=== PATIENT | female | born 1935 | race Caucasian/White ===

== ENCOUNTER 2018-04-20 16:14 | Emergency (ER) | payer MEDICARE, BC ==
[~2018-04-20] VITALS: Ht 157.5 cm; Wt 49.9 kg
[~2018-04-20 16:14] MED LIST: ACET325T9 PO; FURO-68 PO; FURO40TA4 PO; GABA300C18 PO; HYDR-2678 PO; Hydrocodone/Acetaminophen PO; LOSA25TA PO; LOSA25TA54 PO; MIRT15TA3 PO; OMEP40CA5 PO; POTA20LI2 PO; POTA20PA30 PO; PSYL0.5215 PO; PYRI60TA PO; PYRI60TA2 PO
--- NOTE | 2018-04-20 16:44 | PHYS DOC ---
Past Medical History Past Medical History: Depression, Hypertension Additional Past Medical Histor: myasthenia gravis Past Medical History heart murmur Past Surgical History: Cholecystectomy, Tonsillectomy Alcohol Use: None Drug Use: None Adult General Chief Complaint Chief Complaint: MECHANICAL FALL HPI HPI Patient is 82 yo female who was waiting for the bus outside [facility] and slipped, causing a moderate sized ([id number]) skin tear to anteromedial aspect RLE. Patient reports the accident was not preceded by any acute alteration. She denies chest pain, shortness of breath, dizziness, headache, abdominal pain, nausea, vomiting, or dysuria. She reports she did not hit her head and did not lose consciousness. She also reports she was able to walk after the fall. She denies taking blood thinners. She denies surgery on that right leg. She denies pain anywhere else. She reports she has received a tetanus booster within the last [address] Simon is her primary care provider. Review of Systems Review of Systems Constitutional: Denies fever or chills [] Eyes: Denies change in visual acuity, redness, or eye pain [] Respiratory: Denies cough or shortness of breath [] Cardiovascular: Denies palpitations or chest pain. GI: Denies abdominal pain, nausea, vomiting, or diarrhea [] : Denies dysuria or hematuria [] Musculoskeletal: Admits chronic low back and L leg pain. Integument: Admits dry skin on face and skin tear to right anterior tibial area Neurologic: Denies headache, focal weakness or sensory changes [] Complete systems were reviewed and found to be within normal limits, except as documented in this note. Current Medications Current Medications Current Medications Medications (Trade) Dose Ordered Sig/Nathalie Start Time Stop Time Status Last Admin Dose Admin Neomycin/ Polymyxin/ Bacitracin (Triple Antibiotic Ointment) 1 pkt 1X ONCE 04/20/18 16:45 04/20/18 16:46 DC 04/20/18 17:50 1 PKT Allergies Allergies Allergies Coded Allergies Type Severity Reaction Last Updated Verified No Known Drug Allergies 09/15/15 No Physical Exam Physical Exam Constitutional: Well developed, well nourished, no acute distress, non-toxic appearance. [] HENT: Normocephalic, atraumatic, oropharynx moist, nose normal. [] Eyes: PERRL, EOMI, conjunctiva normal, no discharge. [] Neck: Normal range of motion, no tenderness [] Cardiovascular:Heart rate regular rhythm, Blowing systolic murmur appreciated. Lungs & Thorax: Bilateral breath sounds clear to auscultation [] Abdomen: Soft, no tenderness Skin: Warm, dry, no erythema, small ([id number]) skin tear anterior aspect RLE. Significant ecchymosis around skin tear. Extremities: No tenderness, no cyanosis, no clubbing, ROM intact, no edema. Neurologic: Alert and oriented X 3, normal motor function, normal sensory function, no focal deficits noted. No FND appreciated. Face symmetric. Current Patient Data Vital Signs Vital Signs Date Time Temp Pulse Resp B/P (MAP) Pulse Ox O2 Delivery O2 Flow Rate FiO2 04/20/18 17:45 88 20 96 04/20/18 16:14 97.8 155/67 (96) Room Air 97.8 EKG EKG [] Radiology/Procedures Radiology/Procedures [] Impressions: PROCEDURE: TIBIA FIBULA RIGHT Indication: Trauma. Laceration to the right anterior mid muñoz. TECHNIQUE: 2 views of the right tibia and fibula COMPARISON: None Findings/ impression: No acute fracture or dislocation. Mild tricompartmental osteoarthritis of the knee. Ankle mortise is intact. Electronically signed by: Mateo Simon DO (04/20/2018 5:34 PM) [facility] Course & Med Decision Making Course & Med Decision Making Patient is 82 yo female who presents via EMS following mechanical fall while getting onto bus at 1555. Patient reports she is not on blood thinners, did not hit her head, and did not lose consciousness. On physical exam her vitals are WNL and she is resting comfortably with a 2cm x 3cm skin tear on the anterior aspect of her right leg. Imaging revealed no acute osseous abnormality. The wound was cleaned, bacitracin ointment applied, and dressed. Patient tolerated the procedure well. Patient ambulated unassisted with cane to bathroom after procedure. Patient asked that we speak to her PCP (Dr. Simon) to inform him of her fall, which we did (1800). Discharged patient home with instructions to follow up with PCP. Patient voiced understanding and agreement with plan. Dragon Disclaimer Dragon Disclaimer This electronic medical record was generated, in whole or in part, using a voice recognition dictation system. Laceration/Wound Repair Laceration/Wound Repair : Wound Location: lower extremity Wound's Depth, Shape: superficial Wound Explored: no foreign body removed Irrigated w/ Saline (ccs): 500 Betadine Prep?: No Wound Debrided: minimal Sterile Dressing Applied?: Yes Progress Wound cleaned with chlorhexadine and irrigated with 500mL NS. Xray appears to show possible foreign body, however on exploration of wound no object appreciated. As wound is superficial skin tear felt comfortable foreign body was not present. Cut avulsed skin away with straight iris scissors. Bacitracin abx ointment applied to wound. Telfa placed over wound. Kerlex wrapped around wound. Coban around kerlex to secure dressing. Departure Departure Impression: Primary Impression: Fall Additional Impressions: Skin tear Contusion of leg, right Disposition: 01 HOME, SELF-CARE Condition: STABLE Referrals: SHY SIMON MD (PCP) Patient Instructions: Contusion, Kytw-[id number], Fall Prevention and Home Safety , Yeat-ky-Geem, Skin Tear Care, Evvu-hv-Ucrl Additional Instructions: Do not soak your wound. You may shower. Clean wound daily with soap and water. Change dressing 2 times daily. Use over the counter antibiotic ointment with each dressing change. Use [id number] ibuprofen or Tylenol for pain. Problem Qualifiers Primary Impression: Fall Encounter type: initial encounter Qualified Codes: W19.XXXA - Unspecified fall, initial encounter Additional Impressions: Contusion of leg, right Encounter type: initial encounter Qualified Codes: S80.11XA - Contusion of right lower leg, initial encounter JUSTINE CABRAL DO Apr 20, 2018 16:43
[2018-04-20] MEDS ORDERED: NEOMY/BACITR/POLYMYXIN OINT PACKET. TP ONE (16:45)
--- NOTE | 2018-04-20 17:39 | RAD ---
Indication: Trauma. Laceration to the right anterior mid muñoz. TECHNIQUE: 2 views of the right tibia and fibula COMPARISON: None Findings/ impression: No acute fracture or dislocation. Mild tricompartmental osteoarthritis of the knee. Ankle mortise is intact. Electronically signed by: Mateo Rivas DO (04/20/2018 5:34 PM) [facility]
[2018-04-20 17:45] VITALS: BP 190/79
[2018-05-05] MEDS ORDERED: CYAN-25 PO (18:01)
[2018-05-05] MEDS ORDERED: FERR325T14 PO (18:01)
[2018-05-05] MEDS ORDERED: SERT25TA4 PO (18:01)
== END 2018-04-20 17:57 | disposition home or self-care (01) ==
LOC: ER 16:14
DX: S81.812A Laceration without foreign body, left lower leg, initial encounter (principal); G89.29 Other chronic pain; M54.5 Low back pain; F32.9 Major depressive disorder, single episode, unspecified; I10 Essential (primary) hypertension; Z90.49 Acquired absence of other specified parts of digestive tract; Z90.89 Acquired absence of other organs; W01.0XXA Fall on same level from slipping, tripping and stumbling without subsequent striking against object, initial encounter; Y93.89 Activity, other specified; Y92.89 Other specified places as the place of occurrence of the external cause; Y99.8 Other external cause status
CPT/HCPCS: 73590; 99284

== ENCOUNTER 2019-02-08 18:57 | Emergency (ER) | payer MEDICARE, BC ==
[~2019-02-08] VITALS: Ht 149.9 cm; Wt 47.2 kg
[~2019-02-08 18:57] MED LIST changes: +CYAN-25 PO; +FERR325T14 PO; +OMEP40CA45 PO; -OMEP40CA5 PO; +SERT25TA4 PO
--- NOTE | 2019-02-08 19:19 | PHYS DOC ---
Past Medical History Past Medical History: Depression, Hypertension Additional Past Medical Histor: myasthenia gravis (FIGUEROA BATES APRN) Past Surgical History: Cholecystectomy, Tonsillectomy (FIGUEROA BATES APRN) Alcohol Use: None Drug Use: None (FIGUEROA BATES APRN) Attending Signature I have participated in the care of this patient and I have reviewed and agree with all pertinent clinical information above including history, exam, and recommendations. (SEAMUS WESTFALL MD) Adult General Chief Complaint Chief Complaint: CONTISPATION HPI HPI Patient is a 83 year old Female who presents with patient states she's had con stipation for the last 4 days. Patient states she has not tried taking any stool softeners or laxatives or using enema. Patient states she is having pain at the rectum when she sits. Patient denies nausea or vomiting. Patient states she does feel distended and the lack of appetite but she is nauseated. Patient denies seeing any blood in her stool. (FIGUEROA BATES APRN) Review of Systems Review of Systems GI: Constipation and rectal pain. Denies abdominal pain, nausea, vomiting, bloody stools or diarrhea [] All other systems were reviewed and found to be within normal limits, except as documented in this note. (FIGUEROA BATES APRN) Current Medications Current Medications Current Medications Medications (Trade) Dose Ordered Sig/Nathalie Start Time Stop Time Status Last Admin Dose Admin Docusate Sodium (Enemeez) 283 mg 1X ONCE 02/08/19 19:30 02/08/19 19:31 Cancel (SEAMUS WESTFALL MD) Allergies Allergies Allergies Coded Allergies Type Severity Reaction Last Updated Verified No Known Drug Allergies 09/15/15 No (SEAMUS WESTFALL MD) Physical Exam Physical Exam Constitutional: Well developed, well nourished, no acute distress, non-toxic appearance. [] HENT: Normocephalic, atraumatic, bilateral external ears normal, oropharynx moist, no oral exudates, nose normal. [] Eyes: PERRLA, EOMI, conjunctiva normal, no discharge. [] Neck: Normal range of motion, no tenderness, supple, no stridor. [] Cardiovascular:Heart rate regular rhythm, no murmur [] Lungs & Thorax: Bilateral breath sounds clear to auscultation [] Abdomen: Bowel sounds normal, soft, no tenderness, no masses, no pulsatile masses. Stool far up in the rectal vault.[] Skin: Warm, dry, no erythema, no rash. [] Back: No tenderness, no CVA tenderness. [] Extremities: No tenderness, no cyanosis, no clubbing, ROM intact, no edema. [] Neurologic: Alert and oriented X 3, normal motor function, normal sensory function, no focal deficits noted. [] Psychologic: Affect normal, judgement normal, mood normal. [] (FIGUEROA BATES APRN) Current Patient Data Vital Signs Vital Signs Date Time Temp Pulse Resp B/P (MAP) Pulse Ox O2 Delivery O2 Flow Rate FiO2 02/08/19 21:04 81 132/51 (78) 97 02/08/19 19:10 97.7 18 Room Air 97.7 (SEAMUS WESTFALL MD) Lab Values Laboratory Tests Test 02/08/19 19:24 White Blood Count 6.1 x10^3/uL (4.0-11.0) Red Blood Count 3.85 x10^6/uL (3.50-5.40) Hemoglobin 12.0 g/dL (12.0-15.5) Hematocrit 35.7 % (36.0-47.0) L Mean Corpuscular Volume 93 fL (79-100) Mean Corpuscular Hemoglobin 31 pg (25-35) Mean Corpuscular Hemoglobin Concent 34 g/dL (31-37) Red Cell Distribution Width 13.1 % (11.5-14.5) Platelet Count 218 x10^3/uL (140-400) Neutrophils (%) (Auto) 71 % (31-73) Lymphocytes (%) (Auto) 19 % (24-48) L Monocytes (%) (Auto) 9 % (0-9) Eosinophils (%) (Auto) 1 % (0-3) Basophils (%) (Auto) 1 % (0-3) Neutrophils # (Auto) 4.3 x10^3/uL (1.8-7.7) Lymphocytes # (Auto) 1.1 x10^3/uL (1.0-4.8) Monocytes # (Auto) 0.5 x10^3/uL (0.0-1.1) Eosinophils # (Auto) 0.0 x10^3/uL (0.0-0.7) Basophils # (Auto) 0.1 x10^3/uL (0.0-0.2) Sodium Level 139 mmol/L (136-145) Potassium Level 3.5 mmol/L (3.5-5.1) Chloride Level 101 mmol/L (98-107) Carbon Dioxide Level 30 mmol/L (21-32) Anion Gap 8 (6-14) Blood Urea Nitrogen 14 mg/dL (7-20) Creatinine 0.7 mg/dL (0.6-1.0) Estimated GFR (Cockcroft-Gault) 79.5 Glucose Level 108 mg/dL (70-99) H Calcium Level 9.1 mg/dL (8.5-10.1) Laboratory Tests 02/08/19 19:24 Laboratory Tests 02/08/19 19:24 (SEAMUS WESTFALL MD) Lab Values Laboratory Tests Test 02/08/19 19:24 White Blood Count 6.1 x10^3/uL (4.0-11.0) Red Blood Count 3.85 x10^6/uL (3.50-5.40) Hemoglobin 12.0 g/dL (12.0-15.5) Hematocrit 35.7 % (36.0-47.0) L Mean Corpuscular Volume 93 fL (79-100) Mean Corpuscular Hemoglobin 31 pg (25-35) Mean Corpuscular Hemoglobin Concent 34 g/dL (31-37) Red Cell Distribution Width 13.1 % (11.5-14.5) Platelet Count 218 x10^3/uL (140-400) Neutrophils (%) (Auto) 71 % (31-73) Lymphocytes (%) (Auto) 19 % (24-48) L Monocytes (%) (Auto) 9 % (0-9) Eosinophils (%) (Auto) 1 % (0-3) Basophils (%) (Auto) 1 % (0-3) Neutrophils # (Auto) 4.3 x10^3/uL (1.8-7.7) Lymphocytes # (Auto) 1.1 x10^3/uL (1.0-4.8) Monocytes # (Auto) 0.5 x10^3/uL (0.0-1.1) Eosinophils # (Auto) 0.0 x10^3/uL (0.0-0.7) Basophils # (Auto) 0.1 x10^3/uL (0.0-0.2) Sodium Level 139 mmol/L (136-145) Potassium Level 3.5 mmol/L (3.5-5.1) Chloride Level 101 mmol/L (98-107) Carbon Dioxide Level 30 mmol/L (21-32) Anion Gap 8 (6-14) Blood Urea Nitrogen 14 mg/dL (7-20) Creatinine 0.7 mg/dL (0.6-1.0) Estimated GFR (Cockcroft-Gault) 79.5 Glucose Level 108 mg/dL (70-99) H Calcium Level 9.1 mg/dL (8.5-10.1) Laboratory Tests 02/08/19 19:24 Laboratory Tests 02/08/19 19:24 (FIGUEROA BATES APRN) EKG EKG [] (FIGUEROA BATES APRN) Radiology/Procedures Radiology/Procedures [] (FIGUEROA BATES APRN) Impressions: [facility] [address] [place], [place] [id number] IMAGING REPORT Signed PATIENT: SHEILA DAVIS ACCOUNT: [id number] : 1935 LOCATION: ER AGE: 83 SEX: F EXAM STATUS: REG ER ORD. PHYSICIAN: FIGUEROA BATES APRN REASON: CONSTIPATION, low abdominal pain PROCEDURE: KUB KUB INDICATION: Constipation. COMPARISON: CT abdomen pelvis 05/09/2013. TECHNIQUE: Supine view of the abdomen was obtained. FINDINGS: Abdomen: Nonobstructive bowel gas pattern. No free air on this limited supine image. Large amount of stool in the rectal vault. Right upper quadrant surgical clips. Limited view of the lower chest demonstrates no acute abnormality. Left convex thoracolumbar curvature. IMPRESSION: Nonobstructive bowel gas pattern. Large amount of stool in the rectal vault, consistent with patient's history of constipation. Electronically signed by: Yash Acevedo MD (02/08/2019 8:52 PM) [id number] DICTATED and SIGNED BY: YASH ACEVEDO MD DATE: 02/08/192051 (FIGUEROA BATES APRN) Course & Med Decision Making Course & Med Decision Making Abdomen is soft and nontender. Patient states she does feel pressure with palpation to the abdomen. Bowel sounds are active. Afebrile. Denies dysuria symptoms. Alert and oriented. Ambulatory with steady gait. Skin pink warm and dry. Vital signs are within normal limits. I did do a rectal exam and I can feel stool at the tip of my index finger but not able to branch operations coordinator or get any of the stool out as it is too far up in the rectal vault. Stool does feel soft. There is no blood on my finger only brown stool. After soapsuds enema given patient had a large amount of stool out. Patient states she is feeling a lot better. Xray shows IMPRESSION: Nonobstructive bowel gas pattern. Large amount of stool in the rectal vault, consistent with patient's history of constipation. Rectal Exam: Normal tone, No mass, Positive control Stool: Brown, soft Guaiac: Not indicated (FIGUEROA BATES APRN) Dragon Disclaimer Dragon Disclaimer This electronic medical record was generated, in whole or in part, using a voice recognition dictation system. (FIGUEROA BATES APRN) Departure Departure Impression: Primary Impression: Constipation Disposition: 01 HOME, SELF-CARE Condition: STABLE Referrals: SHY SIMON MD (PCP) Patient Instructions: Constipation, Adult Additional Instructions: Follow up with primary care provider if needed. Drink plenty of fluids. Problem Qualifiers Primary Impression: Constipation Constipation type: unspecified constipation type Qualified Codes: K59.00 - Constipation, unspecified FIGUEROA BATES APRN Feb 08, 2019 19:19 SEAMUS WESTFALL MD Feb 09, 2019 17:29
[2019-02-08] MEDS ORDERED: DOCUSATE SODIUM 283 MG/5 ML ENEMA. PR ONE (19:30)
[2019-02-08 19:32] LABS: BASO # 0.1 x10^3/uL (0.0-0.2); BASO % 1 % (0-3); EOS % 1 % (0-3); HEMATOCRIT 35.7 % (36.0-47.0); LYMPH # 1.1 x10^3/uL (1.0-4.8); LYMPH % 19 % (24-48); MEAN CORPUSCULAR HEMOGLOBIN 31 pg (25-35); MEAN CORPUSCULAR HGB CONC 34 g/dL (31-37); MEAN CORPUSCULAR VOLUME 93 fL (79-100); MONO # 0.5 x10^3/uL (0.0-1.1); MONO % 9 % (0-9); NEUT # 4.3 x10^3/uL (1.8-7.7); NEUT % 71 % (31-73); PLATELET COUNT 218 x10^3/uL (140-400); RED BLOOD COUNT 3.85 x10^6/uL (3.50-5.40); RED CELL DISTRIBUTION WIDTH 13.1 % (11.5-14.5); WHITE BLOOD COUNT 6.1 x10^3/uL (4.0-11.0)
[2019-02-08 19:40] LABS: CALCIUM 9.1 mg/dL (8.5-10.1); CREATININE 0.7 mg/dL (0.6-1.0); GFR 79.5; POTASSIUM 3.5 mmol/L (3.5-5.1)
--- NOTE | 2019-02-08 20:55 | RAD ---
KUB INDICATION: Constipation. COMPARISON: CT abdomen pelvis 05/09/2013. TECHNIQUE: Supine view of the abdomen was obtained. FINDINGS: Abdomen: Nonobstructive bowel gas pattern. No free air on this limited supine image. Large amount of stool in the rectal vault. Right upper quadrant surgical clips. Limited view of the lower chest demonstrates no acute abnormality. Left convex thoracolumbar curvature. IMPRESSION: Nonobstructive bowel gas pattern. Large amount of stool in the rectal vault, consistent with patient's history of constipation. Electronically signed by: De Acevedo MD (02/08/2019 8:52 PM) [facility]
[2019-02-08 21:04] VITALS: BP 132/51
== END 2019-02-08 21:10 | disposition home or self-care (01) ==
LOC: ER 18:57
DX: K59.00 Constipation, unspecified (principal); I10 Essential (primary) hypertension
CPT/HCPCS: 36415; 74018; 80048; 85025; 99285

== ENCOUNTER 2019-05-05 20:27 | Emergency (ER) | payer MEDICARE, BC ==
[~2019-05-05] VITALS: Ht 152.4 cm; Wt 45.5 kg
--- NOTE | 2019-05-05 21:17 | PHYS DOC ---
Past Medical History Past Medical History: Depression, Hypertension Additional Past Medical Histor: myasthenia gravis Past Surgical History: Cholecystectomy, Tonsillectomy Smoking Status: Never Smoker Alcohol Use: None Drug Use: None Adult General Chief Complaint Chief Complaint: CONSTIPATION HPI HPI 83-year-old female presents to the emergency department with complaints of constipation, last normal bowel movement was Tuesday. She describes loose stool since then she describes abdominal distention, does have flatus. Denies any nausea, vomiting or fever. She denies any current abdominal pain at this time. She states she's had issues like this a couple of years ago requiring an enema. Patient denies any chest pain, shortness breath, nausea, vomiting, headache or visual changes. Review of Systems Review of Systems Constitutional: Denies fever or chills [] Respiratory: Denies cough or shortness of breath [] Cardiovascular: No additional information not addressed in HPI [] GI: Denies abdominal pain, nausea, vomiting, + constipation [] Musculoskeletal: Denies back pain or joint pain [] Integument: Denies rash or skin lesions [] Neurologic: Denies headache, focal weakness or sensory changes [] All other systems were reviewed and found to be within normal limits, except as documented in this note. Allergies Allergies Allergies Coded Allergies Type Severity Reaction Last Updated Verified No Known Drug Allergies 09/15/15 No Physical Exam Physical Exam Constitutional: Well developed, well nourished, no acute distress, non-toxic appearance. [] Cardiovascular:Heart rate regular rhythm, no murmur [] Lungs & Thorax: Bilateral breath sounds clear to auscultation [] Abdomen: Bowel sounds normal, soft, no tenderness, no masses, no pulsatile masses, mild distention[] Skin: Warm, dry, no erythema, no rash. [] Back: No tenderness, no CVA tenderness. [] Extremities: No tenderness, no edema. [] Neurologic: Alert and oriented X 3, no focal deficits noted. [] Psychologic: Affect normal, judgement normal, mood normal. [] Rectal exam without hard stool in rectal vault, non bloody stool Current Patient Data Vital Signs Vital Signs Date Time Temp Pulse Resp B/P (MAP) Pulse Ox O2 Delivery O2 Flow Rate FiO2 05/05/19 20:50 98.1 106 20 171/78 (109) 95 Room Air 98.1 EKG EKG [] Radiology/Procedures Radiology/Procedures [facility] [address] [place] [address] IMAGING REPORT Signed PATIENT: SHEILA DAVIS ACCOUNT: [id number] : 1935 LOCATION: ER AGE: 83 SEX: F EXAM STATUS: REG ER ORD. PHYSICIAN: SEAMUS WESTFALL MD REASON: constipation PROCEDURE: KUB EXAM: Supine AP view of the abdomen DATE: 05/05/2019 9:12 PM INDICATION: Constipation COMPARISON: 02/08/2019 FINDINGS: Large volume colonic stool content is seen. No bowel obstruction. Clustered calcifications are seen. Evaluation for free intraperitoneal gas is limited on this supine exam. Thoracolumbar scoliosis. IMPRESSION: 1. Large volume colonic stool content is seen. Electronically signed by: Davy Ortiz MD (05/05/2019 10:16 PM) [id number] DICTATED and SIGNED BY: DAVY ORTIZ MD DATE: 05/05/192215 [] Course & Med Decision Making Course & Med Decision Making Pertinent Labs and Imaging studies reviewed. (See chart for details) []83-year-old female presents to the emergency department with complaints of constipation, last normal bowel movement was Tuesday. She describes loose stool since then she describes abdominal distention, does have flatus. Denies any nausea, vomiting or fever. She denies any current abdominal pain at this time. She states she's had issues like this a couple of years ago requiring an enema. Patient denies any chest pain, shortness breath, nausea, vomiting, headache or visual changes. Xray reviewed - no obstruction Milk of molasses enema provided [place] enema provided Overall some relief with reassessment 2331 Plan miralax rx upon discharge KUB negative for acute obstructive process Dragon Disclaimer Dragon Disclaimer This electronic medical record was generated, in whole or in part, using a voice recognition dictation system. Departure Departure Impression: Primary Impression: Constipation Disposition: HOME, SELF-CARE Condition: IMPROVED Referrals: SHY SIMON MD (PCP) Patient Instructions: Constipation, Adult, Nzpt-lz-Luft Additional Instructions: Xray reveals no obstructive process, + constipation Some relief with enemas Miralax rx provided Increase water intake at home Return to the ER with chest pain, fever, inability to pass gas/bowel movement Scripts Polyethylene Glycol 3350 (MIRALAX) 119 Gm Powder 17 GM PO DAILY for constipation, #255 GM 0 Refills dissolve in water Prov: SEAMUS WESTFALL MD 05/05/19 Problem Qualifiers Primary Impression: Constipation Constipation type: unspecified constipation type Qualified Codes: K59.00 - Constipation, unspecified SEAMUS WESTFALL MD May 05, 2019 21:17
--- NOTE | 2019-05-05 22:19 | RAD ---
EXAM: Supine AP view of the abdomen DATE: 05/05/2019 9:12 PM INDICATION: Constipation COMPARISON: 02/08/2019 FINDINGS: Large volume colonic stool content is seen. No bowel obstruction. Clustered calcifications are seen. Evaluation for free intraperitoneal gas is limited on this supine exam. Thoracolumbar scoliosis. IMPRESSION: 1. Large volume colonic stool content is seen. Electronically signed by: Davy Frazier MD (05/05/2019 10:16 PM) [id number]
[2019-05-05] MEDS ORDERED: POLY119P4 PO (23:35)
[2019-05-05 23:39] VITALS: BP 129/58
== END 2019-05-05 23:50 | disposition home or self-care (01) ==
LOC: ER 20:27
DX: K59.00 Constipation, unspecified (principal); R19.7 Diarrhea, unspecified; R14.0 Abdominal distension (gaseous); I10 Essential (primary) hypertension; Z90.49 Acquired absence of other specified parts of digestive tract
CPT/HCPCS: 74018; 99285-25

== ENCOUNTER 2019-05-31 20:48 | Emergency (ER) | payer MEDICARE, BC ==
[~2019-05-31] VITALS: Ht 157.5 cm; Wt 42.0 kg
[~2019-05-31 20:48] MED LIST changes: +POLY119P4 PO
--- NOTE | 2019-05-31 21:31 | PHYS DOC ---
Past Medical History Past Medical History: Depression, Hypertension Additional Past Medical Histor: myasthenia gravis Past Surgical History: Cholecystectomy, Tonsillectomy Smoking Status: Never Smoker Alcohol Use: None Drug Use: None Adult General Chief Complaint Chief Complaint: CONSTIPATION HPI HPI 83-year-old female presents to the emergency Department complaints of constipation. Last bowel movement May 28. Patient was seen here in April for similar complaints by myself. She denies any nausea or vomiting has had flatus. She states she's used Colace as well as MiraLAX without improvement. Patient denies any fever. Nothing makes her symptoms worse, nothing makes her symptoms better. She denies a chest pain, shortness breath, nausea or vomiting. Review of Systems Review of Systems Constitutional: Denies fever or chills [] Respiratory: Denies cough or shortness of breath [] Cardiovascular: No additional information not addressed in HPI [] GI: abdominal pain distention, no nausea, vomiting, bloody stools or diarrhea, + flatus [] Musculoskeletal: Denies back pain or joint pain [] Integument: Denies rash or skin lesions [] Neurologic: Denies headache, focal weakness or sensory changes [] Endocrine: Denies polyuria or polydipsia [] All other systems were reviewed and found to be within normal limits, except as documented in this note. Allergies Allergies Allergies Coded Allergies Type Severity Reaction Last Updated Verified No Known Drug Allergies 09/15/15 No Physical Exam Physical Exam Constitutional: Well developed, well nourished, no acute distress, non-toxic appearance. [] HENT: Normocephalic, atraumatic, bilateral external ears normal, oropharynx moist, no oral exudates, nose normal. [] Eyes: PERRLA, EOMI, conjunctiva normal, no discharge. [] Cardiovascular: tachycardia, no murmur [] Lungs & Thorax: Bilateral breath sounds clear to auscultation [] Abdomen: Bowel sounds decreased, soft, + distention, no masses, no pulsatile masses. [] Skin: Warm, dry, no erythema, no rash. [] Back: No tenderness, no CVA tenderness. [] Extremities: No tenderness, no edema. [] Neurologic: Alert and oriented X 3, no focal deficits noted. [] Psychologic: Affect normal, judgement normal, mood normal. [] Current Patient Data Vital Signs Vital Signs Date Time Temp Pulse Resp B/P (MAP) Pulse Ox O2 Delivery O2 Flow Rate FiO2 05/31/19 21:18 97.9 101 16 122/65 (84) 94 97.9 EKG EKG [] Radiology/Procedures Radiology/Procedures [facility] [address] [place] [address] IMAGING REPORT Signed PATIENT: SHEILA DAVIS ACCOUNT: [id number] : 1935 LOCATION: ER AGE: 83 SEX: F EXAM STATUS: REG ER ORD. PHYSICIAN: SEAMUS WESTFALL MD REASON: Constipation PROCEDURE: KUB Supine abdomen. HISTORY: Constipation Supine view was taken of the abdomen. There is a large amount of stool at the rectum suggesting a fecal impaction. There is no small bowel obstruction. There is degenerative change and scoliosis in the lumbar spine. Patient had a previous cholecystectomy. IMPRESSION: 1. Increased stool at the rectum suggesting a fecal impaction. 2. No bowel obstruction. Electronically signed by: Silver Matt MD (05/31/2019 11:22 PM) [id number] DICTATED and SIGNED BY: SILVER MATT MD DATE: 05/31/192321 [] Course & Med Decision Making Course & Med Decision Making Pertinent Labs and Imaging studies reviewed. (See chart for details) []83-year-old female presents to the emergency Department complaints of constipation. Last bowel movement May 28. Patient was seen here in April for similar complaints by myself. She denies any nausea or vomiting has had flatus. She states she's used Colace as well as MiraLAX without improvement. Patient denies any fever. Nothing makes her symptoms worse, nothing makes her symptoms better. She denies a chest pain, shortness breath, nausea or vomiting. Soap suds enema completed with large amount of stool relieved Recommend dc home and follow up as outpatient with PCP Discussed dc with patient/family at bedside Dragon Disclaimer Dragon Disclaimer This electronic medical record was generated, in whole or in part, using a voice recognition dictation system. Departure Departure Impression: Primary Impression: Constipation Disposition: HOME, SELF-CARE Condition: IMPROVED Referrals: SHY SIMON MD (PCP) Patient Instructions: Constipation, Adult, [id number] Additional Instructions: Continued stool regimen at home KUB with evidence of constipation Recommend follow up with PCP as outpatient Problem Qualifiers Primary Impression: Constipation Constipation type: unspecified constipation type Qualified Codes: K59.00 - Constipation, unspecified SEAMUS WESTFALL MD May 31, 2019 21:31
--- NOTE | 2019-05-31 23:25 | RAD ---
Supine abdomen. HISTORY: Constipation Supine view was taken of the abdomen. There is a large amount of stool at the rectum suggesting a fecal impaction. There is no small bowel obstruction. There is degenerative change and scoliosis in the lumbar spine. Patient had a previous cholecystectomy. IMPRESSION: 1. Increased stool at the rectum suggesting a fecal impaction. 2. No bowel obstruction. Electronically signed by: Silver Matt MD (05/31/2019 11:22 PM) [id number]
[2019-06-01 00:18] VITALS: BP 112/63
== END 2019-06-01 00:19 | disposition home or self-care (01) ==
LOC: ER 20:48
DX: K59.00 Constipation, unspecified (principal); I10 Essential (primary) hypertension; F32.9 Major depressive disorder, single episode, unspecified; Z90.49 Acquired absence of other specified parts of digestive tract; Z90.89 Acquired absence of other organs
CPT/HCPCS: 74018; 99284

== ENCOUNTER 2019-09-30 13:44 | Emergency (ER) | payer MEDICARE, BC ==
[~2019-09-30] VITALS: Ht 152.4 cm; Wt 45.4 kg
[2019-09-30 14:11] VITALS: BP 170/74
[2019-09-30] MEDS ORDERED: LIDOCAINE 1%/EPI 1:100,000 20 ML VIAL. INJ ONE (14:15)
[2019-09-30] MEDS ORDERED: NEOMY/BACITR/POLYMYXIN OINT PACKET. TP ONE (14:15)
--- NOTE | 2019-09-30 16:48 | PHYS DOC ---
Past Medical History Past Medical History: Depression, Hypertension Additional Past Medical Histor: myasthenia gravis Past Surgical History: Cholecystectomy, Tonsillectomy Smoking Status: Never Smoker Alcohol Use: None Drug Use: None General Adult EDM: Chief Complaint: LACERATION/AVULSION HPI: HPI: 84-year-old female presents with report of left hand laceration status post fall this morning. Patient reports she got up to use the restroom after sleeping and "lost her balance "causing her to fall and strike the back of her left hand on a "candle stand ". Patient denies any head trauma. Denies loss of consciousness. Denies neck pain. Reports last tetanus was less than 5 years ago. Denies other injury. Patient reports she has very frail skin. Review of Systems: Review of Systems: Constitutional: Denies fever or chills Eyes: Denies redness or eye pain HENT: Denies nasal congestion or epistaxis Respiratory: Denies cough or shortness of breath Cardiovascular: Denies chest pain or palpitations GI: Denies abdominal pain, nausea, or vomiting : Denies dysuria or hematuria Musculoskeletal: Denies back pain or joint pain Integument: Denies rash; reports laceration to left hand Neurologic: Denies headache, focal weakness or sensory changes Complete systems were reviewed and found to be within normal limits, except as documented in this note. Current Medications: Current Medications Medications (Trade) Dose Ordered Sig/Nathalie Start Time Stop Time Status Last Admin Dose Admin Lidocaine/ Epinephrine (LIDOCAINE 1%-EPI 1:100,000 Multi-Dose) 20 ml 1X ONCE 09/30/19 14:15 09/30/19 14:20 DC 09/30/19 14:37 20 ML Neomycin/ Polymyxin/ Bacitracin (Triple Antibiotic Ointment) 1 pkt 1X ONCE 09/30/19 14:15 09/30/19 14:20 DC 09/30/19 14:37 1 PKT Allergies: Allergies: Allergies Coded Allergies Type Severity Reaction Last Updated Verified No Known Drug Allergies 09/15/15 No Physical Exam: PE: Constitutional: Well developed, well nourished, no acute distress, non-toxic appearance HENT: Normocephalic, atraumatic Eyes: PERRL, EOMI, conjunctiva normal, no discharge Neck: Normal range of motion, no midline tenderness, supple Cardiovascular: Left radial pulse +2, cap refill less than 2 seconds Lungs & Thorax: No respiratory distress, equal chest rise and fall Skin: Warm, dry, no erythema, ecchymosis noted to dorsal aspect of left hand, 4 cm laceration noted to dorsum aspect at base of 5th finger, bleeding controlled, laceration widens with 5th finger flexion. Back: No midline tenderness, no CVA tenderness Extremities: Left hand laceration as above, no bony tenderness, ROM intact, no edema Neurologic: Alert and oriented X 3, normal motor function, normal sensory function, no focal deficits noted Psychologic: Affect normal, judgment normal Current Patient Data: Vital Signs: Vital Signs Date Time Temp Pulse Resp B/P (MAP) Pulse Ox O2 Delivery O2 Flow Rate FiO2 09/30/19 14:11 99.0 99 18 170/74 (106) 95 Room Air 99.0 EKG: EKG: [] Radiology/Procedures: Radiology/Procedures: [] Course & Med Decision Making: Course & Med Decision Making Patient presents status post fall with laceration to dorsal aspect of left hand at base of 5th finger. No bony tenderness noted. Patient denies any dizziness or lightheadedness. Denies headache or neck pain. Patient neurologically intact. Reports tetanus less than 5 years ago. Wound cleaned, repaired, and dressed. Aluminium finger splint applied for protection. Patient stable for discharge with outpatient follow-up with PCP. Discussed findi ngs and plan with patient and family, who acknowledge understanding and agreement. Gabo Disclaimer: Gabo Disclaimer: This electronic medical record was generated, in whole or in part, using a voice recognition dictation system. Splinting Splinting : Location: Left 5th finger Pre-Made Type: metal (finger splint) Pre-Proc Neuro Vasc Exam: normal Post-Proc Neuro Vasc Exam: normal, unchanged from pre-exam Laceration/Wound Repair Laceration/Wound Repair : Wound Location: upper extremity (left hand- base of 5th finger dorsal aspect) Wound's Depth, Shape: linear Wound Length (cm): 4 Wound Explored: clean Irrigated w/ Saline (ccs): 200 Anesthesia: Lidocaine w/ Epi (1%) Volume Anesthetic (ccs): 2 Wound Debrided: minimal Wound Repaired With: sutures Suture Size/Type: 5:0, nylon Number of Sutures: 11 Sterile Dressing Applied?: Yes Splint Applied?: Yes Type of Splint Applied: Aluminium finger splint Progress Verbal consent obtained. Time out performed. Hand hygiene utilized. Wound cleaned with ChloraPrep. Anesthesia obtained via a 30-gauge hypodermic needle with (2) mL's of lidocaine 1% with epinephrine. Copious irrigation performed. Wound well approximated with 5-0 Nylon x 11 simple interrupted sutures. Patient tolerated procedure well and without difficulty. Empiric antibiotic ointment applied prior to sterile dressing. An aluminium finger splint applied for protection of sutures. Departure Departure Impression: Primary Impression: Laceration of hand Qualified Codes: S61.412A - Laceration without foreign body of left hand, initial encounter Disposition: HOME, SELF-CARE Condition: STABLE Referrals: SHY SIMON MD (PCP) Patient Instructions: Laceration Care, Adult, [id number] Additional Instructions: Do not soak your wound. You may shower. Clean wound daily with soap and water. Change dressing 2 times daily. Use over the counter antibiotic ointment with each dressing change. Sutures need to be removed in 7-10 days. Present to your family doctor or local urgent care for removal. You may also present to the ED but it will be an additional visit/charge. After suture removal you may use Vitamin E ointment to soften the wound and prevent scarring. Use splint to protect sutures for next 2-5 days Justicifation of Admission Dx: Justifications for Admission: Justification of Admission Dx: N/A JUSTINE CABRAL DO Sep 30, 2019 16:48
== END 2019-09-30 17:36 | disposition home or self-care (01) ==
LOC: ER 13:44
DX: S61.217A Laceration without foreign body of left little finger without damage to nail, initial encounter (principal); F32.9 Major depressive disorder, single episode, unspecified; I10 Essential (primary) hypertension; Z90.49 Acquired absence of other specified parts of digestive tract; Z90.89 Acquired absence of other organs; W18.39XA Other fall on same level, initial encounter; Y93.89 Activity, other specified; Y92.89 Other specified places as the place of occurrence of the external cause; Y99.8 Other external cause status
CPT/HCPCS: 12002; 99283; J3490; 12001

== ENCOUNTER 2019-12-06 13:16 | Inpatient (IN) | payer MEDICARE, BC ==
[~2019-12-06] VITALS: Ht 157.5 cm; Wt 50.0 kg
[2019-12-06] MEDS ORDERED: fentaNYL PF VIAL 100 MCG/2 ML VIAL IVP ONE (14:30)
--- NOTE | 2019-12-06 14:36 | PHYS DOC ---
Past Medical History Past Medical History: Depression, Hypertension, Other Additional Past Medical Histor: myasthenia gravis Past Surgical History: Cholecystectomy, Tonsillectomy Smoking Status: Never Smoker Alcohol Use: None Drug Use: None General Adult EDM: Chief Complaint: MECHANICAL FALL HPI: HPI: Patient is a 84 year old female who presents with patient states she was trying to go up some stairs on the porch and she tripped and because she did not quite get the one leg up high enough and she fell onto the porch. She states that she thinks that she fell more so on the left hip and she scraped up her left elbow. She does have a large skin tear to the right elbow that is probably the size of an egg. Some of the skin is missing. Bleeding is controlled. Patient also complains of her chronic left hip pain. She states that they took her off her Tylenol and the hip pain got worse over the last week they put her back on Tylenol. She states is in the left lateral hip and it is sharp and shooting and radiates down the leg. She states that she does have sciatica. Patient denies hitting her head, LOC, dizziness, chest pain, shortness of air, abdominal pain, nausea, vomiting, diarrhea, fever, dysuria symptoms, back pain, neck pain, headache, numbness or tingling, focal weakness. She states that she usually walks with a cane or a walker. She denies blood thinners and states that she did not hit her head. Currently rating her pain at a 6 out of 10. Patient is complaining more of the chronic left hip pain at this time. Review of Systems: Review of Systems: Constitutional: Denies fever or chills. [] Eyes: Denies change in visual acuity. [] HENT: Denies nasal congestion or sore throat. [] Respiratory: Denies cough or shortness of breath. [] Cardiovascular: Denies chest pain or edema. [] GI: Denies abdominal pain, nausea, vomiting, bloody stools or diarrhea. [] : Denies dysuria. [] Musculoskeletal: Denies back pain. Bilateral hip joint pain. Right elbow pain. [] Integument: Denies rash. Skin tear to right elbow [] Neurologic: Denies headache, focal weakness or sensory changes. [] Endocrine: Denies polyuria or polydipsia. [] Lymphatic: Denies swollen glands. [] Psychiatric: Denies depression or anxiety. [] Heart Score: Risk Factors: Risk Factors: DM, Current or recent (<one month) smoker, HTN, HLP, family hist ory of CAD, obesity. Risk Scores: Score 0 - 3: 2.5% MACE over next 6 weeks - Discharge Home Score 4 - 6: 20.3% MACE over next 6 weeks - Admit for Clinical Observation Score 7 - 10: 72.7% MACE over next 6 weeks - Early Invasive Strategies Current Medications: Current Medications Medications (Trade) Dose Ordered Sig/Nathalie Start Time Stop Time Status Last Admin Dose Admin Fentanyl Citrate (Fentanyl 2ml Vial) 25 mcg 1X ONCE 12/06/19 14:30 12/06/19 14:31 Allergies: Allergies: Allergies Coded Allergies Type Severity Reaction Last Updated Verified No Known Drug Allergies 09/15/15 No Physical Exam: PE: Constitutional: Well developed, well nourished, no acute distress, non-toxic ap pearance. [] HENT: Normocephalic, atraumatic, bilateral external ears normal, oropharynx moist, no oral exudates, nose normal. [] Eyes: PERRLA, EOMI, conjunctiva normal, no discharge. [] Neck: Normal range of motion, no tenderness, supple, no stridor. [] Cardiovascular:Heart rate regular rhythm, no murmur [] Lungs & Thorax: Bilateral breath sounds clear to auscultation [] Abdomen: Bowel sounds normal, soft, no tenderness, no masses, no pulsatile masses. [] Skin: Warm, dry, no erythema, no rash. Right elbow skin tear. [] Back: No tenderness, no CVA tenderness. [] Extremities: Left lateral hip tenderness, no cyanosis, no clubbing, ROM intact, no edema. [] Neurologic: Alert and oriented X 3, normal motor function, normal sensory function, no focal deficits noted. [] Psychologic: Affect normal, judgement normal, mood normal. [] Current Patient Data: Vital Signs: Vital Signs Date Time Temp Pulse Resp B/P (MAP) Pulse Ox O2 Delivery O2 Flow Rate FiO2 12/06/19 13:16 99.8 103 16 179/77 (111) 96 Room Air 99.8 EKG: EK and read by Dr. Bolton as sinus tach with some LVH repolarization but there is no STEMI. [] Radiology/Procedures: Radiology/Procedures: [] Impression: [facility] [address] [place] [address] IMAGING REPORT Signed PATIENT: SHEILA DAVIS ACCOUNT: [id number] : 1935 LOCATION: ER AGE: 84 SEX: F EXAM STATUS: REG ER ORD. PHYSICIAN: FIGUEROA BATES APRN REASON: pain PROCEDURE: ELBOW RIGHT 3V AP view of the pelvis and frog leg view of both hips Clinical indications: Pain. FINDINGS: There is mild joint space narrowing of the central aspect of the right hip joint without significant spurring of the right hip joint. This is consistent with mild primary degenerative osteoarthritis. Left hip joint is unremarkable. No erosive arthropathy is evident. No acute fracture or dislocation or lytic process or diastases is seen. Levoscoliosis of the lumbar spine is evident. 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 3 view study of the right elbow Clinical indications: Right elbow pain FINDINGS: No joint effusion is seen. No acute fracture or dislocation or lytic process evident. There is a small traction spur of the olecranon attachment of triceps tendon. No soft tissue swelling of the olecranon bursa is seen. IMPRESSION: No acute osseous abnormality. Electronically signed by: Jennifer Zelaya MD (12/06/2019 3:28 PM) [id number] DICTATED and SIGNED BY: JENNIFER ZELAYA MD DATE: 12/06/19 1528 [facility] [address] [place] [address] IMAGING REPORT Signed PATIENT: SHEILA DAVIS ACCOUNT: [id number] : 1935 LOCATION: ER AGE: 84 SEX: F EXAM STATUS: REG ER ORD. PHYSICIAN: FIGUEROA BATES APRN REASON: pain PROCEDURE: HIP BILATERAL WITH PELVIS AP view of the pelvis and frog leg view of both hips Clinical indications: Pain. FINDINGS: There is mild joint space narrowing of the central aspect of the right hip joint without significant spurring of the right hip joint. This is consistent with mild primary degenerative osteoarthritis. Left hip joint is unremarkable. No erosive arthropathy is evident. No acute fracture or dislocation or lytic process or diastases is seen. Levoscoliosis of the lumbar spine is evident. 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 3 view study of the right elbow Clinical indications: Right elbow pain FINDINGS: No joint effusion is seen. No acute fracture or dislocation or lytic process evident. There is a small traction spur of the olecranon attachment of triceps tendon. No soft tissue swelling of the olecranon bursa is seen. IMPRESSION: No acute osseous abnormality. Electronically signed by: Jennifer Zelaya MD (12/06/2019 3:28 PM) [id number] DICTATED and SIGNED BY: JENNIFER ZELAYA MD DATE: 12/06/19 1528 [facility] [address] [place] [address] IMAGING REPORT Signed PATIENT: SHEILA DAVIS ACCOUNT: [id number] : 1935 LOCATION: ER AGE: 84 SEX: F EXAM STATUS: REG ER ORD. PHYSICIAN: FIGUEROA BATES APRN REASON: fall, BACK PAIN PROCEDURE: CT LUMBAR SPINE WO CONTRAST CT LUMBAR SPINE WO CONTRAST Indication: Fall, back pain Technique: Noncontrast CT imaging was performed of the lumbar spine, multiplanar reconstruction images submitted. One or more of the following individualized dose reduction techniques were utilized for this examination: 1. Automated exposure control 2. Adjustment of the mA and/or kV according to patient size 3. Use of iterative reconstruction technique. Comparison: CT abdomen pelvis exam 05/09/2013, no previous dedicated lumbar spine exam Findings: Lumbar vertebral body stature is fairly similar comparing the coronal images available for both exams, some variable multilevel mild endplate concavity. There is moderate to severe levoscoliosis centered near the L2 level. Mild inferior height loss of T12 is also similar compared with the 2016 CTA chest exam. No acute lumbar spine fracture is identified by CT. There is multilevel facet degenerative change. There is multilevel variable moderate to severe lumbar degenerative disc disease, relative sparing of L3-4. Spinal canal is suboptimally evaluated without myelographic contrast, likely degree of narrowing the far left lateral recess at L4-5 and on the right at L2-3. There is multilevel lumbar neural foramina compromise, moderate narrowing such as on the right at T11-12 through L2-3, moderate to severe narrowing on the left at L4-5 and L5-S1. 1.9 cm transverse focus of somewhat nodular appearing density of the right lower lobe near the base is fairly similar compared with 2016 chest CTA, adjacent fibrotic change present. There is sigmoid diverticulosis. There is calcified plaque of the abdominal aorta and branches. There is 0.4 cm right renal calculus. IMPRESSION: 1. No convincing acute lumbar spine fracture is identified by CT, some variable multilevel mild endplate concavity fairly similar compared with old exams. MRI would more accurately evaluate for marrow edema if there is clinical suspicion for a subtle compression fracture. 2. There is lumbar levoscoliosis. There are multilevel lumbar degenerative disc disease. There is multilevel lumbar neural foramina compromise, also degree of variable lateral recess stenosis. 3. There is small nonobstructive right renal calculus. 4. There is colonic diverticulosis. 5. There is focus of noncalcified somewhat nodular appearing density of the right lower lobe of the lung near the base although similar compared with the 2016 chest CTA. Electronically signed by: Yash Shahid MD (12/06/2019 3:14 PM) [id number] DICTATED and SIGNED BY: YASH SHAHID MD DATE: 12/06/19 1514 Course & Med Decision Making: Course & Med Decision Making Pertinent Labs and Imaging studies reviewed. (See chart for details) See HPI. Alert and oriented x4. Speaks in full complete sentences. Patient does have full range of motion and can lift her leg and bend at bilateral hips and knees. She can wiggle all of her toes and move at her ankles. She has no tenderness except for the left lateral hip. She does have slight tenderness o mayra the right elbow skin tear there is no bruising or deformity and she has full range of motion of the arm. She can wiggle all of her fingers. Her skin is pink warm and dry. She has bilateral pedal pulses and no swelling. There are no deformity to any joints on her body. She has no joint laxities. No focal weaknesses. She has no pain with the pelvic rock. She has no focal bony spinal tenderness pain. She has full range of motion of her neck although she does have some scoliosis so it is limited due to that. There is no bumps, abrasions, lacerations, tenderness or deformities to her face or skull. Again she denies hitting her head. She denies any visual changes. PERRLA. She is moving all of her extremities and has equal strengths. We have gotten the patient up and she was not able to ambulate. She states that she is in a lot of pain. She states she also lives alone and does not feel safe going home. I talked to Dr. Rivas who states to admit the patient and also consult Dr. Bishop for the patient's myasthenia gravis. X-ray show no acute findings. [] [place]ma[place] Disclaimer: Gabo Disclaimer: This electronic medical record was generated, in whole or in part, using a voice recognition dictation system. Departure Departure Impression: Primary Impression: Fall Qualified Codes: W19.XXXA - Unspecified fall, initial encounter Additional Impression: Unable to ambulate Disposition: ADMITTED INPATIENT Admitting Physician: Shy Rivas Condition: STABLE Referrals: SHY RIVAS MD (PCP) Justicifation of Admission Dx: Justifications for Admission: Justification of Admission Dx: Yes Comments: UNABLE TO AMBULATE FIGUEROA BATES TALENT COORDINATOR Dec 06, 2019 14:36
--- NOTE | 2019-12-06 15:05 | EKG ---
[facility] [address] [place] [address] Test Date: 2019-12-06 Test Time: 14:57:00 Pat Name: SHEILA DAVIS Department: Room: Gender: F Senior Biostatistician/Group Leader: : 1935 Requested By: FIGUEROA BATES Order Number: [id number] Reading MD: Measurements Intervals [place] Rate: 109 P: 128 NM: 182 QRS: 8 QRSD: 92 T: 168 QT: 322 QTc: 435 Interpretive Statements SUPRAVENTRICULAR RHYTHM LVH WITH REPOLARIZATION ABNORMALITY ABNORMAL ECG RI6.02 No previous ECG available for comparison
--- NOTE | 2019-12-06 15:17 | RAD ---
CT LUMBAR SPINE WO CONTRAST Indication: Fall, back pain Technique: Noncontrast CT imaging was performed of the lumbar spine, multiplanar reconstruction images submitted. One or more of the following individualized dose reduction techniques were utilized for this examination: 1. Automated exposure control 2. Adjustment of the mA and/or kV according to patient size 3. Use of iterative reconstruction technique. Comparison: CT abdomen pelvis exam 05/09/2013, no previous dedicated lumbar spine exam Findings: Lumbar vertebral body stature is fairly similar comparing the coronal images available for both exams, some variable multilevel mild endplate concavity. There is moderate to severe levoscoliosis centered near the L2 level. Mild inferior height loss of T12 is also similar compared with the 2016 CTA chest exam. No acute lumbar spine fracture is identified by CT. There is multilevel facet degenerative change. There is multilevel variable moderate to severe lumbar degenerative disc disease, relative sparing of L3-4. Spinal canal is suboptimally evaluated without myelographic contrast, likely degree of narrowing the far left lateral recess at L4-5 and on the right at L2-3. There is multilevel lumbar neural foramina compromise, moderate narrowing such as on the right at T11-12 through L2-3, moderate to severe narrowing on the left at L4-5 and L5-S1. 1.9 cm transverse focus of somewhat nodular appearing density of the right lower lobe near the base is fairly similar compared with 2016 chest CTA, adjacent fibrotic change present. There is sigmoid diverticulosis. There is calcified plaque of the abdominal aorta and branches. There is 0.4 cm right renal calculus. IMPRESSION: 1. No convincing acute lumbar spine fracture is identified by CT, some variable multilevel mild endplate concavity fairly similar compared with old exams. MRI would more accurately evaluate for marrow edema if there is clinical suspicion for a subtle compression fracture. 2. There is lumbar levoscoliosis. There are multilevel lumbar degenerative disc disease. There is multilevel lumbar neural foramina compromise, also degree of variable lateral recess stenosis. 3. There is small nonobstructive right renal calculus. 4. There is colonic diverticulosis. 5. There is focus of noncalcified somewhat nodular appearing density of the right lower lobe of the lung near the base although similar compared with the 2016 chest CTA. Electronically signed by: De Herrera MD (12/06/2019 3:14 PM) [id number]
[2019-12-06 15:21] LABS: BASO % 0 % (0-3); EOS % 0 % (0-3); HEMATOCRIT 32.7 % (36.0-47.0); LYMPH # 0.8 x10^3/uL (1.0-4.8); LYMPH % 7 % (24-48); MEAN CORPUSCULAR HEMOGLOBIN 30 pg (25-35); MEAN CORPUSCULAR HGB CONC 34 g/dL (31-37); MEAN CORPUSCULAR VOLUME 89 fL (79-100); MONO % 9 % (0-9); NEUT # 9.4 x10^3/uL (1.8-7.7); NEUT % 84 % (31-73); PLATELET COUNT 222 x10^3/uL (140-400); RED BLOOD COUNT 3.68 x10^6/uL (3.50-5.40); RED CELL DISTRIBUTION WIDTH 13.9 % (11.5-14.5); WHITE BLOOD COUNT 11.3 x10^3/uL (4.0-11.0)
[2019-12-06 15:30] LABS: CALCIUM 9.3 mg/dL (8.5-10.1); CREATININE 0.7 mg/dL (0.6-1.0); GFR 79.3; POTASSIUM 4.4 mmol/L (3.5-5.1)
--- NOTE | 2019-12-06 15:30 | RAD ---
AP view of the pelvis and frog leg view of both hips Clinical indications: Pain. FINDINGS: There is mild joint space narrowing of the central aspect of the right hip joint without significant spurring of the right hip joint. This is consistent with mild primary degenerative osteoarthritis. Left hip joint is unremarkable. No erosive arthropathy is evident. No acute fracture or dislocation or lytic process or diastases is seen. Levoscoliosis of the lumbar spine is evident. 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 3 view study of the right elbow Clinical indications: Right elbow pain FINDINGS: No joint effusion is seen. No acute fracture or dislocation or lytic process evident. There is a small traction spur of the olecranon attachment of triceps tendon. No soft tissue swelling of the olecranon bursa is seen. IMPRESSION: No acute osseous abnormality. Electronically signed by: Apolinar Zelaya MD (12/06/2019 3:28 PM) [id number]
[2019-12-06 15:39] LABS: ALBUMIN 3.6 g/dL (3.4-5.0); ALBUMIN/GLOBULIN RATIO 1.2 (1.0-1.7); TOTAL BILIRUBIN 0.4 mg/dL (0.2-1.0); TOTAL PROTEIN 6.6 g/dL (6.4-8.2)
[2019-12-06 15:43] LABS: BILIRUBIN,URINE NEGATIVE (NEG); CLARITY,URINE CLEAR; COLOR,URINE YELLOW; NITRITE,URINE NEGATIVE (NEG); PH,URINE 6.5 (<5.0-8.0); PROTEIN,URINE NEGATIVE (NEG-TRACE); UROBILINOGEN,URINE 0.2 mg/dL (0.2 mg/dL)
[2019-12-06 15:57] LABS: BACTERIA,URINE 0 /HPF (0-FEW)
[2019-12-06] MEDS ORDERED: NEOMY/BACITR/POLYMYXIN OINT PACKET. TP ONE (17:00)
[2019-12-06] MEDS ORDERED: ACETAMINOPHEN 325 MG TABLET. PO PRN ×2 (17:30→22:15)
[2019-12-06 18:40] VITALS: BP 132/67
[2019-12-06] MEDS: CYANOCOBALAMIN (VITAMIN B-12) 1,000 MCG TABLET. PO SCH (22:40)
[2019-12-06] MEDS: SERTRALINE 25 MG TABLET. PO SCH (22:41)
[2019-12-06] MEDS: PYRIDOSTIGMINE BROMIDE 60 MG TABLET PO SCH (22:41)
[2019-12-06] MEDS: GABAPENTIN 300 MG CAPSULE. PO SCH (22:41)
[2019-12-07] VITALS (7 sets, daily range): BP systolic 103–148; BP diastolic 51–64
[2019-12-07] MEDS: PANTOPRAZOLE 40 MG TABLET.DR. PO SCH (06:32)
[2019-12-07 06:44] LABS: BASO % 1 % (0-3); EOS # 0.1 x10^3/uL (0.0-0.7); EOS % 1 % (0-3); HEMATOCRIT 32.5 % (36.0-47.0); LYMPH # 1.1 x10^3/uL (1.0-4.8); LYMPH % 17 % (24-48); MEAN CORPUSCULAR HEMOGLOBIN 30 pg (25-35); MEAN CORPUSCULAR HGB CONC 34 g/dL (31-37); MEAN CORPUSCULAR VOLUME 90 fL (79-100); MONO # 0.9 x10^3/uL (0.0-1.1); MONO % 13 % (0-9); NEUT # 4.7 x10^3/uL (1.8-7.7); NEUT % 69 % (31-73); PLATELET COUNT 230 x10^3/uL (140-400); RED BLOOD COUNT 3.61 x10^6/uL (3.50-5.40); RED CELL DISTRIBUTION WIDTH 13.8 % (11.5-14.5); WHITE BLOOD COUNT 6.9 x10^3/uL (4.0-11.0)
[2019-12-07 07:01] LABS: ALBUMIN 3.1 g/dL (3.4-5.0); CALCIUM 9.3 mg/dL (8.5-10.1); CREATININE 0.6 mg/dL (0.6-1.0); GFR 94.8; POTASSIUM 4.1 mmol/L (3.5-5.1); TOTAL BILIRUBIN 0.5 mg/dL (0.2-1.0); TOTAL PROTEIN 6.1 g/dL (6.4-8.2)
[2019-12-07] MEDS: FERROUS SULFATE 325 MG TABLET. PO SCH (08:14)
[2019-12-07] MEDS: FUROSEMIDE 40 MG TABLET. PO SCH (08:14)
[2019-12-07] MEDS: PSYLLIUM HUSK (SUGAR FREE) 1 PKT PACKET PO SCH (08:14)
[2019-12-07] MEDS: POTASSIUM CHLORIDE 10 MEQ TABLET.ER. PO SCH (08:14)
[2019-12-07] MEDS: MIRTAZAPINE 15 MG TABLET PO SCH (08:14)
[2019-12-07] MEDS: PYRIDOSTIGMINE BROMIDE 60 MG TABLET PO SCH ×3 (08:15→17:08)
[2019-12-07] MEDS ORDERED: methylPREDNISolone ACETATE 40 MG/ML VIAL. IM ONE (09:15)
[2019-12-07] MEDS ORDERED: methylPREDNISolone ACETATE 40 MG/ML VIAL. INJ ONE (09:15)
[2019-12-07] MEDS ORDERED: BUPIVACAINE MPF 0.25% 10 ML VIAL. IJ ONE (09:15)
--- NOTE | 2019-12-07 09:28 | NUR ---
Patient has redness under bilateral breasts and groin, notified Dr. Martel, new order for nystatin cream BID.
--- NOTE | 2019-12-07 09:30 | PDOC4 ---
PROCEDURE Procedure At her request,I have injected painful left trochanteric bursa and left sacr oiliac joint under aseptic skin technique with alcohol skin prep,using 4 ml of 0.25% marcaine solution mixed with 2 ml of depo-medrol 40 mg/1 ml solution and she tolerated the procedures satisfactorily without any side effects. AUDREY MAYS MD Dec 07, 2019 09:30
--- NOTE | 2019-12-07 09:45 | CONS ---
DATE OF CONSULTATION: 12/07/2019 ATTENDING PHYSICIAN: Todd Rivas MD REASON FOR CONSULTATION: The patient was seen at the request of Dr. Rivas for rehab evaluation. HISTORY OF PRESENT ILLNESS: This is an 84-year-old female patient with chronic lower back pain from degenerative disk disease of lumbar vertebrae and also hip area pain from degenerative joint disease, admitted through the Emergency Room on 12/06/2019 after she tripped while managing stairs on the porch and she complains of left lower extremity pain and also had skin tear to her right elbow. The patient usually walks using a cane. She also had a roller walker given by her friend. She has stairs in the front and back with railing in place. She lives alone. PAST MEDICAL AND SURGICAL HISTORY: Includes depression, hypertension, myasthenia gravis, cholecystectomy and tonsillectomy. ALLERGIES: She is not known allergic to any medication. PHYSICAL EXAMINATION: Today revealed an elderly female. She is alert, oriented to time, place, person and circumstance and follows commands appropriately, moves all 4 extremities voluntarily where she had 4/5 to 4+/5 grade muscle strength. Deep tendon reflexes are 2+ and symmetrical and she had equal perception of touch and pinprick sensation bilaterally. She had diffuse tenderness to palpation over lumbar paraspinal muscles extending over to sacroiliac joint area, trochanteric bursa and over knee joint line and also over distal parts of both legs. She had crepitus on range of motion of her knee joint without any obvious knee joint effusion. No significant pain on range of motion of her hip joints. Straight leg raising test is negative bilaterally. The patient had dressing to her right elbow skin tear. She is independent with bed mobility and transfers and up walking using a roller walker. She complains of some pain in her left lower extremity while weightbearing. ASSESSMENT: Elderly female with degenerative disk disease and degenerative joint disease of lumbar vertebrae with associated bilateral trochanteric bursitis, degenerative joint disease changes of both hips and both knees. The patient with known hypertension, depression, myasthenia gravis. RECOMMENDATION: To proceed with injecting painful left trochanteric bursa and left sacroiliac joint area and to consider injecting her left knee and also left hip joint under fluoroscopy if the pain persists, hopefully home when medically stable with outpatient followup. Dr. Rivas, I appreciate asking me to participate in the care of this interesting patient. I will be glad to follow her with you as needed for rehabilitation. AUDREY MAYS MD DR: CRISTA/urbano JOB#: [id number] / [id number]
--- NOTE | 2019-12-07 09:53 | PDOC2 ---
NEUROLOGY CONSULT Date of Service DOS: DATE: 12/07/19 TIME: 09:46 Reason for Consult Reason for Consult: Myasthenia gravis Referring Physician Referring Physician: Dr. Rivas Source Source: Chart review, Patient History of Present Illness History of Present Illness The patient is 89-year-old right-handed female diagnosed with myasthenia several years ago. She has not seen a neurologist in a long time. She is maintained on pyridostigmine. Yesterday she was trying to climb her stairs and she tripped because she could not lift her leg up. She fell on the left hip and has some pain there. She also has a laceration on her right elbow. She does have chronic hip pain on the left as well. She also has back pain with occasional sciatica down the left leg. She has no history of stroke, seizure, head injury, or loss of consciousness. There is no diplopia, dysphagia, dysarthria. She believes that her myasthenia has been stable for several years. She usually gets around with a cane. Past Medical History Cardiovascular: HTN, Hyperlipidemia CENTRAL NERVOUS SYSTEM: Other (Myasthenia) GI: Constipation, GERD Psych: Depression Musculoskeletal: low back pain, Osteoarthritis ENT: Other ( cataracts, has not had surgery) Renal/: Urinary Incontinence Dermatology: Other ( skin cancer removed) Past Surgical History Past Surgical History: Cholecystectomy, Tonsillectomy, Other ( hemorrhoidectom y) Family History Family History: DM Social History Social History , lives alone in a trailer home, no tobacco or alcohol Current Medications Current Medications Current Medications Fentanyl Citrate (Fentanyl 2ml Vial) 25 mcg 1X ONCE IVP ; Start 12/06/19 at 14:30; Stop 12/06/19 at 14:31; Status DC Neomycin/ Polymyxin/ Bacitracin (Triple Antibiotic Ointment) 2 pkt 1X ONCE TP Last administered on 12/06/19at 17:50; Start 12/06/19 at 17:00; Stop 12/06/19 at 17:01; Status DC Acetaminophen (Tylenol) 650 mg PRN Q4HRS PRN PO FEVER > 100.3'F; Start 12/06/19 at 17:30; Stop 12/07/19 at 17:29; Status Cancel Acetaminophen (Tylenol) 325 mg PRN QID PRN PO PAIN; Start 12/06/19 at 22:15 Cyanocobalamin (Vitamin B-12) 1,000 mcg HS PO Last administered on 12/06/19at 22:40; Start 12/06/19 at 22:30 Ferrous Sulfate (Feosol) 325 mg DAILY PO Last administered on 12/07/19at 08:14; Start 12/07/19 at 09:00 Furosemide (Lasix) 40 mg DAILY PO Last administered on 12/07/19at 08:14; Start 12/07/19 at 09:00 Gabapentin (Neurontin) 300 mg HS PO Last administered on 12/06/19at 22:41; Start 12/06/19 at 22:30 Mirtazapine (Remeron) 15 mg DAILY PO Last administered on 12/07/19 08:14; Start 12/07/19 at 09:00 Pyridostigmine [place] (Mestinon) 60 mg TID PO Last administered on 12/07/19at 08:15; Start 12/06/19 at 22:30 Sertraline HCl (Zoloft) 25 mg HS PO Last administered on 12/06/19at 22:41; Start 12/06/19 at 22:30 Pantoprazole Sodium (Protonix) 40 mg DAILYAC PO Last administered on 12/07/19at 06:32; Start 12/07/19 at 07:30 Potassium Chloride (Klor-Con) 10 meq DAILYWBKFT PO Last administered on 12/07/19at 08:14; Start 12/07/19 at 08:00 Psyllium Hydrophilic Mucilloid (Metamucil Fiber Packet) 1 pkt DAILY PO Last administered on 12/07/19at 08:14; Start 12/07/19 at 09:00 Acetaminophen (Tylenol) 650 mg PRN QID PRN PO PAIN; Start 12/06/19 at 22:15 Methylprednisolone Acetate (DEPO-Medrol 40MG VIAL) 40 mg 1X ONCE IM Last admi nistered on 12/07/19at 09:15; Start 12/07/19 at 09:15; Stop 12/07/19 at 09:16; Status DC Methylprednisolone Acetate (DEPO-Medrol 40MG VIAL) 40 mg 1X ONCE INJ Last administered on 12/07/19at 09:15; Start 12/07/19 at 09:15; Stop 12/07/19 at 09:16; Status DC Bupivacaine HCl (Sensorcaine-Mpf 0.25%) 10 ml 1X ONCE IJ Last administered on 12/07/19at 09:15; Start 12/07/19 at 09:15; Stop 12/07/19 at 09:16; Status DC Nystatin (Mycostatin) 1 [place] BID TP ; Start 12/07/19 at 10:00 Active Scripts Active Miralax (Polyethylene Glycol 3350) 119 Gm Powder 17 Gm PO DAILY dissolve in water Tylenol (Acetaminophen) 325 Mg Tablet 1-2 Tab PO QID PRN Mestinon (Pyridostigmine [place]) 60 Mg Tablet 60 Mg PO TID Potassium Chloride Oral Liquid (Potassium Chloride) 20 Meq/15 Ml Liquid 10 Meq PO DAILY Neurontin (Gabapentin) 300 Mg Capsule 300 Mg PO HS Lasix (Furosemide) 40 Mg Tablet 40 Mg PO DAILY Reported Sertraline Hcl 25 Mg Tablet 25 Mg PO HS Ferrous Sulfate 325 Mg Tablet 1 Tab PO DAILY Vitamin B-12 (Cyanocobalamin (Vitamin B-12)) 1,000 Mcg Tablet 1 Tab PO HS Mirtazapine 15 Mg Tablet 15 Mg PO DAILY Metamucil (Psyllium Husk) 0.52 Gm Capsule 0.52 Gm PO DAILY Omeprazole 40 Mg Capsule.dr 1 Cap PO DAILY Allergies Allergies: Coded Allergies: No Known Drug Allergies (Unverified , 09/15/15) ROS Review of System Negative for fever, chills, weight loss, shortness of breath, chest pain, indigestion, hematochezia, melena, and dysuria. Full 14-point review of systems is negative. Physical Exam Physical Examination General: Well-developed, well-nourished white female in no acute distress HEENT: Normocephalic andatraumatic. Temporal arteriespulsatile and nontender. Neck: Supple without bruit, no meningismus Musculoskeletal: Stability:see neurologic. Gait exam:see neurologic. Tone:see neurologic.Strength:see neurologic. Neurological: Mental Status:intact, orientation, memory, attention span/concentration, language, fund of knowledge normal. Cranial Nerves:Pupils equal and reactive to light, extraocular movements areintact, visual monroe are full to confrontation. Facial sensation is normal. There is no facial asymmetry. Vestibulo-ocular reflex is intact. Palate elevates and tongue protrudes in midline. All other cranial related problems are negative except as mentioned before.Reflexes:2+ and symmetric with flexor plantar responses. Motor:5/5 strength with normal tone and bulk. Coordination:Finger-nose finger and [id number] testing are normal. Rapid alternating movements and fine finger movements are intact. Gait: not tested. Sensory:Normal pinprick, vibration, light touch, proprioception. Vitals VITALS Vital Signs Date Time Temp Pulse Resp B/P (MAP) Pulse Ox O2 Delivery O2 Flow Rate FiO2 12/07/19 07:00 98.0 84 16 113/56 (75) 94 Room Air 98.0 Labs Labs Laboratory Tests Test 12/06/19 15:04 12/06/19 15:33 12/07/19 05:25 White Blood Count 11.3 x10^3/uL (4.0-11.0) 6.9 x10^3/uL (4.0-11.0) Red Blood Count 3.68 x10^6/uL (3.50-5.40) 3.61 x10^6/uL (3.50-5.40) Hemoglobin 11.0 g/dL (12.0-15.5) 11.0 g/dL (12.0-15.5) Hematocrit 32.7 % (36.0-47.0) 32.5 % (36.0-47.0) Mean Corpuscular Volume 89 fL (79-100) 90 fL (79-100) Mean Corpuscular Hemoglobin 30 pg (25-35) 30 pg (25-35) Mean Corpuscular Hemoglobin Concent 34 g/dL (31-37) 34 g/dL (31-37) Red Cell Distribution Width 13.9 % (11.5-14.5) 13.8 % (11.5-14.5) Platelet Count 222 x10^3/uL (140-400) 230 x10^3/uL (140-400) Neutrophils (%) (Auto) 84 % (31-73) 69 % (31-73) Lymphocytes (%) (Auto) 7 % (24-48) 17 % (24-48) Monocytes (%) (Auto) 9 % (0-9) 13 % (0-9) Eosinophils (%) (Auto) 0 % (0-3) 1 % (0-3) Basophils (%) (Auto) 0 % (0-3) 1 % (0-3) Neutrophils # (Auto) 9.4 x10^3/uL (1.8-7.7) 4.7 x10^3/uL (1.8-7.7) Lymphocytes # (Auto) 0.8 x10^3/uL (1.0-4.8) 1.1 x10^3/uL (1.0-4.8) Monocytes # (Auto) 1.0 x10^3/uL (0.0-1.1) 0.9 x10^3/uL (0.0-1.1) Eosinophils # (Auto) 0.0 x10^3/uL (0.0-0.7) 0.1 x10^3/uL (0.0-0.7) Basophils # (Auto) 0.0 x10^3/uL (0.0-0.2) 0.0 x10^3/uL (0.0-0.2) Prothrombin Time 12.0 SEC (11.7-14.0) Prothromb Time International Ratio 0.9 (0.8-1.1) Sodium Level 136 mmol/L (136-145) 140 mmol/L (136-145) Potassium Level 4.4 mmol/L (3.5-5.1) 4.1 mmol/L (3.5-5.1) Chloride Level 102 mmol/L (98-107) 104 mmol/L (98-107) Carbon Dioxide Level 27 mmol/L (21-32) 29 mmol/L (21-32) Anion Gap 7 (6-14) 7 (6-14) Blood Urea Nitrogen 17 mg/dL (7-20) 13 mg/dL (7-20) Creatinine 0.7 mg/dL (0.6-1.0) 0.6 mg/dL (0.6-1.0) Estimated GFR (Cockcroft-Gault) 79.3 94.8 BUN/Creatinine Ratio 24 (6-20) 22 (6-20) Glucose Level 109 mg/dL (70-99) 83 mg/dL (70-99) Calcium Level 9.3 mg/dL (8.5-10.1) 9.3 mg/dL (8.5-10.1) Total Bilirubin 0.4 mg/dL (0.2-1.0) 0.5 mg/dL (0.2-1.0) Aspartate Amino Transf (AST/SGOT) 21 U/L (15-37) 19 U/L (15-37) Alanine Aminotransferase (ALT/SGPT) 17 U/L (14-59) 17 U/L (14-59) Alkaline Phosphatase 55 U/L (46-116) 60 U/L (46-116) Troponin I Quantitative 0.025 ng/mL (0.000-0.055) Total Protein 6.6 g/dL (6.4-8.2) 6.1 g/dL (6.4-8.2) Albumin 3.6 g/dL (3.4-5.0) 3.1 g/dL (3.4-5.0) Albumin/Globulin Ratio 1.2 (1.0-1.7) 1.0 (1.0-1.7) Urine Collection Type Unknown Urine Color Yellow Urine Clarity Clear Urine pH 6.5 (<5.0-8.0) Urine Specific [place] 1.010 (1.000-1.030) Urine Protein Negative mg/dL (NEG-TRACE) Urine Glucose (UA) Negative mg/dL (NEG) Urine Ketones (Stick) Negative mg/dL (NEG) Urine Blood Moderate (NEG) Urine Nitrite Negative (NEG) Urine Bilirubin Negative (NEG) Urine Urobilinogen Dipstick 0.2 mg/dL (0.2 mg/dL) Urine Leukocyte Esterase Trace (NEG) Urine RBC 6-10 /HPF (0-2) Urine WBC 1-4 /HPF (0-4) Urine Bacteria 0 /HPF (0-FEW) Laboratory Tests Test 12/06/19 15:04 12/06/19 15:33 12/07/19 05:25 White Blood Count 11.3 x10^3/uL (4.0-11.0) 6.9 x10^3/uL (4.0-11.0) Red Blood Count 3.68 x10^6/uL (3.50-5.40) 3.61 x10^6/uL (3.50-5.40) Hemoglobin 11.0 g/dL (12.0-15.5) 11.0 g/dL (12.0-15.5) Hematocrit 32.7 % (36.0-47.0) 32.5 % (36.0-47.0) Mean Corpuscular Volume 89 fL (79-100) 90 fL (79-100) Mean Corpuscular Hemoglobin 30 pg (25-35) 30 pg (25-35) Mean Corpuscular Hemoglobin Concent 34 g/dL (31-37) 34 g/dL (31-37) Red Cell Distribution Width 13.9 % (11.5-14.5) 13.8 % (11.5-14.5) Platelet Count 222 x10^3/uL (140-400) 230 x10^3/uL (140-400) Neutrophils (%) (Auto) 84 % (31-73) 69 % (31-73) Lymphocytes (%) (Auto) 7 % (24-48) 17 % (24-48) Monocytes (%) (Auto) 9 % (0-9) 13 % (0-9) Eosinophils (%) (Auto) 0 % (0-3) 1 % (0-3) Basophils (%) (Auto) 0 % (0-3) 1 % (0-3) Neutrophils # (Auto) 9.4 x10^3/uL (1.8-7.7) 4.7 x10^3/uL (1.8-7.7) Lymphocytes # (Auto) 0.8 x10^3/uL (1.0-4.8) 1.1 x10^3/uL (1.0-4.8) Monocytes # (Auto) 1.0 x10^3/uL (0.0-1.1) 0.9 x10^3/uL (0.0-1.1) Eosinophils # (Auto) 0.0 x10^3/uL (0.0-0.7) 0.1 x10^3/uL (0.0-0.7) Basophils # (Auto) 0.0 x10^3/uL (0.0-0.2) 0.0 x10^3/uL (0.0-0.2) Prothrombin Time 12.0 SEC (11.7-14.0) Prothromb Time International Ratio 0.9 (0.8-1.1) Sodium Level 136 mmol/L (136-145) 140 mmol/L (136-145) Potassium Level 4.4 mmol/L (3.5-5.1) 4.1 mmol/L (3.5-5.1) Chloride Level 102 mmol/L (98-107) 104 mmol/L (98-107) Carbon Dioxide Level 27 mmol/L (21-32) 29 mmol/L (21-32) Anion Gap 7 (6-14) 7 (6-14) Blood Urea Nitrogen 17 mg/dL (7-20) 13 mg/dL (7-20) Creatinine 0.7 mg/dL (0.6-1.0) 0.6 mg/dL (0.6-1.0) Estimated GFR (Cockcroft-Gault) 79.3 94.8 BUN/Creatinine Ratio 24 (6-20) 22 (6-20) Glucose Level 109 mg/dL (70-99) 83 mg/dL (70-99) Calcium Level 9.3 mg/dL (8.5-10.1) 9.3 mg/dL (8.5-10.1) Total Bilirubin 0.4 mg/dL (0.2-1.0) 0.5 mg/dL (0.2-1.0) Aspartate Amino Transf (AST/SGOT) 21 U/L (15-37) 19 U/L (15-37) Alanine Aminotransferase (ALT/SGPT) 17 U/L (14-59) 17 U/L (14-59) Alkaline Phosphatase 55 U/L (46-116) 60 U/L (46-116) Troponin I Quantitative 0.025 ng/mL (0.000-0.055) Total Protein 6.6 g/dL (6.4-8.2) 6.1 g/dL (6.4-8.2) Albumin 3.6 g/dL (3.4-5.0) 3.1 g/dL (3.4-5.0) Albumin/Globulin Ratio 1.2 (1.0-1.7) 1.0 (1.0-1.7) Urine Collection Type Unknown Urine Color Yellow Urine Clarity Clear Urine pH 6.5 (<5.0-8.0) Urine Specific [place] 1.010 (1.000-1.030) Urine Protein Negative mg/dL (NEG-TRACE) Urine Glucose (UA) Negative mg/dL (NEG) Urine Ketones (Stick) Negative mg/dL (NEG) Urine Blood Moderate (NEG) Urine Nitrite Negative (NEG) Urine Bilirubin Negative (NEG) Urine Urobilinogen Dipstick 0.2 mg/dL (0.2 mg/dL) Urine Leukocyte Esterase Trace (NEG) Urine RBC 6-10 /HPF (0-2) Urine WBC 1-4 /HPF (0-4) Urine Bacteria 0 /HPF (0-FEW) Images Images CT LUMBAR SPINE WO CONTRAST Indication: Fall, back pain Technique: Noncontrast CT imaging was performed of the lumbar spine, multiplanar reconstruction images submitted. One or more of the following individualized dose reduction techniques were utilized for this examination: 1. Automated exposure control 2. Adjustment of the mA and/or kV according to patient size 3. Use of iterative reconstruction technique. Comparison: CT abdomen pelvis exam 05/09/2013, no previous dedicated lumbar spine exam Findings: Lumbar vertebral body stature is fairly similar comparing the coronal images available for both exams, some variable multilevel mild endplate concavity. There is moderate to severe levoscoliosis centered near the L2 level. Mild inferior height loss of T12 is also similar compared with the 2016 CTA chest exam. No acute lumbar spine fracture is identified by CT. There is multilevel facet degenerative change. There is multilevel variable moderate to severe lumbar degenerative disc disease, relative sparing of L3-4. Spinal canal is suboptimally evaluated without myelographic contrast, likely degree of narrowing the far left lateral recess at L4-5 and on the right at L2-3. There is multilevel lumbar neural foramina compromise, moderate narrowing such as on the right at T11-12 through L2-3, moderate to severe narrowing on the left at L4-5 and L5-S1. 1.9 cm transverse focus of somewhat nodular appearing density of the right lower lobe near the base is fairly similar compared with 2016 chest CTA, adjacent fibrotic change present. There is sigmoid diverticulosis. There is calcified plaque of the abdominal aorta and branches. There is 0.4 cm right renal calculus. IMPRESSION: 1. No convincing acute lumbar spine fracture is identified by CT, some variable multilevel mild endplate concavity fairly similar compared with old exams. MRI would more accurately evaluate for marrow edema if there is clinical suspicion for a subtle compression fracture. 2. There is lumbar levoscoliosis. There are multilevel lumbar degenerative disc disease. There is multilevel lumbar neural foramina compromise, also degree of variable lateral recess stenosis. 3. There is small nonobstructive right renal calculus. 4. There is colonic diverticulosis. 5. There is focus of noncalcified somewhat nodular appearing density of the right lower lobe of the lung near the base although similar compared with the 2016 chest CTA. Assessment/Plan Assessment/Plan Impression: Myasthenia gravis is clinically in remission, she can actually develop full strength. Lumbar spondylosis Arthritis General debility, probably just getting too old to live in a mobile home where she has to climb upstairs to get to her porch. Recommendations: Continue current dose of pyridostigmine No treatment for my senior exacerbation such as steroids, plasma exchange, intravenous immunoglobulin Rehabilitation modalities Consider skill nursing unit Considered change in residence. Thank you for the me help the patient's care. VIOLA SAVAGE MD Dec 07, 2019 09:53
--- NOTE | 2019-12-07 09:58 | NUR ---
SW following. Discussed with RN, pt from home alone, cardiac diet, room air. PT/OT ordered. NEEL will continue to follow. Addendum: 12/07/19 at 1603 by SAILAJA SHAIKH PT/OT recommending SNU. NEEL met with pt (no isolation precautions at the time), pt agreeable to SNU, would like [facility] as she has been there before. NEEL faxed referral, COVID-19 pending for placement. Pt choice of vendor form completed. RN notified.
[2019-12-07] MEDS: NYSTATIN 100,000 UNIT/GM TOPICAL CREAM 15GM TUBE. TP SCH ×2 (10:06→20:10)
[2019-12-07] MEDS ORDERED: ACETAMINOPHEN 325 MG TABLET. PO PRN (10:15)
--- NOTE | 2019-12-07 10:36 | PDOC ---
Provider Note Date of Service: DATE: 12/07/19 TIME: 10:35 Provider Note H&P dictated #[id number] Justifications for Admission Other Justification SHY SIMON MD Dec 07, 2019 10:35
--- NOTE | 2019-12-07 11:02 | HP ---
ADMIT DATE: HISTORY OF PRESENT ILLNESS: This 84-year-old female. Yesterday, she was going up some stairs when she was trying to get into her trailer and her left leg gotten weak and she fell down. She has had frequent falls recently and she does not know why she falls. She does only gets weak and then falls. She denies any head trauma. She could not get up and EMS brought in to the hospital. In the hospital, the patient remained weak and continued to have lot of pain and could not ambulate. Because of that, the patient was admitted for further evaluation and management. The patient is also known to have myasthenia gravis and has been on pyridostigmine. In the Emergency Room, WBC count was 11.3 yesterday, 6.9 today; hemoglobin 11. Sodium 136, potassium 4.4, glucose 109, BUN 17, creatinine 0.7. LFTs are unremarkable. Albumin is 3.1 today. Urinalysis is negative. X-rays of the elbow did not show any acute changes, this is the right elbow. X-rays of the right hip showed mild degenerative osteoarthritis. CT scan of lumbar spine shows an osteoarthritis, but no fracture. The patient has multilevel lumbar degenerative disk disease. She has lateral recess foraminal stenosis. REVIEW OF SYSTEMS: The patient denies any dyspnea. She does admit to pain and weakness. She denies any headaches, cold, cough, congestion, chest pains. Other systems reviewed and are negative. The patient is quite afraid to walk and afraid that she will fall again. The patient was admitted to the hospital because of her inability to ambulate and increase in pain. PAST MEDICAL HISTORY: Last admitted here in 04/2018. She has a history of cellulitis of the lower extremities, frequent falls, myasthenia gravis, hypertension with CKD 3, mild coronary artery disease, gastroesophageal reflux disease, anemia, hemorrhoids, cholelithiasis, osteoarthritis and removal of skin cancer. PAST SURGICAL HISTORY: Includes cholecystectomy, cataract removal, tonsillectomy, hemorrhoidectomy, excision of skin cancers. FAMILY HISTORY: Brother had skin cancer and brain cancer. Father had skin cancer. Mother had breast cancer. SOCIAL HISTORY: No history of smoking, alcoholism or drug abuse. She lives alone in a trailer. ALLERGIES: None known any. MEDICATIONS: Reviewed and reconciled. PHYSICAL EXAMINATION: GENERAL: The patient is an elderly female who is alert, oriented x 3 and not in acute distress. The patient is alert, oriented, not in acute distress. She is frail and thin. VITAL SIGNS: Temperature 99, pulse 105 per minute, respirations 18 per minute, blood pressure 132/67. EYES: Pupils reacting to light. Conjunctivae pale. Sclerae muddy. HENT: Unremarkable. NECK: Supple. JVP normal. No thyromegaly. Trachea midline. LUNGS: Decreased breath sounds at bases. CARDIOVASCULAR SYSTEM: S1, S2 regular. ABDOMEN: Soft, nontender, bowel sounds present. EXTREMITIES: No edema, no calf tenderness. The patient has some bruises and previous scars and healing wounds. She has a right elbow skin tear. She has some pain in the left hip and lower back with movement. LABORATORY FINDINGS: As noted earlier. IMPRESSION: 1. Frequent falls with trauma to the lower back and left hip. 2. Myasthenia gravis. 3. Hypertension with chronic kidney disease 3. 4. Gastroesophageal reflux disease. 5. Hyperlipidemia. 6. Osteoarthritis. 7. Anemia of chronic disease. PLAN: Consulted Dr. Saenz because of the myasthenia gravis. He feels that myasthenia gravis is in remission and continue pyridostigmine as given currently 60 mg 3 times a day. Consulted Dr. Martel for rehab evaluation and management because of the frequent falls. He has injected painful left trochanteric bursa in the left sacroiliac joint and also the left knee. The patient is afraid to go back to her home when ready because of her weakness. I will consult [employer] Of [employer], so we can see if we can find a place for her to go to a group home unit. Continue PT, OT and other treatment. SHY SIMON MD DR: CRISTOFER/urbano JOB#: [id number] / [id number]
[2019-12-07] MEDS: ACETAMINOPHEN 325 MG TABLET. PO PRN (15:39)
[2019-12-07] MEDS: CYANOCOBALAMIN (VITAMIN B-12) 1,000 MCG TABLET. PO SCH (20:08)
[2019-12-07] MEDS: SERTRALINE 25 MG TABLET. PO SCH (20:09)
[2019-12-07] MEDS: GABAPENTIN 300 MG CAPSULE. PO SCH (20:09)
[2019-12-08 02:47] VITALS: BP 102/52
[2019-12-08] MEDS: PYRIDOSTIGMINE BROMIDE 60 MG TABLET PO SCH ×3 (06:03→16:30)
[2019-12-08] MEDS: PANTOPRAZOLE 40 MG TABLET.DR. PO SCH (06:03)
[2019-12-08 07:00] VITALS: BP 118/55
[2019-12-08] MEDS: FUROSEMIDE 40 MG TABLET. PO SCH (07:08)
[2019-12-08] MEDS: MIRTAZAPINE 15 MG TABLET PO SCH (07:09)
[2019-12-08] MEDS: PSYLLIUM HUSK (SUGAR FREE) 1 PKT PACKET PO SCH (07:09)
[2019-12-08] MEDS: POTASSIUM CHLORIDE 10 MEQ TABLET.ER. PO SCH (07:09)
[2019-12-08] MEDS: FERROUS SULFATE 325 MG TABLET. PO SCH (07:09)
[2019-12-08] MEDS: NYSTATIN 100,000 UNIT/GM TOPICAL CREAM 15GM TUBE. TP SCH ×2 (07:09→20:58)
[2019-12-08] MEDS: ACETAMINOPHEN 325 MG TABLET. PO PRN (08:29)
--- NOTE | 2019-12-08 08:51 | PDOC ---
PROGRESS NOTES Date of Service DATE: 12/08/19 TIME: 08:48 Subjective Subjective She feels better. Objective Objective Vital Signs Date Time Temp Pulse Resp B/P (MAP) Pulse Ox O2 Delivery O2 Flow Rate FiO2 12/08/19 07:00 97.7 74 17 118/55 (76) 95 Room Air 97.7 Intake and Output 12/08/19 07:00 Intake Total 200 ml Output Total 200 ml Balance 0 ml Intake Oral 200 ml Output Urine Total 200 ml # Voids 3 # Bowel Movements 2 Physical Exam Physical Exam She had pain free ROM of her left hip joint this AM and she got up and walked with roller walker at bed side with bent forward posture,without any limping. Assessment Assessment Problems Medical Problems: (1) Chronic hip pain Status: Acute (2) Fall Status: Acute (3) Skin tear of elbow without complication Status: Acute (4) Unable to ambulate Status: Acute Plan Plan of Shelter with home health or SNF when medically stable. To consider injecting painful lef tknee joint and left hip joint injection under flouroscopy if pain returns. Comment Review of Relevant I have reviewed the following items jerry (where applicable) has been applied. Labs Laboratory Tests Test 12/06/19 15:04 12/06/19 15:33 12/07/19 05:25 12/07/19 13:40 White Blood Count 11.3 x10^3/uL (4.0-11.0) 6.9 x10^3/uL (4.0-11.0) Red Blood Count 3.68 x10^6/uL (3.50-5.40) 3.61 x10^6/uL (3.50-5.40) Hemoglobin 11.0 g/dL (12.0-15.5) 11.0 g/dL (12.0-15.5) Hematocrit 32.7 % (36.0-47.0) 32.5 % (36.0-47.0) Mean Corpuscular Volume 89 fL (79-100) 90 fL (79-100) Mean Corpuscular Hemoglobin 30 pg (25-35) 30 pg (25-35) Mean Corpuscular Hemoglobin Concent 34 g/dL (31-37) 34 g/dL (31-37) Red Cell Distribution Width 13.9 % (11.5-14.5) 13.8 % (11.5-14.5) Platelet Count 222 x10^3/uL (140-400) 230 x10^3/uL (140-400) Neutrophils (%) (Auto) 84 % (31-73) 69 % (31-73) Lymphocytes (%) (Auto) 7 % (24-48) 17 % (24-48) Monocytes (%) (Auto) 9 % (0-9) 13 % (0-9) Eosinophils (%) (Auto) 0 % (0-3) 1 % (0-3) Basophils (%) (Auto) 0 % (0-3) 1 % (0-3) Neutrophils # (Auto) 9.4 x10^3/uL (1.8-7.7) 4.7 x10^3/uL (1.8-7.7) Lymphocytes # (Auto) 0.8 x10^3/uL (1.0-4.8) 1.1 x10^3/uL (1.0-4.8) Monocytes # (Auto) 1.0 x10^3/uL (0.0-1.1) 0.9 x10^3/uL (0.0-1.1) Eosinophils # (Auto) 0.0 x10^3/uL (0.0-0.7) 0.1 x10^3/uL (0.0-0.7) Basophils # (Auto) 0.0 x10^3/uL (0.0-0.2) 0.0 x10^3/uL (0.0-0.2) Prothrombin Time 12.0 SEC (11.7-14.0) Prothromb Time International Ratio 0.9 (0.8-1.1) Sodium Level 136 mmol/L (136-145) 140 mmol/L (136-145) Potassium Level 4.4 mmol/L (3.5-5.1) 4.1 mmol/L (3.5-5.1) Chloride Level 102 mmol/L (98-107) 104 mmol/L (98-107) Carbon Dioxide Level 27 mmol/L (21-32) 29 mmol/L (21-32) Anion Gap 7 (6-14) 7 (6-14) Blood Urea Nitrogen 17 mg/dL (7-20) 13 mg/dL (7-20) Creatinine 0.7 mg/dL (0.6-1.0) 0.6 mg/dL (0.6-1.0) Estimated GFR (Cockcroft-Gault) 79.3 94.8 BUN/Creatinine Ratio 24 (6-20) 22 (6-20) Glucose Level 109 mg/dL (70-99) 83 mg/dL (70-99) Calcium Level 9.3 mg/dL (8.5-10.1) 9.3 mg/dL (8.5-10.1) Total Bilirubin 0.4 mg/dL (0.2-1.0) 0.5 mg/dL (0.2-1.0) Aspartate Amino Transf (AST/SGOT) 21 U/L (15-37) 19 U/L (15-37) Alanine Aminotransferase (ALT/SGPT) 17 U/L (14-59) 17 U/L (14-59) Alkaline Phosphatase 55 U/L (46-116) 60 U/L (46-116) Troponin I Quantitative 0.025 ng/mL (0.000-0.055) Total Protein 6.6 g/dL (6.4-8.2) 6.1 g/dL (6.4-8.2) Albumin 3.6 g/dL (3.4-5.0) 3.1 g/dL (3.4-5.0) Albumin/Globulin Ratio 1.2 (1.0-1.7) 1.0 (1.0-1.7) Urine Collection Type Unknown Urine Color Yellow Urine Clarity Clear Urine pH 6.5 (<5.0-8.0) Urine Specific [place] 1.010 (1.000-1.030) Urine Protein Negative mg/dL (NEG-TRACE) Urine Glucose (UA) Negative mg/dL (NEG) Urine Ketones (Stick) Negative mg/dL (NEG) Urine Blood Moderate (NEG) Urine Nitrite Negative (NEG) Urine Bilirubin Negative (NEG) Urine Urobilinogen Dipstick 0.2 mg/dL (0.2 mg/dL) Urine Leukocyte Esterase Trace (NEG) Urine RBC 6-10 /HPF (0-2) Urine WBC 1-4 /HPF (0-4) Urine Bacteria 0 /HPF (0-FEW) Coronavirus (PCR) Not detected (Not Detected) Laboratory Tests Test 12/07/19 13:40 Coronavirus (PCR) Not detected (Not Detected) Microbiology 12/06/19 Urine Culture - Final, Complete Medications Current Medications Fentanyl Citrate (Fentanyl 2ml Vial) 25 mcg 1X ONCE IVP ; Start 12/06/19 at 14:30; Stop 12/06/19 at 14:31; Status DC Neomycin/ Polymyxin/ Bacitracin (Triple Antibiotic Ointment) 2 pkt 1X ONCE TP Last administered on 12/06/19at 17:50; Start 12/06/19 at 17:00; Stop 12/06/19 at 17:01; Status DC Acetaminophen (Tylenol) 650 mg PRN Q4HRS PRN PO FEVER > 100.3'F; Start 12/06/19 at 17:30; Stop 12/07/19 at 17:29; Status Cancel Acetaminophen (Tylenol) 325 mg PRN QID PRN PO PAIN; Start 12/06/19 at 22:15; Stop 12/07/19 at 10:11; Status DC Cyanocobalamin (Vitamin B-12) 1,000 mcg HS PO Last administered on 12/07/19at 20:08; Start 12/06/19 at 22:30 Ferrous Sulfate (Feosol) 325 mg DAILY PO Last administered on 12/08/19at 07:09; Start 12/07/19 at 09:00 Furosemide (Lasix) 40 mg DAILY PO Last administered on 12/08/19at 07:08; Start 12/07/19 at 09:00 Gabapentin (Neurontin) 300 mg HS PO Last administered on 12/07/19at 20:09; Star t 12/06/19 at 22:30 Mirtazapine (Remeron) 15 mg DAILY PO Last administered on 12/08/19at 07:09; Start 12/07/19 at 09:00 Pyridostigmine [place] (Mestinon) 60 mg TID PO Last administered on 12/07/19at 12:31; Start 12/06/19 at 22:30; Stop 12/07/19 at 17:06; Status DC Sertraline HCl (Zoloft) 25 mg HS PO Last administered on 12/07/19at 20:09; Start 12/06/19 at 22:30 Pantoprazole Sodium (Protonix) 40 mg DAILYAC PO Last administered on 12/08/19at 06:03; Start 12/07/19 at 07:30 Potassium Chloride (Klor-Con) 10 meq DAILYWBKFT PO Last administered on 12/08/19at 07:09; Start 12/07/19 at 08:00 Psyllium Hydrophilic Mucilloid (Metamucil Fiber Packet) 1 pkt DAILY PO Last administered on 12/08/19at 07:09; Start 12/07/19 at 09:00 Acetaminophen (Tylenol) 650 mg PRN QID PRN PO PAIN Last administered on 12/08/19at 08:29; Start 12/06/19 at 22:15 Methylprednisolone Acetate (DEPO-Medrol 40MG VIAL) 40 mg 1X ONCE IM Last administered on 12/07/19at 09:15; Start 12/07/19 at 09:15; Stop 12/07/19 at 09:16; Status DC Methylprednisolone Acetate (DEPO-Medrol 40MG VIAL) 40 mg 1X ONCE INJ Last administered on 12/07/19at 09:15; Start 12/07/19 at 09:15; Stop 12/07/19 at 09:16; Status DC Bupivacaine HCl (Sensorcaine-Mpf 0.25%) 10 ml 1X ONCE IJ Last administered on 12/07/19at 09:15; Start 12/07/19 at 09:15; Stop 12/07/19 at 09:16; Status DC Nystatin (Mycostatin) 1 [place] BID TP Last administered on 12/08/19at 07:09; Start 12/07/19 at 10:00 Acetaminophen (Tylenol) 650 mg PRN Q6HRS PRN PO MILD PAIN / TEMP > 100.3'F; Start 12/07/19 at 10:15 Pyridostigmine [place] (Mestinon) 60 mg TIDBFRMEAL PO Last administered on 12/08/19at 06:03; Start 12/07/19 at 17:15 Active Scripts Active Miralax (Polyethylene Glycol 3350) 119 Gm Powder 17 Gm PO DAILY dissolve in water Tylenol (Acetaminophen) 325 Mg Tablet 1-2 Tab PO QID PRN M[place]inon (Pyridostigmine [place]) 60 Mg Tablet 60 Mg PO TID Potassium Chloride Oral Liquid (Potassium Chloride) 20 Meq/15 Ml Liquid 10 Meq PO DAILY Neurontin (Gabapentin) 300 Mg Capsule 300 Mg PO HS Lasix (Furosemide) 40 Mg Tablet 40 Mg PO DAILY Reported Sertraline Hcl 25 Mg Tablet 25 Mg PO HS Ferrous Sulfate 325 Mg Tablet 1 Tab PO DAILY Vitamin B-12 (Cyanocobalamin (Vitamin B-12)) 1,000 Mcg Tablet 1 Tab PO HS Mirtazapine 15 Mg Tablet 15 Mg PO DAILY Metamucil (Psyllium Husk) 0.52 Gm Capsule 0.52 Gm PO DAILY Omeprazole 40 Mg Capsule. 1 Cap PO DAILY Vitals/I & O Vital Sign - Last 24 Hours 12/07/19 12/07/19 12/07/19 12/07/19 11:00 15:00 19:00 23:00 Temp 98.5 98.6 98.1 97.8 98.5 98.6 98.1 97.8 Pulse 85 85 84 87 Resp 18 16 16 16 B/P (MAP) 121/57 (78) 120/60 (80) 123/51 (75) 103/54 (70) Pulse Ox 95 95 93 94 O2 Delivery Room Air Room Air Room Air Room Air 12/08/19 12/08/19 02:47 07:00 Temp 97.5 97.7 97.5 97.7 Pulse 88 74 Resp 18 17 B/P (MAP) 102/52 (69) 118/55 (76) Pulse Ox 94 95 O2 Delivery Room Air Room Air Intake and Output 12/07/19 12/07/19 12/08/19 15:00 23:00 07:00 Intake Total 100 ml 100 ml Output Total 200 ml Balance 100 ml -100 ml Justifications for Admission Other Justification AUDREY MAYS MD Dec 08, 2019 08:51
--- NOTE | 2019-12-08 10:58 | PDOC ---
PROGRESS NOTES Date of Service: DATE: 12/08/19 TIME: 10:55 Subjective Subjective feels better today Objective Objective Vital Signs Date Time Temp Pulse Resp B/P (MAP) Pulse Ox O2 Delivery O2 Flow Rate FiO2 12/08/19 07:00 97.7 74 17 118/55 (76) 95 Room Air 97.7 Intake and Output 12/08/19 07:00 Intake Total 200 ml Output Total 200 ml Balance 0 ml Intake Oral 200 ml Output Urine Total 200 ml # Voids 3 # Bowel Movements 2 Physical Exam Abdomen: Normal bowel sounds, Soft Heart: Regular rate, Normal S1 Extremities: No clubbing General: Alert HEENT: Atraumatic Lungs: Clear to auscultation MUSCULOSKELETAL: No swelling, Osteoarthritic changes both hands Neck: Supple Neuro: Normal speech Psych/Mental Status: Mental status NL Skin: No breakdown Diagnosis Problem List Problems Medical Problems: (1) Chronic hip pain Status: Acute (2) Fall Status: Acute (3) Skin tear of elbow without complication Status: Acute (4) Unable to ambulate Status: Acute Assessment Assessment Problems Medical Problems: (1) Chronic hip pain Status: Acute (2) Fall Status: Acute (3) Skin tear of elbow without complication Status: Acute (4) Unable to ambulate Status: Acute IMPRESSION: 1. Frequent falls with trauma to the lower back and left hip. 2. Myasthenia gravis. 3. Hypertension with chronic kidney disease 3. 4. Gastroesophageal reflux disease. 5. Hyperlipidemia. 6. Osteoarthritis. 7. Anemia of chronic disease. PLAN: seen by neurology medications adjusted for mysthenia gravis. spoke with dr martel, got injections today. pt/ot/rehab. [facility] tuesday Consulted Dr. Saenz because of the myasthenia gravis. He feels that myasthenia gravis is in remission and continue pyridostigmine as given currently 60 mg 3 times a day. Consulted Dr. Martel for rehab evaluation and management because of the frequent falls. He has injected painful left trochanteric bursa in the left sacroiliac joint and also the left knee. The patient is afraid to go back to her home when ready because of her weakness. I will consult [employer], so we can see if we can find a place for her to go to a correction unit. Continue PT, OT and other treatment. Plan Plan of Care Problems Medical Problems: (1) Chronic hip pain Status: Acute (2) Fall Status: Acute (3) Skin tear of elbow without complication Status: Acute (4) Unable to ambulate Status: Acute Comment Review of Relevant I have reviewed the following items jerry (where applicable) has been applied. Labs Laboratory Tests Test 12/07/19 13:40 Coronavirus (PCR) Not detected (Not Detected) Microbiology 12/06/19 Urine Culture - Final, Complete Medications Current Medications Pyridostigmine [place] (Mestinon) 60 mg TIDBFRMEAL PO Last administered on 12/08/19at 06:03; Start 12/07/19 at 17:15 Vitals/I & O Vital Sign - Last 24 Hours 12/07/19 12/07/19 12/07/19 12/07/19 11:00 15:00 19:00 23:00 Temp 98.5 98.6 98.1 97.8 98.5 98.6 98.1 97.8 Pulse 85 85 84 87 Resp 18 16 16 16 B/P (MAP) 121/57 (78) 120/60 (80) 123/51 (75) 103/54 (70) Pulse Ox 95 95 93 94 O2 Delivery Room Air Room Air Room Air Room Air 12/08/19 12/08/19 02:47 07:00 Temp 97.5 97.7 97.5 97.7 Pulse 88 74 Resp 18 17 B/P (MAP) 102/52 (69) 118/55 (76) Pulse Ox 94 95 O2 Delivery Room Air Room Air Intake and Output 12/07/19 12/07/19 12/08/19 15:00 23:00 07:00 Intake Total 100 ml 100 ml Output Total 200 ml Balance 100 ml -100 ml Justifications for Admission Other Justification EARLE ELLIS MD Dec 08, 2019 10:58
[2019-12-08 11:00] VITALS: BP 127/53
[2019-12-08 15:00] VITALS: BP_SYST 122; BP_SYST 130; BP_DIAS 55; BP_DIAS 68
[2019-12-08 19:15] VITALS: BP 148/77
[2019-12-08] MEDS: SERTRALINE 25 MG TABLET. PO SCH (20:59)
[2019-12-08] MEDS: CYANOCOBALAMIN (VITAMIN B-12) 1,000 MCG TABLET. PO SCH (20:59)
[2019-12-08] MEDS: GABAPENTIN 300 MG CAPSULE. PO SCH (20:59)
[2019-12-08 23:04] VITALS: BP 156/70
[2019-12-09 03:13] VITALS: BP 172/66
[2019-12-09 07:00] VITALS: BP 132/62
[2019-12-09] MEDS: PANTOPRAZOLE 40 MG TABLET.DR. PO SCH (07:22)
[2019-12-09] MEDS: PYRIDOSTIGMINE BROMIDE 60 MG TABLET PO SCH ×3 (07:22→16:35)
[2019-12-09] MEDS: PSYLLIUM HUSK (SUGAR FREE) 1 PKT PACKET PO SCH (08:11)
[2019-12-09] MEDS: FUROSEMIDE 40 MG TABLET. PO SCH (08:11)
[2019-12-09] MEDS: MIRTAZAPINE 15 MG TABLET PO SCH (08:11)
[2019-12-09] MEDS: POTASSIUM CHLORIDE 10 MEQ TABLET.ER. PO SCH (08:11)
[2019-12-09] MEDS: FERROUS SULFATE 325 MG TABLET. PO SCH (08:11)
[2019-12-09 11:00] VITALS: BP 133/68
[2019-12-09] MEDS: NYSTATIN 100,000 UNIT/GM TOPICAL CREAM 15GM TUBE. TP SCH ×2 (11:30→21:06)
--- NOTE | 2019-12-09 12:01 | PDOC ---
PROGRESS NOTES Date of Service: DATE: 12/09/19 TIME: 11:59 Subjective Subjective feels ok Objective Objective Vital Signs Date Time Temp Pulse Resp B/P (MAP) Pulse Ox O2 Delivery O2 Flow Rate FiO2 12/09/19 11:00 97.8 74 18 133/68 (89) 93 Room Air 97.8 Intake and Output 12/09/19 07:00 Intake Total 360 ml Balance 360 ml Intake Oral 360 ml # Voids 4 Physical Exam Abdomen: Normal bowel sounds, Soft Heart: Regular rate, Normal S1 Extremities: No clubbing General: Alert HEENT: Atraumatic Lungs: Clear to auscultation MUSCULOSKELETAL: No swelling, Osteoarthritic changes both hands Neck: Supple Neuro: Normal speech Psych/Mental Status: Mental status NL Skin: No breakdown Diagnosis Problem List Problems Medical Problems: (1) Chronic hip pain Status: Acute (2) Fall Status: Acute (3) Skin tear of elbow without complication Status: Acute (4) Unable to ambulate Status: Acute Assessment Assessment Problems Medical Problems: (1) Chronic hip pain Status: Acute (2) Fall Status: Acute (3) Skin tear of elbow without complication Status: Acute (4) Unable to ambulate Status: Acute IMPRESSION: 1. Frequent falls with trauma to the lower back and left hip. 2. Myasthenia gravis. 3. Hypertension with chronic kidney disease 3. 4. Gastroesophageal reflux disease. 5. Hyperlipidemia. 6. Osteoarthritis. 7. Anemia of chronic disease. PLAN: d/c to SNU tomorrow. seen by neurology medications adjusted for mysthenia gravis. spoke with dr gómez, got injections today. pt/ot/rehab. SN[facility] tuesday urine c/s neg.20,000 not significant Plan Plan of Care Problems Medical Problems: (1) Chronic hip pain Status: Acute (2) Fall Status: Acute (3) Skin tear of elbow without complication Status: Acute (4) Unable to ambulate Status: Acute Comment Review of Relevant I have reviewed the following items jerry (where applicable) has been applied. Labs Microbiology 12/06/19 Urine Culture - Final, Complete Medications Current Medications Enoxaparin Sodium (Lovenox 30mg Syringe) 30 mg Q24H SQ ; Start 12/09/19 at 12:00 Vitals/I & O Vital Sign - Last 24 Hours 12/08/19 12/08/19 12/08/19 12/09/19 15:00 19:15 23:04 03:13 Temp 97.7 97.7 98.1 97.8 97.7 97.7 98.1 97.8 Pulse 78 87 76 65 Resp 18 18 18 18 B/P (MAP) 122/55 (77) 148/77 (100) 156/70 (98) 172/66 (101) Pulse Ox 95 95 95 94 O2 Delivery Room Air Room Air Room Air Room Air 12/09/19 12/09/19 07:00 11:00 Temp 98.3 97.8 98.3 97.8 Pulse 72 74 Resp 16 18 B/P (MAP) 132/62 (85) 133/68 (89) Pulse Ox 94 93 O2 Delivery Room Air Room Air Intake and Output 12/08/19 12/08/19 12/09/19 15:00 23:00 07:00 Intake Total 360 ml Balance 360 ml Justifications for Admission Other Justification EARLE ELLIS MD Dec 09, 2019 12:00
[2019-12-09] MEDS: ENOXAPARIN 30 MG/0.3 ML SYRINGE. SQ SCH (13:00)
[2019-12-09 15:00] VITALS: BP 128/69
[2019-12-09 19:00] VITALS: BP 117/59
[2019-12-09] MEDS: SERTRALINE 25 MG TABLET. PO SCH (21:06)
[2019-12-09] MEDS: CYANOCOBALAMIN (VITAMIN B-12) 1,000 MCG TABLET. PO SCH (21:06)
[2019-12-09] MEDS: GABAPENTIN 300 MG CAPSULE. PO SCH (21:06)
[2019-12-09 23:00] VITALS: BP 121/57
[2019-12-10 03:00] VITALS: BP 133/67
[2019-12-10 06:36] LABS: BASO # 0.1 x10^3/uL (0.0-0.2); BASO % 1 % (0-3); EOS # 0.1 x10^3/uL (0.0-0.7); EOS % 2 % (0-3); HEMATOCRIT 34.3 % (36.0-47.0); HEMOGLOBIN 11.8 g/dL (12.0-15.5); LYMPH # 1.4 x10^3/uL (1.0-4.8); LYMPH % 23 % (24-48); MEAN CORPUSCULAR HEMOGLOBIN 31 pg (25-35); MEAN CORPUSCULAR HGB CONC 34 g/dL (31-37); MEAN CORPUSCULAR VOLUME 89 fL (79-100); MONO # 0.6 x10^3/uL (0.0-1.1); MONO % 11 % (0-9); NEUT # 3.7 x10^3/uL (1.8-7.7); NEUT % 63 % (31-73); PLATELET COUNT 311 x10^3/uL (140-400); RED BLOOD COUNT 3.84 x10^6/uL (3.50-5.40); RED CELL DISTRIBUTION WIDTH 13.8 % (11.5-14.5); WHITE BLOOD COUNT 5.9 x10^3/uL (4.0-11.0)
[2019-12-10 06:50] LABS: CALCIUM 9.2 mg/dL (8.5-10.1); CREATININE 0.7 mg/dL (0.6-1.0); GFR 79.3; POTASSIUM 4.3 mmol/L (3.5-5.1)
[2019-12-10 07:00] VITALS: BP 111/57
[2019-12-10] MEDS: FERROUS SULFATE 325 MG TABLET. PO SCH (08:06)
[2019-12-10] MEDS: PYRIDOSTIGMINE BROMIDE 60 MG TABLET PO SCH ×2 (08:06→11:30)
[2019-12-10] MEDS: MIRTAZAPINE 15 MG TABLET PO SCH (08:06)
[2019-12-10] MEDS: PANTOPRAZOLE 40 MG TABLET.DR. PO SCH (08:06)
[2019-12-10] MEDS: POTASSIUM CHLORIDE 10 MEQ TABLET.ER. PO SCH (08:06)
[2019-12-10] MEDS: PSYLLIUM HUSK (SUGAR FREE) 1 PKT PACKET PO SCH (08:07)
[2019-12-10] MEDS: FUROSEMIDE 40 MG TABLET. PO SCH (08:09)
[2019-12-10] MEDS: NYSTATIN 100,000 UNIT/GM TOPICAL CREAM 15GM TUBE. TP SCH (08:10)
--- NOTE | 2019-12-10 08:31 | PDOC ---
PROGRESS NOTES Date of Service DATE: 12/10/19 TIME: 08:28 Subjective Subjective No new complaints. Objective Objective Vital Signs Date Time Temp Pulse Resp B/P (MAP) Pulse Ox O2 Delivery O2 Flow Rate FiO2 12/10/19 07:00 97.8 69 18 111/57 (75) 95 Room Air 97.8 Intake and Output 12/10/19 07:00 Intake Total 0 ml Balance 0 ml Intake Oral 0 ml # Voids 6 # Bowel Movements 1 Physical Exam Physical Exam She is alert,sitting in bed and eating breakfast and she did walk for 40' with roller walker with physical therapy. Assessment Assessment Problems Medical Problems: (1) Chronic hip pain Status: Acute (2) Fall Status: Acute (3) Skin tear of elbow without complication Status: Acute (4) Unable to ambulate Status: Acute Plan Plan of Care To get her up as tolerated and to SNF when arrangements are completed. Comment Review of Relevant I have reviewed the following items jerry (where applicable) has been applied. Labs Laboratory Tests Test 12/10/19 05:06 12/10/19 05:08 Sodium Level 144 mmol/L (136-145) Potassium Level 4.3 mmol/L (3.5-5.1) Chloride Level 108 mmol/L (98-107) Carbon Dioxide Level 28 mmol/L (21-32) Anion Gap 8 (6-14) Blood Urea Nitrogen 24 mg/dL (7-20) Creatinine 0.7 mg/dL (0.6-1.0) Estimated GFR (Cockcroft-Gault) 79.3 Glucose Level 88 mg/dL (70-99) Calcium Level 9.2 mg/dL (8.5-10.1) White Blood Count 5.9 x10^3/uL (4.0-11.0) Red Blood Count 3.84 x10^6/uL (3.50-5.40) Hemoglobin 11.8 g/dL (12.0-15.5) Hematocrit 34.3 % (36.0-47.0) Mean Corpuscular Volume 89 fL (79-100) Mean Corpuscular Hemoglobin 31 pg (25-35) Mean Corpuscular Hemoglobin Concent 34 g/dL (31-37) Red Cell Distribution Width 13.8 % (11.5-14.5) Platelet Count 311 x10^3/uL (140-400) Neutrophils (%) (Auto) 63 % (31-73) Lymphocytes (%) (Auto) 23 % (24-48) Monocytes (%) (Auto) 11 % (0-9) Eosinophils (%) (Auto) 2 % (0-3) Basophils (%) (Auto) 1 % (0-3) Neutrophils # (Auto) 3.7 x10^3/uL (1.8-7.7) Lymphocytes # (Auto) 1.4 x10^3/uL (1.0-4.8) Monocytes # (Auto) 0.6 x10^3/uL (0.0-1.1) Eosinophils # (Auto) 0.1 x10^3/uL (0.0-0.7) Basophils # (Auto) 0.1 x10^3/uL (0.0-0.2) Laboratory Tests Test 12/10/19 05:06 12/10/19 05:08 Sodium Level 144 mmol/L (136-145) Potassium Level 4.3 mmol/L (3.5-5.1) Chloride Level 108 mmol/L (98-107) Carbon Dioxide Level 28 mmol/L (21-32) Anion Gap 8 (6-14) Blood Urea Nitrogen 24 mg/dL (7-20) Creatinine 0.7 mg/dL (0.6-1.0) Estimated GFR (Cockcroft-Gault) 79.3 Glucose Level 88 mg/dL (70-99) Calcium Level 9.2 mg/dL (8.5-10.1) White Blood Count 5.9 x10^3/uL (4.0-11.0) Red Blood Count 3.84 x10^6/uL (3.50-5.40) Hemoglobin 11.8 g/dL (12.0-15.5) Hematocrit 34.3 % (36.0-47.0) Mean Corpuscular Volume 89 fL (79-100) Mean Corpuscular Hemoglobin 31 pg (25-35) Mean Corpuscular Hemoglobin Concent 34 g/dL (31-37) Red Cell Distribution Width 13.8 % (11.5-14.5) Platelet Count 311 x10^3/uL (140-400) Neutrophils (%) (Auto) 63 % (31-73) Lymphocytes (%) (Auto) 23 % (24-48) Monocytes (%) (Auto) 11 % (0-9) Eosinophils (%) (Auto) 2 % (0-3) Basophils (%) (Auto) 1 % (0-3) Neutrophils # (Auto) 3.7 x10^3/uL (1.8-7.7) Lymphocytes # (Auto) 1.4 x10^3/uL (1.0-4.8) Monocytes # (Auto) 0.6 x10^3/uL (0.0-1.1) Eosinophils # (Auto) 0.1 x10^3/uL (0.0-0.7) Basophils # (Auto) 0.1 x10^3/uL (0.0-0.2) Microbiology 12/06/19 Urine Culture - Final, Complete Medications Current Medications Fentanyl Citrate (Fentanyl 2ml Vial) 25 mcg 1X ONCE IVP ; Start 12/06/19 at 14:30; Stop 12/06/19 at 14:31; Status DC Neomycin/ Polymyxin/ Bacitracin (Triple Antibiotic Ointment) 2 pkt 1X ONCE TP Last administered on 12/06/19at 17:50; Start 12/06/19 at 17:00; Stop 12/06/19 at 17:01; Status DC Acetaminophen (Tylenol) 650 mg PRN Q4HRS PRN PO FEVER > 100.3'F; Start 12/06/19 at 17:30; Stop 12/07/19 at 17:29; Status Cancel Acetaminophen (Tylenol) 325 mg PRN QID PRN PO PAIN; Start 12/06/19 at 22:15; Stop 12/07/19 at 10:11; Status DC Cyanocobalamin (Vitamin B-12) 1,000 mcg HS PO Last administered on 12/09/19at 21:06; Start 12/06/19 at 22:30 Ferrous Sulfate (Feosol) 325 mg DAILY PO Last administered on 12/10/19at 08:06; Start 12/07/19 at 09:00 Furosemide (Lasix) 40 mg DAILY PO Last administered on 12/10/19at 08:09; Start 12/07/19 at 09:00 Gabapentin (Neurontin) 300 mg HS PO Last administered on 12/09/19at 21:06; Start 12/06/19 at 22:30 Mirtazapine (Remeron) 15 mg DAILY PO Last administered on 12/10/19at 08:06; Start 12/07/19 at 09:00 Pyridostigmine [place] (Mestinon) 60 mg TID PO Last administered on 12/07/19at 12:31; Start 12/06/19 at 22:30; Stop 12/07/19 at 17:06; Status DC Sertraline HCl (Zoloft) 25 mg HS PO Last administered on 12/09/19at 21:06; Start 12/06/19 at 22:30 Pantoprazole Sodium (Protonix) 40 mg DAILYAC PO Last administered on 12/10/19at 08:06; Start 12/07/19 at 07:30 Potassium Chloride (Klor-Con) 10 meq DAILYWBKFT PO Last administered on 12/10/19at 08:06; Start 12/07/19 at 08:00 Psyllium Hydrophilic Mucilloid (Metamucil Fiber Packet) 1 pkt DAILY PO Last administered on 12/10/19at 08:07; Start 12/07/19 at 09:00 Acetaminophen (Tylenol) 650 mg PRN QID PRN PO PAIN Last administered on 12/08/19at 08:29; Start 12/06/19 at 22:15; Stop 12/08/19 at 13:44; Status DC Methylprednisolone Acetate (DEPO-Medrol 40MG VIAL) 40 mg 1X ONCE IM Last administered on 12/07/19at 09:15; Start 12/07/19 at 09:15; Stop 12/07/19 at 09:16; Status DC Methylprednisolone Acetate (DEPO-Medrol 40MG VIAL) 40 mg 1X ONCE INJ Last administered on 12/07/19at 09:15; Start 12/07/19 at 09:15; Stop 12/07/19 at 09:16; Status DC Bupivacaine HCl (Sensorcaine-Mpf 0.25%) 10 ml 1X ONCE IJ Last administered on 12/07/19at 09:15; Start 12/07/19 at 09:15; Stop 12/07/19 at 09:16; Status DC Nystatin (Mycostatin) 1 [place] BID TP Last administered on 12/10/19at 08:10; Start 12/07/19 at 10:00 Acetaminophen (Tylenol) 650 mg PRN Q6HRS PRN PO MILD PAIN / TEMP > 100.3'F; Start 12/07/19 at 10:15 Pyridostigmine [place] (Mestinon) 60 mg TIDBFRMEAL PO Last administered on 12/10/19at 08:06; Start 12/07/19 at 17:15 Enoxaparin Sodium (Lovenox 30mg Syringe) 30 mg Q24H SQ Last administered on 12/09/19at 13:00; Start 12/09/19 at 12:00 Active Scripts Active Miralax (Polyethylene Glycol 3350) 119 Gm Powder 17 Gm PO DAILY dissolve in water Tylenol (Acetaminophen) 325 Mg Tablet 1-2 Tab PO QID PRN Mestinon (Pyridostigmine [place]) 60 Mg Tablet 60 Mg PO TID Potassium Chloride Oral Liquid (Potassium Chloride) 20 Meq/15 Ml Liquid 10 Meq PO DAILY Neurontin (Gabapentin) 300 Mg Capsule 300 Mg PO HS Lasix (Furosemide) 40 Mg Tablet 40 Mg PO DAILY Reported Sertraline Hcl 25 Mg Tablet 25 Mg PO HS Ferrous Sulfate 325 Mg Tablet 1 Tab PO DAILY Vitamin B-12 (Cyanocobalamin (Vitamin B-12)) 1,000 Mcg Tablet 1 Tab PO HS Mirtazapine 15 Mg Tablet 15 Mg PO DAILY Metamucil (Psyllium Husk) 0.52 Gm Capsule 0.52 Gm PO DAILY Omeprazole 40 Mg Capsule. 1 Cap PO DAILY Vitals/I & O Vital Sign - Last 24 Hours 12/09/19 12/09/19 12/09/19 12/09/19 11:00 15:00 19:00 23:00 Temp 97.8 98.4 98.4 98.3 97.8 98.4 98.4 98.3 Pulse 74 78 86 76 Resp 18 16 19 18 B/P (MAP) 133/68 (89) 128/69 (88) 117/59 (78) 121/57 (78) Pulse Ox 93 94 93 95 O2 Delivery Room Air Room Air Room Air Room Air 12/10/19 12/10/19 03:00 07:00 Temp 98.0 97.8 98.0 97.8 Pulse 73 69 Resp 18 18 B/P (MAP) 133/67 (89) 111/57 (75) Pulse Ox 94 95 O2 Delivery Room Air Room Air Intake and Output 12/09/19 12/09/19 12/10/19 15:00 23:00 07:00 Intake Total 0 ml 0 ml Balance 0 ml 0 ml Justifications for Admission Other Justification AUDREY MAYS MD Dec 10, 2019 08:31
--- NOTE | 2019-12-10 09:00 | PDOC ---
PROGRESS NOTES Date of Service DATE: 12/10/19 TIME: 08:55 Assessment Problems Medical Problems: (1) Chronic hip pain Status: Acute (2) Fall Status: Acute (3) Skin tear of elbow without complication Status: Acute (4) Unable to ambulate Status: Acute Myasthenia gravis is clinically in remission, she can actually develop full strength. Lumbar spondylosis Arthritis General debility Plan Continue current dose of pyridostigmine [facility] Subjective none Objective Vital Signs Date Time Temp Pulse Resp B/P (MAP) Pulse Ox O2 Delivery O2 Flow Rate FiO2 12/10/19 07:00 97.8 69 18 111/57 (75) 95 Room Air 97.8 Intake and Output 12/10/19 07:00 Intake Total 0 ml Balance 0 ml Intake Oral 0 ml # Voids 6 # Bowel Movements 1 PHYSICAL EXAM Alert. Oriented to time, place and person. PERRL. EOMI. CN: no focal findings. Muscle tone: normal. Muscle strength: can develop 5/5 DTR: 1+ Plantar reflex: flexor Gait: not examined in bed. Sensory exam: no abnormal findings. No cerebellar signs elicited. Review of Relevant I have reviewed the following items jerry (where applicable) has been applied. Labs Laboratory Tests Test 12/10/19 05:06 12/10/19 05:08 Sodium Level 144 mmol/L (136-145) Potassium Level 4.3 mmol/L (3.5-5.1) Chloride Level 108 mmol/L (98-107) Carbon Dioxide Level 28 mmol/L (21-32) Anion Gap 8 (6-14) Blood Urea Nitrogen 24 mg/dL (7-20) Creatinine 0.7 mg/dL (0.6-1.0) Estimated GFR (Cockcroft-Gault) 79.3 Glucose Level 88 mg/dL (70-99) Calcium Level 9.2 mg/dL (8.5-10.1) White Blood Count 5.9 x10^3/uL (4.0-11.0) Red Blood Count 3.84 x10^6/uL (3.50-5.40) Hemoglobin 11.8 g/dL (12.0-15.5) Hematocrit 34.3 % (36.0-47.0) Mean Corpuscular Volume 89 fL (79-100) Mean Corpuscular Hemoglobin 31 pg (25-35) Mean Corpuscular Hemoglobin Concent 34 g/dL (31-37) Red Cell Distribution Width 13.8 % (11.5-14.5) Platelet Count 311 x10^3/uL (140-400) Neutrophils (%) (Auto) 63 % (31-73) Lymphocytes (%) (Auto) 23 % (24-48) Monocytes (%) (Auto) 11 % (0-9) Eosinophils (%) (Auto) 2 % (0-3) Basophils (%) (Auto) 1 % (0-3) Neutrophils # (Auto) 3.7 x10^3/uL (1.8-7.7) Lymphocytes # (Auto) 1.4 x10^3/uL (1.0-4.8) Monocytes # (Auto) 0.6 x10^3/uL (0.0-1.1) Eosinophils # (Auto) 0.1 x10^3/uL (0.0-0.7) Basophils # (Auto) 0.1 x10^3/uL (0.0-0.2) Laboratory Tests Test 12/10/19 05:06 12/10/19 05:08 Sodium Level 144 mmol/L (136-145) Potassium Level 4.3 mmol/L (3.5-5.1) Chloride Level 108 mmol/L (98-107) Carbon Dioxide Level 28 mmol/L (21-32) Anion Gap 8 (6-14) Blood Urea Nitrogen 24 mg/dL (7-20) Creatinine 0.7 mg/dL (0.6-1.0) Estimated GFR (Cockcroft-Gault) 79.3 Glucose Level 88 mg/dL (70-99) Calcium Level 9.2 mg/dL (8.5-10.1) White Blood Count 5.9 x10^3/uL (4.0-11.0) Red Blood Count 3.84 x10^6/uL (3.50-5.40) Hemoglobin 11.8 g/dL (12.0-15.5) Hematocrit 34.3 % (36.0-47.0) Mean Corpuscular Volume 89 fL (79-100) Mean Corpuscular Hemoglobin 31 pg (25-35) Mean Corpuscular Hemoglobin Concent 34 g/dL (31-37) Red Cell Distribution Width 13.8 % (11.5-14.5) Platelet Count 311 x10^3/uL (140-400) Neutrophils (%) (Auto) 63 % (31-73) Lymphocytes (%) (Auto) 23 % (24-48) Monocytes (%) (Auto) 11 % (0-9) Eosinophils (%) (Auto) 2 % (0-3) Basophils (%) (Auto) 1 % (0-3) Neutrophils # (Auto) 3.7 x10^3/uL (1.8-7.7) Lymphocytes # (Auto) 1.4 x10^3/uL (1.0-4.8) Monocytes # (Auto) 0.6 x10^3/uL (0.0-1.1) Eosinophils # (Auto) 0.1 x10^3/uL (0.0-0.7) Basophils # (Auto) 0.1 x10^3/uL (0.0-0.2) Microbiology 12/06/19 Urine Culture - Final, Complete Medications Current Medications Fentanyl Citrate (Fentanyl 2ml Vial) 25 mcg 1X ONCE IVP ; Start 12/06/19 at 14:30; Stop 12/06/19 at 14:31; Status DC Neomycin/ Polymyxin/ Bacitracin (Triple Antibiotic Ointment) 2 pkt 1X ONCE TP Last administered on 12/06/19at 17:50; Start 12/06/19 at 17:00; Stop 12/06/19 at 17:01; Status DC Acetaminophen (Tylenol) 650 mg PRN Q4HRS PRN PO FEVER > 100.3'F; Start 12/06/19 at 17:30; Stop 12/07/19 at 17:29; Status Cancel Acetaminophen (Tylenol) 325 mg PRN QID PRN PO PAIN; Start 12/06/19 at 22:15; Stop 12/07/19 at 10:11; Status DC Cyanocobalamin (Vitamin B-12) 1,000 mcg HS PO Last administered on 12/09/19at 21:06; Start 12/06/19 at 22:30 Ferrous Sulfate (Feosol) 325 mg DAILY PO Last administered on 12/10/19at 08:06; Start 12/07/19 at 09:00 Furosemide (Lasix) 40 mg DAILY PO Last administered on 12/10/19 08:09; Start 12/07/19 at 09:00 Gabapentin (Neurontin) 300 mg HS PO Last administered on 12/09/19 21:06; Start 12/06/19 at 22:30 Mirtazapine (Remeron) 15 mg DAILY PO Last administered on 12/10/19 08:06; Start 12/07/19 at 09:00 Pyridostigmine [place] (Mestinon) 60 mg TID PO Last administered on 12/07/19at 12:31; Start 12/06/19 at 22:30; Stop 12/07/19 at 17:06; Status DC Sertraline HCl (Zoloft) 25 mg HS PO Last administered on 12/09/19at 21:06; S tart 12/06/19 at 22:30 Pantoprazole Sodium (Protonix) 40 mg DAILYAC PO Last administered on 12/10/19 08:06; Start 12/07/19 at 07:30 Potassium Chloride (Klor-Con) 10 meq DAILYWBKFT PO Last administered on 12/10/19at 08:06; Start 12/07/19 at 08:00 Psyllium Hydrophilic Mucilloid (Metamucil Fiber Packet) 1 pkt DAILY PO Last administered on 12/10/19 08:07; Start 12/07/19 at 09:00 Acetaminophen (Tylenol) 650 mg PRN QID PRN PO PAIN Last administered on 12/08/19at 08:29; Start 12/06/19 at 22:15; Stop 12/08/19 at 13:44; Status DC Methylprednisolone Acetate (DEPO-Medrol 40MG VIAL) 40 mg 1X ONCE IM Last administered on 12/07/19 09:15; Start 12/07/19 at 09:15; Stop 12/07/19 at 09:16; Status DC Methylprednisolone Acetate (DEPO-Medrol 40MG VIAL) 40 mg 1X ONCE INJ Last administered on 12/07/19 09:15; Start 12/07/19 at 09:15; Stop 12/07/19 at 09:16; Status DC Bupivacaine HCl (Sensorcaine-Mpf 0.25%) 10 ml 1X ONCE IJ Last administered on 12/07/19at 09:15; Start 12/07/19 at 09:15; Stop 12/07/19 at 09:16; Status DC Nystatin (Mycostatin) 1 [place]nee BID TP Last administered on 12/10/19at 08:10; Start 12/07/19 at 10:00 Acetaminophen (Tylenol) 650 mg PRN Q6HRS PRN PO MILD PAIN / TEMP > 100.3'F; Start 12/07/19 at 10:15 Pyridostigmine [place] (Mestinon) 60 mg TIDBFRMEAL PO Last administered on 12/10/19at 08:06; Start 12/07/19 at 17:15 Enoxaparin Sodium (Lovenox 30mg Syringe) 30 mg Q24H SQ Last administered on 12/09/19at 13:00; Start 12/09/19 at 12:00 Active Scripts Active Miralax (Polyethylene Glycol 3350) 119 Gm Powder 17 Gm PO DAILY dissolve in water Tylenol (Acetaminophen) 325 Mg Tablet 1-2 Tab PO QID PRN Mestinon (Pyridostigmine [place]) 60 Mg Tablet 60 Mg PO TID Potassium Chloride Oral Liquid (Potassium Chloride) 20 Meq/15 Ml Liquid 10 Meq PO DAILY Neurontin (Gabapentin) 300 Mg Capsule 300 Mg PO HS Lasix (Furosemide) 40 Mg Tablet 40 Mg PO DAILY Reported Sertraline Hcl 25 Mg Tablet 25 Mg PO HS Ferrous Sulfate 325 Mg Tablet 1 Tab PO DAILY Vitamin B-12 (Cyanocobalamin (Vitamin B-12)) 1,000 Mcg Tablet 1 Tab PO HS Mirtazapine 15 Mg Tablet 15 Mg PO DAILY Metamucil (Psyllium Husk) 0.52 Gm Capsule 0.52 Gm PO DAILY Omeprazole 40 Mg Capsule. 1 Cap PO DAILY Vitals/I & O Vital Sign - Last 24 Hours 12/09/19 12/09/19 12/09/19 12/09/19 11:00 15:00 19:00 23:00 Temp 97.8 98.4 98.4 98.3 97.8 98.4 98.4 98.3 Pulse 74 78 86 76 Resp 18 16 18 B/P (MAP) 133/68 (89) 128/69 (88) 117/59 (78) 121/57 (78) Pulse Ox 93 94 93 95 O2 Delivery Room Air Room Air Room Air Room Air 12/10/19 12/10/19 03:00 07:00 Temp 98.0 97.8 98.0 97.8 Pulse 73 69 Resp 18 18 B/P (MAP) 133/67 (89) 111/57 (75) Pulse Ox 94 95 O2 Delivery Room Air Room Air Intake and Output 12/09/19 12/09/19 12/10/19 15:00 23:00 07:00 Intake Total 0 ml 0 ml Balance 0 ml 0 ml Justicifation of Admission Dx: Justifications for Admission: Justification of Admission Dx: Yes VIOLA SAVAGE MD Dec 10, 2019 09:00
--- NOTE | 2019-12-10 09:13 | NUR ---
SW following. Discussed with RN, plans for pt to discharge to [facility] for SNU today. Awaiting discharge orders. Addendum: 12/10/19 at 1031 by SAILAJA GAY SW Discharge orders faxed to [facility]. Transportation set up for [address] [facility] transport. RN notified. No further SW needs.
[2019-12-10] MEDS ORDERED: NYST15CR TP (09:39)
--- NOTE | 2019-12-10 09:43 | SNU/HH DC ---
DISCHARGE ORDERS DISCHARGE INFORMATION: FINAL DIAGNOSIS Problems Medical Problems: (1) Chronic hip pain Status: Acute (2) Fall Status: Acute (3) Skin tear of elbow without complication Status: Acute (4) Unable to ambulate Status: Acute CONDITION ON DISCHARGE: Stable ALF: SNF STAY <30 DAYS: Yes POST DISCHARGE ORDERS: ACTIVITY ORDERS: Resume previous activity, Activity as tolerated (Walk with walker) WEIGHT BEARING STATUS: As tolerated DIET AFTER DISCHARGE: Cardiac CHECKS AFTER DISCHARGE: CHECKS AFTER DISCHARGE: Check blood press - daily FOLLOW-UP: LAB ORDERS FOR FOLLOW-UP: CBC, CMP in a.m. and then once a week TREATMENT/EQUIPMENT ORDERS: ADAPTIVE EQUIPMENT NEEDED: Walker Physical Therapy For: Evalulation/Treatment Occupational Therapy For: Evaluation/Treatment DISCHARGE MEDICATIONS: Home Meds Active Scripts Nystatin (NYSTATIN) 15 Gm Cream..g., 1 ESTEBAN TP BID for fungal infection, #1 EACH Topically twice a day Prov:SHY SIMON MD 12/10/19 Polyethylene Glycol 3350 (MIRALAX) 119 Gm Powder, 17 GM PO DAILY for constipation, #255 GM 0 Refills dissolve in water Prov:SEAMUS WESTFALL MD 05/05/19 Acetaminophen (TYLENOL) 325 Mg Tablet, 1-2 TAB PO QID PRN for PAIN, #60 TAB 2 Refills Prov:JENSEN ALEMAN APRN 05/15/14 Pyridostigmine [place] (MESTINON) 60 Mg Tablet, 60 MG PO TID, #90 TAB Prov:JENSEN ALEMAN APRN 01/07/14 Potassium Chloride (POTASSIUM CHLORIDE ORAL LIQUID) 20 Meq/15 Ml Liquid, 10 MEQ PO DAILY, #120 Prov:JENSEN ALEMAN APRN 01/07/14 Gabapentin (NEURONTIN ) 300 Mg Capsule, 300 MG PO HS, #30 CAP Prov:JENSEN ALEMAN APRN 01/07/14 Furosemide (LASIX) 40 Mg Tablet, 40 MG PO DAILY, #30 TAB Prov:JENSEN ALEMAN APRN 01/07/14 Reported Medications Sertraline Hcl (SERTRALINE HCL) 25 Mg Tablet, 25 MG PO HS for ANTI-DEPRESSANT, TAB 0 Refills 05/05/18 Ferrous Sulfate (FERROUS SULFATE) 325 Mg Tablet, 1 TAB PO DAILY for supplement, #30 TAB 3 Refills 05/05/18 Cyanocobalamin (Vitamin B-12) (VITAMIN B-12) 1,000 Mcg Tablet, 1 TAB PO HS for supplement, #30 TAB 2 Refills 05/05/18 Mirtazapine (MIRTAZAPINE) 15 Mg Tablet, 15 MG PO DAILY, TAB 05/06/14 Psyllium Husk (METAMUCIL) 0.52 Gm Capsule, 0.52 GM PO DAILY 05/06/14 Omeprazole (OMEPRAZOLE) 40 Mg Capsule.dr, 1 CAP PO DAILY, #30 CAP 3 Refills 05/06/14 SHY SIMON MD Dec 10, 2019 09:43
--- NOTE | 2019-12-10 09:45 | PDOC3 ---
IM DISCHARGE SUMMARY Date of Admission Date of Admission Date of Admission: Dec 06, 2019 at 17:18 Date of Discharge Date of Discharge December 10, 2019 Primary Diagnosis Primary Diagnosis 1. Frequent falls with trauma to the lower back and left hip. 2. Myasthenia gravis. 3. Hypertension with chronic kidney disease 3. 4. Gastroesophageal reflux disease. 5. Hyperlipidemia. 6. Osteoarthritis. 7. Anemia of chronic disease. Consults Consults Bobo Saenz MD; Negar Martel MD Labs Labs Laboratory Tests Test 12/10/19 05:06 12/10/19 05:08 Sodium Level 144 mmol/L (136-145) Potassium Level 4.3 mmol/L (3.5-5.1) Chloride Level 108 mmol/L (98-107) H Carbon Dioxide Level 28 mmol/L (21-32) Anion Gap 8 (6-14) Blood Urea Nitrogen 24 mg/dL (7-20) H Creatinine 0.7 mg/dL (0.6-1.0) Estimated GFR (Cockcroft-Gault) 79.3 Glucose Level 88 mg/dL (70-99) Calcium Level 9.2 mg/dL (8.5-10.1) White Blood Count 5.9 x10^3/uL (4.0-11.0) Red Blood Count 3.84 x10^6/uL (3.50-5.40) Hemoglobin 11.8 g/dL (12.0-15.5) L Hematocrit 34.3 % (36.0-47.0) L Mean Corpuscular Volume 89 fL (79-100) Mean Corpuscular Hemoglobin 31 pg (25-35) Mean Corpuscular Hemoglobin Concent 34 g/dL (31-37) Red Cell Distribution Width 13.8 % (11.5-14.5) Platelet Count 311 x10^3/uL (140-400) Neutrophils (%) (Auto) 63 % (31-73) Lymphocytes (%) (Auto) 23 % (24-48) L Monocytes (%) (Auto) 11 % (0-9) H Eosinophils (%) (Auto) 2 % (0-3) Basophils (%) (Auto) 1 % (0-3) Neutrophils # (Auto) 3.7 x10^3/uL (1.8-7.7) Lymphocytes # (Auto) 1.4 x10^3/uL (1.0-4.8) Monocytes # (Auto) 0.6 x10^3/uL (0.0-1.1) Eosinophils # (Auto) 0.1 x10^3/uL (0.0-0.7) Basophils # (Auto) 0.1 x10^3/uL (0.0-0.2) Laboratory Tests 12/10/19 05:08 Laboratory Tests 12/10/19 05:06 Brief hospital course Brief hospital course This 84-year-old female. Yesterday, she was going up some stairs when she was trying to get into her trailer and her left leg gotten weak and she fell down. She has had frequent falls recently and she does not know why she falls. She does only gets weak and then falls. She denies any head trauma. She could not get up and EMS brought in to the hospital. In the hospital, the patient remained weak and continued to have lot of pain and could not ambulate. Because of that, the patient was admitted for further evaluation and management. The patient is also known to have myasthenia gravis and has been on pyridostigmine. In the Emergency Room, WBC count was 11.3 yesterday, 6.9 today; hemoglobin 11. Sodium 136, potassium 4.4, glucose 109, BUN 17, creatinine 0.7. LFTs are unremarkable. Albumin is 3.1 today. Urinalysis is negative. X-rays of the elbow did not show any acute changes, this is the right elbow. X-rays of the right hip showed mild degenerative osteoarthritis. CT scan of lumbar spine shows an osteoarthritis, but no fracture. The patient has multilevel lumbar degenerative disk disease. She has lateral recess foraminal stenosis. For more details regarding the past history, family history, social history, surgical history and other details, please refer to History and Physical. Consulted Dr. Saenz because of the myasthenia gravis. He feels that myasthenia gravis is in remission and continue pyridostigmine as given currently 60 mg 3 times a day. Consulted Dr. Martel for rehab evaluation and management because of the frequent falls. He has injected painful left trochanteric bursa in the left sacroiliac joint and also the left knee. The patient is afraid to go back to her home when ready because of her weakness. I will consult Horse Racing Manager, so we can see if we can find a place for her to go to a longterm unit. Continue PT, OT and other treatment. Clinically improving slowly. Transfer to longterm unit. Medications Current Medications Medications (Trade) Dose Ordered Sig/Nathalie Route PRN Reason Start Time Stop Time Status Last Admin Dose Admin Enoxaparin Sodium (Lovenox 30mg Syringe) 30 mg Q24H SQ 12/09/19 12:00 12/09/19 13:00 Medications reviewed and reconciled for discharge. Allergy Allergies Coded Allergies Type Severity Reaction Last Updated Verified No Known Drug Allergies 09/15/15 No Follow up in 5 days. DISPOSITION: Intermediate facility Comments Discharge Management - 35 minutes. For other details please refer to discharge instructions Justicifation of Admission Dx: Justifications for Admission: Justification of Admission Dx: Yes SHY SIMON MD Dec 10, 2019 09:45
[2019-12-10 11:00] VITALS: BP 109/53
[2019-12-10] MEDS: ENOXAPARIN 30 MG/0.3 ML SYRINGE. SQ SCH (11:45)
--- NOTE | 2019-12-10 14:02 | NUR ---
Discharge Note: SHEILA DAVIS Discharge instructions and discharge home medications reviewed with Megan at [facility] and a copy given. All questions have been answered and understanding verbalized. The following instructions and handouts were given: f/u with pcp within two weeks. Discontinued lines and drains: Peripheral IV intact. Patient discharged to Longterm Facility with [facility] transport via Wheelchair. Pt glasses, shirt, pants, socks and shoes on her person when leaving.
== END 2019-12-10 14:10 | DRG 57 ==
LOC: ER 13:16 → 4 NORTH 17:18
PROVIDERS: ADMIT Internal Medicine; ATTEND Internal Medicine
PROC: 3E0U33Z Introduction of Anti-inflammatory into Joints, Percutaneous Approach (ICD-10-PCS; principal; 2019-12-07)
PROC: 3E0U3BZ Introduction of Anesthetic Agent into Joints, Percutaneous Approach (ICD-10-PCS; 2019-12-07)
DX: G70.00 Myasthenia gravis without (acute) exacerbation (principal); D63.8 Anemia in other chronic diseases classified elsewhere; D50.0 Iron deficiency anemia secondary to blood loss (chronic); E78.5 Hyperlipidemia, unspecified; F32.9 Major depressive disorder, single episode, unspecified; G89.29 Other chronic pain; I12.9 Hypertensive chronic kidney disease with stage 1 through stage 4 chronic kidney disease, or unspecified chronic kidney disease; I25.10 Atherosclerotic heart disease of native coronary artery without angina pectoris; K21.9 Gastro-esophageal reflux disease without esophagitis; K57.30 Diverticulosis of large intestine without perforation or abscess without bleeding; M16.11 Unilateral primary osteoarthritis, right hip; M41.9 Scoliosis, unspecified; M47.816 Spondylosis without myelopathy or radiculopathy, lumbar region; M48.061 Spinal stenosis, lumbar region without neurogenic claudication; M51.36 Other intervertebral disc degeneration, lumbar region; M54.30 Sciatica, unspecified side; M70.61 Trochanteric bursitis, right hip; M70.62 Trochanteric bursitis, left hip; N18.9 Chronic kidney disease, unspecified; N20.0 Calculus of kidney; R29.6 Repeated falls; S51.011A Laceration without foreign body of right elbow, initial encounter; Z80.3 Family history of malignant neoplasm of breast; Z80.8 Family history of malignant neoplasm of other organs or systems; Z83.3 Family history of diabetes mellitus; Z85.828 Personal history of other malignant neoplasm of skin; W18.39XA Other fall on same level, initial encounter; Y93.89 Activity, other specified; Y92.89 Other specified places as the place of occurrence of the external cause; Y99.8 Other external cause status; Z20.828 Contact with and (suspected) exposure to other viral communicable diseases; Z60.2 Problems related to living alone
CPT/HCPCS: 36415; 72131; 73080; 73521; 80048; 80053; 81001; 84484; 85025; 85610; 87086; 93005; 99285; J1030; J1650; J3490; 97110-GP; 97116-GP; 97530-GO; G0378; U0003-CS

== ENCOUNTER → 2020-02-18 | Outpatient (CLI) | payer MEDICARE, BC ==
[~2020-02-18] MED LIST changes: +NYST15CR TP
--- NOTE | 2020-02-18 15:42 | CARD ---
MR#: [id number] Date of Study: 02/18/2020 Ordering Physician: DREW MCLEAN, Referring Physician: DREW MCLEAN, Tech: Ernestina Nguyen APPROVED REPORT EXAM: Two-dimensional and M-mode echocardiogram with Doppler and color Doppler. Other Information Quality : AverageHR: 98bpm INDICATION Hypertension/HCVD Murmur 2D DIMENSIONS RVDd2.5 (2.9-3.5cm)Left Atrium(2D)3.4 (1.6-4.0cm) IVSd1.2 (0.7-1.1cm)Aortic Root(2D)2.9 (2.0-3.7cm) LVDd5.1 (3.9-5.9cm)LVOT Diameter1.9 (1.8-2.4cm) PWd1.2 (0.7-1.1cm)LVDs3.5 (2.5-4.0cm) FS (%) 31.7 %SV72.7 ml LVEF(%)59.4 (>50%) Aortic Valve AoV Peak Leandro.280.5cm/sAoV VTI53.8cm AO Peak GR.31.5mmHgLVOT Peak Leandro.151.2cm/s LVOT VTI 36.12cmAO Mean GR.15mmHg DANYEL (VMAX)1.11aj5FIN (VTI)1.89cm2 Mitral Valve MV E Cczrsxgw499.4cm/sMV E Peak Gr.238mmHg MV A Vbjalqbh523.7cm/sMV E Mean Gr.6mmHg E/A Ratio0.9 TDI E/Lateral E'26.3E/Medial E'20.3 Pulmonary Valve PV Peak Izppjeed06.0cm/sPV Peak Grad.4mmHg Tricuspid Valve TR P. Rvulcdds222xo/sRAP [id number] TR Peak Gr.68hhNvBCOI31mlGn LEFT VENTRICLE The left ventricle is normal size. There is moderate concentric left ventricular hypertrophy. The lef t ventricular systolic function is normal and the ejection fraction is within normal range. The Eject ion Fraction is 60-65%. There is normal LV segmental wall motion. Transmitral Doppler flow pattern is Grade I-abnormal relaxation pattern. RIGHT VENTRICLE The right ventricle is normal size. There is normal right ventricular wall thickness. The right ventr icular systolic function is normal. ATRIA The left atrium size is normal. The right atrium size is normal. The interatrial septum is intact wit h no evidence for an atrial septal defect or patent foramen ovale as noted on 2-D or Doppler imaging. AORTIC VALVE The aortic valve is mildly thickened. The indication is for hypertension and the septal thickening is suggestive of obstructive and turbulent flow. Doppler and Color Flow revealed mild aortic regurgitat ion. There is no significant aortic valvular stenosis. Calculated aortic valve area is 1.51 cm2 with maximum pressure gradient of 34 mmHg and mean pressure gradient of 16 mmHg. MITRAL VALVE The mitral valve is thickened but opens well. Mitral annular calcification is moderate, with posterio r leaflet restriction. There is no evidence of mitral valve prolapse. There is moderate mitral valve stenosis with a mean pressure gradient of 6.3 mmHg. Doppler and Color-flow revealed moderate to sever e eccentric mitral regurgitation. TRICUSPID VALVE The tricuspid valve is normal in structure and function. Doppler and Color Flow revealed trace tricus pid regurgitation with an estimated PAP of 36 mmHg. There is no tricuspid valve stenosis. PULMONIC VALVE The pulmonic valve is not well visualized. Doppler and Color Flow revealed trace pulmonic valvular re gurgitation. There is no pulmonic valvular stenosis. GREAT VESSELS The aortic root is normal in size. The IVC is normal in size and collapses >50% with inspiration. PERICARDIAL EFFUSION There is no evidence of significant pericardial effusion. Critical Notification Critical Value: No <Conclusion> There is moderate concentric left ventricular hypertrophy. The left ventricular systolic function is normal and the ejection fraction is within normal range. Th e Ejection Fraction is 60-65%. There is normal LV segmental wall motion. Doppler and Color Flow revealed mild aortic regurgitation. Doppler and Color-flow revealed moderate to severe eccentric mitral regurgitation. Signed by : Drew Mclean, Electronically Approved : 02/18/2020 15:42:32
== END ==
LOC: ECHO 11:05
PROVIDERS: ATTEND Internal Medicine Cardiovascular Disease
DX: I08.0 Rheumatic disorders of both mitral and aortic valves (principal); I11.9 Hypertensive heart disease without heart failure
CPT/HCPCS: 93306

== ENCOUNTER 2020-03-16 15:01 | Inpatient (IN) | payer MEDICARE, BC ==
[~2020-03-16] VITALS: Ht 157.5 cm; Wt 48.7 kg
[~2020-03-16 15:01] MED LIST changes: +AMIODARONE 150 MG/3 ML VIAL ONE; +CALCIUM CHLORIDE 1,000 MG/10 ML DISP.SYRIN ONE; +DOPamine 400MG/250ML PREMIX 400 MG/250 ML BAG IV ONE; +EPINEPHrine 1 MG/ML VIAL ONE; +MAGNESIUM SULFATE PREMIX 1 GM/100 ML BAG. IV ONE
[2020-03-16] MEDS ORDERED: dilTIAZem IV PUSH 25 MG/5 ML VIAL IVP ONE ×2 (15:15→15:45)
[2020-03-16 15:20] LABS: BASO # 0.1 x10^3/uL (0.0-0.2); BASO % 1 % (0-3); EOS % 0 % (0-3); HEMATOCRIT 30.2 % (36.0-47.0); HEMOGLOBIN 10.1 g/dL (12.0-15.5); LYMPH # 0.9 x10^3/uL (1.0-4.8); LYMPH % 9 % (24-48); MEAN CORPUSCULAR HEMOGLOBIN 29 pg (25-35); MEAN CORPUSCULAR HGB CONC 34 g/dL (31-37); MEAN CORPUSCULAR VOLUME 87 fL (79-100); MONO # 0.9 x10^3/uL (0.0-1.1); MONO % 9 % (0-9); NEUT # 8.1 x10^3/uL (1.8-7.7); NEUT % 80 % (31-73); PLATELET COUNT 286 x10^3/uL (140-400); RED BLOOD COUNT 3.46 x10^6/uL (3.50-5.40); RED CELL DISTRIBUTION WIDTH 13.7 % (11.5-14.5); WHITE BLOOD COUNT 10.1 x10^3/uL (4.0-11.0)
[2020-03-16 15:35] LABS: CALCIUM 10.2 mg/dL (8.5-10.1); CREATININE 1.1 mg/dL (0.6-1.0); GFR 47.1
[2020-03-16] MEDS ORDERED: DILTIAZEM HCL 125 MG in IV NORMAL SALINE 100ML 100 ML IV ONE (15:45)
[2020-03-16] MEDS ORDERED: IV NORMAL SALINE 500ML BAG 500 ML IV ONE (16:00)
--- NOTE | 2020-03-16 16:12 | ED.ADGEN ---
Past Medical History Past Medical History: Depression, Hypertension, Other Additional Past Medical Histor: myasthenia gravis Past Surgical History: Cholecystectomy, Tonsillectomy Smoking Status: Never Smoker Alcohol Use: None Drug Use: None General Adult EDM: Chief Complaint: DIZZY/LIGHT HEADED HPI: HPI: Patient is an 84-year-old female who presents to the emergency room complaining of just not feeling well. Patient states that she has felt weak and tired since this morning. She denies any shortness of breath, chest pain, palpitations, nausea, vomiting, diarrhea. She did recently get diagnosed with a murmur. She has never had a cardiac arrhythmia previously. Review of Systems: Review of Systems: Complete ROS is negative unless otherwise documented in HPI Current Medications: Current Medications Medications (Trade) Dose Ordered Sig/Nathalie Start Time Stop Time Status Last Admin Dose Admin Diltiazem HCl (Cardizem Iv Push) 20 mg 1X ONCE 03/16/20 15:45 03/16/20 15:46 DC 03/16/20 15:52 20 MG Diltiazem HCl 125 mg/Sodium Chloride 125 ml @ 5 mls/hr 1X ONCE 03/16/20 15:45 03/17/20 16:44 03/16/20 15:56 5 MLS/HR Sodium Chloride 500 ml @ 500 mls/hr 1X ONCE 03/16/20 16:00 03/16/20 16:59 DC 03/16/20 15:58 500 MLS/HR Allergies: Allergies: Allergies Coded Allergies Type Severity Reaction Last Updated Verified No Known Drug Allergies 09/15/15 No Physical Exam: PE: General: Awake, alert, NAD. Cachectic HEENT: Atraumatic, EOMI, PERRL, airway patent, moist oral mucosa Neck: Supple, trachea midline Respiratory: CTA bilaterally, normal effort, no wheezing/crackles CV: Irregularly irregular tachycardia, no murmur, cap refill <2 GI: Soft, nondistended, nontender, no masses MSK: No obvious deformities Skin: Warm, dry, intact Neuro: A&O x3, speech NL, sensory and motor grossly intact, no focal deficits Psych: Normal affect, normal mood, not suicidal or homicidal Current Patient Data: Labs: Laboratory Tests Test 03/16/20 15:09 White Blood Count 10.1 x10^3/uL (4.0-11.0) Red Blood Count 3.46 x10^6/uL (3.50-5.40) L Hemoglobin 10.1 g/dL (12.0-15.5) L Hematocrit 30.2 % (36.0-47.0) L Mean Corpuscular Volume 87 fL (79-100) Mean Corpuscular Hemoglobin 29 pg (25-35) Mean Corpuscular Hemoglobin Concent 34 g/dL (31-37) Red Cell Distribution Width 13.7 % (11.5-14.5) Platelet Count 286 x10^3/uL (140-400) Neutrophils (%) (Auto) 80 % (31-73) H Lymphocytes (%) (Auto) 9 % (24-48) L Monocytes (%) (Auto) 9 % (0-9) Eosinophils (%) (Auto) 0 % (0-3) Basophils (%) (Auto) 1 % (0-3) Neutrophils # (Auto) 8.1 x10^3/uL (1.8-7.7) H Lymphocytes # (Auto) 0.9 x10^3/uL (1.0-4.8) L Monocytes # (Auto) 0.9 x10^3/uL (0.0-1.1) Eosinophils # (Auto) 0.0 x10^3/uL (0.0-0.7) Basophils # (Auto) 0.1 x10^3/uL (0.0-0.2) Sodium Level 140 mmol/L (136-145) Potassium Level 4.0 mmol/L (3.5-5.1) Chloride Level 105 mmol/L (98-107) Carbon Dioxide Level 25 mmol/L (21-32) Anion Gap 10 (6-14) Blood Urea Nitrogen 23 mg/dL (7-20) H Creatinine 1.1 mg/dL (0.6-1.0) H Estimated GFR (Cockcroft-Gault) 47.1 Glucose Level 121 mg/dL (70-99) H Calcium Level 10.2 mg/dL (8.5-10.1) H Troponin I Quantitative 0.111 ng/mL (0.000-0.055) Laboratory Tests 03/16/20 15:09 Laboratory Tests 03/16/20 15:09 Vital Signs: Vital Signs Date Time Temp Pulse Resp B/P (MAP) Pulse Ox O2 Delivery O2 Flow Rate FiO2 03/16/20 16:05 92 03/16/20 16:00 102 03/16/20 15:52 101/55 03/16/20 15:01 98.2 16 Nasal Cannula 2.0 98.2 EKG: EKG: [] Heart Score: Risk Factors: Risk Factors: DM, Current or recent (<one month) smoker, HTN, HLP, family history of CAD, obesity. Risk Scores: Score 0 - 3: 2.5% MACE over next 6 weeks - Discharge Home Score 4 - 6: 20.3% MACE over next 6 weeks - Admit for Clinical Observation Score 7 - 10: 72.7% MACE over next 6 weeks - Early Invasive Strategies Radiology/Procedures: Radiology/Procedures: [] Course & Med Decision Making: Course & Med Decision Making Pertinent Labs and Imaging studies reviewed. (See chart for details) Patient is a 84-year-old female with a past medical history of cardiac valve disease who presents to the Emergency Room complaining of feeling weak and tired. Upon arrival, EKG was performed and shows the patient is in atrial fibrillation with RVR. Patient does not have a history of any cardiac arrhythmia. On exam, patient appears to be at her baseline but does have irregular tachycardia. Patient was given diltiazem and on re-evaluation heart rate has improved. CBC, BMP, BNP, troponin, EKG, and CXR were ordered to evaluate for causes of arrhythmia and to evaluate for end stage organ damage. Dragon Disclaimer: Dragon Disclaimer: This electronic medical record was generated, in whole or in part, using a voice recognition dictation system. Departure Departure Impression: Primary Impression: Atrial fibrillation with RVR Disposition: ADMITTED INPT THIS HOSP Condition: IMPROVED Referrals: SHY SIMON MD (PCP) CHANDLER FONG MD Mar 16, 2020 16:12
--- NOTE | 2020-03-16 17:09 | RAD ---
Exam: Chest one view INDICATION: Chest pain TECHNIQUE: Frontal view of the chest Comparisons: 09/15/2015 FINDINGS: The cardiomediastinal silhouette and pulmonary vessels are within normal limits. Hazy bibasilar airspace disease with a small left pleural effusion. IMPRESSION: Findings likely related to pulmonary edema with small left pleural effusion. Superimposed infectious process is difficult to exclude. Electronically signed by: Ana Cristina Velazquez MD (03/16/2020 5:06 PM) IVIS
[2020-03-16] MEDS ORDERED: VENL37.56 PO (20:09)
[2020-03-16] MEDS ORDERED: ACET325T9 PO (20:09)
[2020-03-16] MEDS ORDERED: FURO40TA4 PO (20:09)
[2020-03-16] MEDS ORDERED: GABA300C18 PO (20:09)
[2020-03-16] MEDS ORDERED: ACETAMINOPHEN 325 MG TABLET. PO PRN ×2 (20:15→20:30)
[2020-03-16] MEDS: PYRIDOSTIGMINE BROMIDE 60 MG TABLET PO SCH (21:00)
[2020-03-16] MEDS ORDERED: MIRTAZAPINE 15 MG TABLET PO SCH (21:00)
[2020-03-16] MEDS: ACETAMINOPHEN 325 MG TABLET. PO SCH (21:00)
--- NOTE | 2020-03-16 22:20 | NUR ---
Pt arrival to room 207 from ER at this time, transferred by bed. Pt able to stand and pivot to new bed with one person stand by assist. Pt high fall risk precautions initiated, education done with pt, pt verbalized understanding. She states she will call prior to getting out of bed, bed alarm is on. Admission questions completed. Pt denies pain at this time. She had a few small wounds on LLE which were photographed. Cardizem gtt running at 15cc an hour (continued from ER) with frequent blood pressures initiated. Items and call light in reach. Pt updated on plan of care, pt verbalized understanding.
[2020-03-16 22:30] VITALS: BP 107/60
[2020-03-16 23:30] VITALS: BP 109/62
[2020-03-16] MEDS: MIRTAZAPINE 7.5 MG TABLET. PO SCH (23:49)
[2020-03-16] MEDS: SERTRALINE 25 MG TABLET. PO SCH (23:50)
[2020-03-16] MEDS: GABAPENTIN 300 MG CAPSULE. PO SCH (23:50)
[2020-03-16] MEDS: CYANOCOBALAMIN (VITAMIN B-12) 1,000 MCG TABLET. PO SCH (23:50)
[2020-03-16] MEDS: HEPARIN for SUB-Q USE 5,000 UNIT/ML VIAL. SQ SCH (23:56)
[2020-03-17] VITALS (14 sets, daily range): BP systolic 94–128; BP diastolic 51–78
[2020-03-17] MEDS: ACETAMINOPHEN 325 MG TABLET. PO SCH ×3 (00:17→21:00)
[2020-03-17] MEDS: DILTIAZEM HCL 125 MG in IV NORMAL SALINE 100ML 100 ML IV PRN ×4 (01:33→18:15)
[2020-03-17] MEDS ORDERED: POTA10TA12 PO (05:22)
[2020-03-17] MEDS ORDERED: VENL37.57 PO (05:22)
[2020-03-17] MEDS ORDERED: LOSA25TA12 PO (05:22)
[2020-03-17 07:39] LABS: BASO # 0.1 x10^3/uL (0.0-0.2); BASO % 1 % (0-3); EOS % 0 % (0-3); HEMATOCRIT 32.5 % (36.0-47.0); HEMOGLOBIN 10.8 g/dL (12.0-15.5); LYMPH # 0.7 x10^3/uL (1.0-4.8); LYMPH % 6 % (24-48); MEAN CORPUSCULAR HEMOGLOBIN 29 pg (25-35); MEAN CORPUSCULAR HGB CONC 33 g/dL (31-37); MEAN CORPUSCULAR VOLUME 88 fL (79-100); MONO # 1.1 x10^3/uL (0.0-1.1); MONO % 9 % (0-9); NEUT # 10.3 x10^3/uL (1.8-7.7); NEUT % 85 % (31-73); PLATELET COUNT 344 x10^3/uL (140-400); RED BLOOD COUNT 3.72 x10^6/uL (3.50-5.40); RED CELL DISTRIBUTION WIDTH 13.5 % (11.5-14.5); WHITE BLOOD COUNT 12.1 x10^3/uL (4.0-11.0)
[2020-03-17] MEDS ORDERED: POTASSIUM CHLORIDE 10 MEQ TABLET.ER. PO SCH (08:00)
[2020-03-17 08:09] LABS: ALBUMIN/GLOBULIN RATIO 0.8 (1.0-1.7); CALCIUM 9.3 mg/dL (8.5-10.1); CREATININE 0.9 mg/dL (0.6-1.0); GFR 59.4; POTASSIUM 3.6 mmol/L (3.5-5.1); TOTAL BILIRUBIN 0.5 mg/dL (0.2-1.0)
[2020-03-17] MEDS: PYRIDOSTIGMINE BROMIDE 60 MG TABLET PO SCH ×3 (08:20→20:32)
[2020-03-17] MEDS: FERROUS SULFATE 325 MG TABLET. PO SCH (08:20)
[2020-03-17] MEDS: GABAPENTIN 300 MG CAPSULE. PO SCH ×2 (08:21→20:32)
[2020-03-17] MEDS: PANTOPRAZOLE 40 MG TABLET.DR. PO SCH (08:21)
[2020-03-17] MEDS: FUROSEMIDE 40 MG TABLET. PO SCH ×2 (08:21→14:00)
[2020-03-17] MEDS: PSYLLIUM HUSK (SUGAR FREE) 1 PKT PACKET PO SCH (08:22)
[2020-03-17] MEDS: HEPARIN for SUB-Q USE 5,000 UNIT/ML VIAL. SQ SCH ×2 (08:40→21:00)
[2020-03-17] MEDS: LOSARTAN POTASSIUM 25 MG TABLET. PO SCH (08:43)
--- NOTE | 2020-03-17 09:42 | PDOC ---
Provider Note Date of Service: DATE: 03/17/20 TIME: 09:41 Provider Note H&P dictated. #[id number] Justifications for Admission Other Justification SHY SIMON MD Mar 17, 2020 09:42
--- NOTE | 2020-03-17 10:02 | HP ---
ADMIT DATE: 03/16/2020 HISTORY OF PRESENT ILLNESS: This 84-year-old female started becoming hot yesterday morning. She felt hot, dizzy, weak and more short of breath. Her legs were getting weaker. Because of that, she came to the Emergency Room. She denied any chest pains, nausea, vomiting, abdominal pain, fever, cold, cough or chills. In the Emergency Room, the patient was noted to have new-onset atrial fibrillation with fast ventricular rate and was started on IV Cardizem drip and admitted to telemetry for further management. SYSTEMS REVIEW: As noted in the history of present illness. The patient denies any chest pains or palpitations. She feels hot on and off. Other systems reviewed and are negative. PAST MEDICAL HISTORY: The patient was last admitted here on 12/06/2019. She has history of frequent falls, myasthenia gravis, hypertension with chronic kidney disease stage 3, gastroesophageal reflux disease, hyperlipidemia, osteoarthritis and anemia of chronic disease. Echocardiogram done on 02/18/2020 showed severe mitral valve regurgitation; ejection fraction was 60-65%. She has been recently retaining increased fluid in the lower extremities and is on Lasix and potassium supplements and losartan. SURGICAL HISTORY: Includes removal of skin cancer, cholecystectomy, cataract removal, tonsillectomy and hemorrhoidectomy. FAMILY HISTORY: Brother had skin cancer and brain cancer. Father had skin cancer. Mother had breast cancer. SOCIAL HISTORY: No history of smoking, alcoholism or drug abuse. The patient lives alone in a trailer. ALLERGIES: None known any. MEDICATIONS: Reviewed and reconciled. PHYSICAL EXAMINATION: GENERAL: The patient is an elderly female, who is alert, oriented and not in acute distress. VITAL SIGNS: Temperature 98.1; pulse 94 per minute, irregular; respirations 20 per minute; blood pressure 107/60 mmHg; the patient is on oxygen by nasal cannula 5 liters per minute. EYES: Pupils reacting to light. Conjunctivae pale. Sclerae muddy. HENT: Unremarkable. NECK: Supple. JVP normal. No thyromegaly. Trachea midline. LUNGS: Decreased breath sounds at bases with occasional rales and mild tachypnea. CARDIOVASCULAR: S1, S2, irregular. ABDOMEN: Soft, nontender. No guarding, no rigidity. Liver and spleen not palpable. Bowel sounds present. EXTREMITIES: Trace edema. CENTRAL NERVOUS SYSTEM: Alert and oriented, not in any acute distress. SKIN: Warm and dry. Bruising and wounds improving. IMPRESSION: 1. New-onset atrial fibrillation. 2. Acute hypoxic respiratory failure. Chest x-ray shows possible pulmonary edema. She is on oxygen by nasal cannula 5 liters per minute. Continue Lasix and potassium supplements. 3. Hypokalemia. Replace potassium. 4. Hypertension. 5. Myasthenia gravis. 6. Osteoarthritis. 7. Anxiety. 8. Frequent falls. 9. Gastroesophageal reflux disease. 10. Hypertension with chronic kidney disease 3. 11. Physical deconditioning. 12. Easy bruising and bleeding and frequent falls. PLAN: Consult Dr. Mclean for cardiology evaluation and management. The patient is on Cardizem drip. I will order venous Doppler of both lower extremities. I will also consult Dr. Mac for pulmonary evaluation and management. Continue oxygen by nasal cannula. Continue losartan and Lasix and increase potassium supplementation. Continue wound care. For details, please refer to the orders. The patient also has severe mitral regurgitation. For details, please refer to the orders. I have only given her low-dose anticoagulation with subcutaneous heparin because of her frequent falls, easy bruising, bleeding and wounds. For details, please refer to the orders. SHY SIMON MD DR: CRISTOFER/urbano JOB#: [id number] / [id number]
[2020-03-17] MEDS ORDERED: FUROSEMIDE 20 MG/2 ML VIAL. IVP ONE ×2 (10:30→15:00)
--- NOTE | 2020-03-17 10:38 | CONS ---
DATE OF CONSULTATION: PULMONARY CONSULTATION ATTENDING PHYSICIAN: Todd Rivas MD. REASON FOR CONSULTATION: Dyspnea, respiratory failure. HISTORY OF PRESENT ILLNESS: The patient is an 84-year-old pleasant female who has no significant tobacco history. She has history of [id number] mitral regurgitation based on an echo recently with a normal ejection fraction. She was brought into the hospital with shortness of breath since last 48 hours. She had felt hot and dizzy and weak. Has some lower extremity edema. No chest pain, no cough, no fever, no chills. No dysuria. She was found to be in atrial fibrillation, new onset with rapid ventricular response. She is currently on Cardizem. I have seen her chest x-ray which shows diffuse interstitial infiltrates consistent with congestive heart failure. PAST MEDICAL HISTORY: Significant for history of severe mitral regurgitation based on 02/07 echocardiogram. History of myasthenia gravis, history of hypertension, CKD stage 3, gastroesophageal reflux disease, hyperlipidemia, and anemia of chronic disease. PAST SURGICAL HISTORY: Skin cancer removal, cholecystectomy, tonsillectomy, and hemorrhoidectomy. FAMILY HISTORY: Brother had skin cancer. SOCIAL HISTORY: No history of tobacco or alcoholism. ALLERGIES: None. MEDICATIONS: Reviewed as listed in the MRAD and include furosemide p.o., diltiazem drip, heparin for DVT prophylaxis. REVIEW OF SYSTEMS: Twelve-point system obtained. Pertinent positives discussed in my history of present illness, otherwise noncontributory. All systems that were negative were reviewed as well. PHYSICAL EXAMINATION: VITAL SIGNS: Reviewed. She is on 5 liters, saturations are 91%, blood pressure is 94-117 systolic. Afebrile. NECK: Supple. LUNGS: With crackles posteriorly. CARDIOVASCULAR: With irregular rhythm. ABDOMEN: Soft, nontender. EXTREMITIES: With 1+ pitting edema. LABORATORY DATA: Reviewed. White cell count 12.1, hemoglobin 10.8, platelets are 344. BUN 21, creatinine 0.9. Troponin 0.11. IMPRESSION: 1. Acute hypoxic respiratory failure secondary to acute pulmonary edema. The risk factor includes severe mitral regurgitation/ Atrial fibrillation with RVR 2. Abnormal chest x-ray with diffuse interstitial infiltrates consistent with congestive heart failure. 3. Recent echocardiogram with normal ejection fraction, but with [id number] mitral regurgitation contributing to congestive heart failure. 4. History of myasthenia gravis, on pyridostigmine. 5. Atrial fibrillation with RVR RECOMMENDATIONS: 1. We will continue with present oxygen. Wean FiO2 to keep saturation 92 and above. 2. PRN IV Lasix. She is currently on oral Lasix. She will benefit from cautious IV diuresis. 3. Monitor blood pressure closely. 4. Follow cardiology recommendations regarding severe mitral regurgitation. 5. Follow renal function. 6. DVT prophylaxis. 7. Atrial fibrillation with RVR to be managed per Cardiology, currently on Cardizem drip. 8. Continue pyridostigmine for myasthenia gravis. 9. We will follow along with you. Discussed with RN. ROSELINE GREEN MD DR: LORETTA/urbano JOB#: [id number] / [id number]
[2020-03-17] MEDS ORDERED: VENLAFAXINE XR 37.5 MG CAP.ER.24H. PO SCH (11:30)
--- NOTE | 2020-03-17 11:53 | NUR ---
SW following. Discussed with RN, pt from home alone, 4L oxygen (does not use at home), cardiac diet. RN ordering PT/OT. Pulmonology following. SW awaiting PT/OT recommendations to determine any therapy needs at discharge. SW will continue to follow.
[2020-03-17] MEDS ORDERED: POTASSIUM CHLORIDE 20 MEQ TABLET.ER. PO ONE (12:00)
--- NOTE | 2020-03-17 12:16 | PDOC2 ---
PATITO YO MORTGAGE FUNDER 03/17/20 1216: CARDIAC CONSULT DATE OF CONSULT Date of Consult DATE: 03/17/20 TIME: 12:10 REASON FOR CONSULT Reason for Consult: New AFIB RVR REFERRING PHYSICIAN Referring Physician: Dr. Bernal SOURCE Source: Chart review, Patient HISTORY OF PRESENT ILLNESS HISTORY OF PRESENT ILLNESS This is an 84 yo female who presented secondary to weakness, fatigue, and shortness of breath. Was noted in AFIB with RVR, which prompted this consult. Patient reports experiencing palpitations. No chest pain, dizziness, diaphoresis, or nausea/vomiting. No known prior h/o AFIB. PAST MEDICAL HISTORY Cardiovascular: HTN, Hyperlipidemia, Valve insufficiency GI: GERD Musculoskeletal: Osteoarthritis PAST SURGICAL HISTORY Past Surgical History: Cholecystectomy, Tonsillectomy FAMILY HISTORY Family History: Diabetes, Heart Disease, Hypertension SOCIAL HISTORY Smoke: No ALCOHOL: none Drugs: None Lives: Alone CURRENT MEDICATIONS CURRENT MEDICATIONS Current Medications Medications (Trade) Dose Ordered Sig/Nathalie Route PRN Reason Start Time Stop Time Status Last Admin Dose Admin Diltiazem HCl (Cardizem Iv Push) 20 mg 1X ONCE IVP 03/16/20 15:15 03/16/20 15:16 DC 03/16/20 15:25 Diltiazem HCl (Cardizem Iv Push) 20 mg 1X ONCE IVP 03/16/20 15:45 03/16/20 15:46 DC 03/16/20 15:52 Diltiazem HCl 125 mg/Sodium Chloride 125 ml @ 5 mls/hr 1X ONCE IV 03/16/20 15:45 03/17/20 16:44 03/16/20 15:56 Sodium Chloride 500 ml @ 500 mls/hr 1X ONCE IV 03/16/20 16:00 03/16/20 16:59 DC 03/16/20 15:58 Heparin Sodium (Porcine) (Heparin Sodium) 5,000 unit Q12HR SQ 03/16/20 21:00 03/17/20 08:40 Cyanocobalamin (Vitamin B-12) 1,000 mcg HS PO 03/16/20 21:00 03/16/20 23:50 Ferrous Sulfate (Feosol) 325 mg DAILY PO 03/17/20 09:00 03/17/20 08:20 Furosemide (Lasix) 40 mg BID92 PO 03/17/20 09:00 12/28/20 08:21 Gabapentin (Neurontin) 300 mg BID PO 03/16/20 21:00 03/17/20 08:21 Pyridostigmine [place] (Mestinon) 60 mg TID PO 03/16/20 21:00 03/17/20 08:20 Sertraline HCl (Zoloft) 25 mg HS PO 03/16/20 21:00 03/16/20 23:50 Pantoprazole Sodium (Protonix) 40 mg DAILYAC PO 03/17/20 07:30 03/17/20 08:21 Potassium Chloride (Klor-Con) 10 meq DAILYWBKFT PO 03/17/20 08:00 03/17/20 08:22 Psyllium Hydrophilic Mucilloid (Metamucil Fiber Packet) 1 pkt DAILY PO 03/17/20 09:00 03/17/20 08:22 Acetaminophen (Tylenol) 650 mg BID PO 03/16/20 21:00 03/17/20 08:20 Mirtazapine (Remeron) 7.5 mg QHS PO 03/16/20 21:00 03/16/20 23:49 Diltiazem HCl 125 mg/Sodium Chloride 125 ml @ 5 mls/hr CONT PRN IV SEE I/O RECORD 03/17/20 01:00 03/17/20 08:32 Furosemide (Lasix) 20 mg 1X ONCE IVP 03/17/20 10:30 03/17/20 10:31 DC 03/17/20 10:49 ALLERGIES ALLERGIES: Coded Allergies: No Known Drug Allergies (Unverified , 09/15/15) ROS Review of System 14 point ROS conducted with pertinent positives noted above in HPI PHYSICAL EXAM General: Alert, Oriented X3, Cooperative, No acute distress HEENT: Atraumatic Lungs: Clear to auscultation Heart: Other (IRRR; tele AFIB. Rate intermittently elevated ) Abdomen: Soft Extremities: No edema, Normal pulses Skin: No significant lesion Neuro: Normal speech, Sensation intact Psych/Mental Status: Mental status NL, Mood NL MUSCULOSKELETAL: Osteoarthritic changes both hands VITALS/I&O VITALS/I&O: Vital Signs Date Time Temp Pulse Resp B/P (MAP) Pulse Ox O2 Delivery O2 Flow Rate FiO2 03/17/20 11:00 98.1 92 20 102/52 (69) 89 Nasal Cannula 5.0 98.1 I & O 12/27/20 12/27/20 12/28/20 14:59 22:59 06:59 Intake Total 500 ml 100 ml Output Total 200 ml Balance 500 ml -100 ml LABS Lab: Laboratory Tests Test 03/16/20 15:09 03/17/20 06:10 White Blood Count 10.1 x10^3/uL (4.0-11.0) 12.1 x10^3/uL (4.0-11.0) H Red Blood Count 3.46 x10^6/uL (3.50-5.40) L 3.72 x10^6/uL (3.50-5.40) Hemoglobin 10.1 g/dL (12.0-15.5) L 10.8 g/dL (12.0-15.5) L Hematocrit 30.2 % (36.0-47.0) L 32.5 % (36.0-47.0) L Mean Corpuscular Volume 87 fL (79-100) 88 fL (79-100) Mean Corpuscular Hemoglobin 29 pg (25-35) 29 pg (25-35) Mean Corpuscular Hemoglobin Concent 34 g/dL (31-37) 33 g/dL (31-37) Red Cell Distribution Width 13.7 % (11.5-14.5) 13.5 % (11.5-14.5) Platelet Count 286 x10^3/uL (140-400) 344 x10^3/uL (140-400) Neutrophils (%) (Auto) 80 % (31-73) H 85 % (31-73) H Lymphocytes (%) (Auto) 9 % (24-48) L 6 % (24-48) L Monocytes (%) (Auto) 9 % (0-9) 9 % (0-9) Eosinophils (%) (Auto) 0 % (0-3) 0 % (0-3) Basophils (%) (Auto) 1 % (0-3) 1 % (0-3) Neutrophils # (Auto) 8.1 x10^3/uL (1.8-7.7) H 10.3 x10^3/uL (1.8-7.7) H Lymphocytes # (Auto) 0.9 x10^3/uL (1.0-4.8) L 0.7 x10^3/uL (1.0-4.8) L Monocytes # (Auto) 0.9 x10^3/uL (0.0-1.1) 1.1 x10^3/uL (0.0-1.1) Eosinophils # (Auto) 0.0 x10^3/uL (0.0-0.7) 0.0 x10^3/uL (0.0-0.7) Basophils # (Auto) 0.1 x10^3/uL (0.0-0.2) 0.1 x10^3/uL (0.0-0.2) Sodium Level 140 mmol/L (136-145) 143 mmol/L (136-145) Potassium Level 4.0 mmol/L (3.5-5.1) 3.6 mmol/L (3.5-5.1) Chloride Level 105 mmol/L (98-107) 106 mmol/L (98-107) Carbon Dioxide Level 25 mmol/L (21-32) 27 mmol/L (21-32) Anion Gap 10 (6-14) 10 (6-14) Blood Urea Nitrogen 23 mg/dL (7-20) H 21 mg/dL (7-20) H Creatinine 1.1 mg/dL (0.6-1.0) H 0.9 mg/dL (0.6-1.0) Estimated GFR (Cockcroft-Gault) 47.1 59.4 Glucose Level 121 mg/dL (70-99) H 126 mg/dL (70-99) H Calcium Level 10.2 mg/dL (8.5-10.1) H 9.3 mg/dL (8.5-10.1) Troponin I Quantitative 0.111 ng/mL (0.000-0.055) BUN/Creatinine Ratio 23 (6-20) H Total Bilirubin 0.5 mg/dL (0.2-1.0) Aspartate Amino Transferase (AST) 23 U/L (15-37) Alanine Aminotransferase (ALT) 24 U/L (14-59) Alkaline Phosphatase 104 U/L (46-116) Total Protein 7.0 g/dL (6.4-8.2) Albumin 3.0 g/dL (3.4-5.0) L Albumin/Globulin Ratio 0.8 (1.0-1.7) L Laboratory Tests 03/16/20 15:09 03/17/20 06:10 Laboratory Tests 03/16/20 15:09 03/17/20 06:10 ECHOCARDIOGRAM ECHOCARDIOGRAM <Conclusion> There is moderate concentric left ventricular hypertrophy. The left ventricular systolic function is normal and the ejection fraction is within normal range. The Ejection Fraction is 60-65%. There is normal LV segmental wall motion. Doppler and Color Flow revealed mild aortic regurgitation. Doppler and Color-flow revealed moderate to severe eccentric mitral regurgitation. DATE: 02/18/20 [id number] HEART CATH HEART CATH Findings. Hemodynamics. Left ventricle 180/16, aortic root are 170/68. Coronaries. Left main. The left main is a moderate size vessel with no lesions. Left anterior descending. The LAD is a moderate size vessel. There was a mid 20% lesion. Left circumflex. The left circumflex is a moderate sized dominant vessel. There are no lesions. Right coronary artery. The right coronary artery is a moderate size nondominant vessel. There are no lesions. Left ventriculogram. Left ventricle showed normal systolic function with ejection fraction of 60%. <Conclusion> Mild single-vessel coronary artery disease. Normal left ventricular systolic function. No significant LV, AO gradient. DATE: 09/17/15 1440 ASSESSMENT/PLAN ASSESSMENT/PLAN 1. AFIB with RVR; new onset on Cardizem gtt at 15mg 2. Acute respiratory failure with acute on chronic diastolic CHF 3. Mild troponin elevation; initial 0.1. Most probable type II, demand ischemia in setting of above 4. Hypertension; low end 5. Hyperlipidemia 6. MR; moderate to severe Recommendations Start oral Cardizem TSH Lipids Add ASA Trend troponin Mild diuresis with monitoring or labs Consider low-dose Eliquis for stroke prophylaxis. Will discussed with primary drill runner KASSIDY SHINE MD 03/17/20 1638: CARDIAC CONSULT ASSESSMENT/PLAN ASSESSMENT/PLAN Patient seen and examined I agree with our nurse practitioners assessment and plan as above. Atrial fibrillation with rapid ventricular response. Converting IV Cardizem to oral Cardizem. Continuing to monitor. Heart failure. Rate control as above. Continue mild diuresis at this time. Minimally elevated troponin at 0.1. No chest pain. No acute ischemic EKG changes. Will trend. Hypertension. Resume baseline medications. Hyperlipidemia. Statin. Mitral regurgitation. Moderate to severe. Medical treatment as noted above with monitoring clinical course. Thank you for allowing us to participate in the care of your patient. PATITO YO APRN Mar 17, 2020 12:16 KASSIDY SHINE MD Mar 17, 2020 16:38
[2020-03-17] MEDS ORDERED: DIGOXIN IV 500 MCG/2 ML AMPUL. IV ONE (13:00)
--- NOTE | 2020-03-17 14:05 | RAD ---
Examination: Bilateral Lower Extremity Venous Doppler Ultrasound History: Bilateral leg swelling Comparison: None Procedure: Steinberg scale, color flow 2D and spectal waveform analysis images are obtained with and witho ut compression in the area of the common femoral vein, superficial femoral vein - femoral vein juncti on, main femoral vein (superficial femoral vein) and popliteal vein. Veins of the proximal calf are a lso imaged. Findings: There is normal duplex flow, color flow and compressibility of all visualized vein segments. No evide nce of deep venous thrombus is present. Impression: No evidence of DVT in the bilateral lower extremity venous system. Electronically signed by: Abad Roahc MD (03/17/2020 2:02 PM) [id number]
--- NOTE | 2020-03-17 14:45 | NUR ---
Wound Care: Patient seen per wound care consult for wound to left lower leg. There are no open wounds at this time. The left lower leg is now scabbed. No other wounds noted. Wound care will sign off at this time. Please re consult wound care regarding any other changes per wound care. Pt in chair at this time and call light in reach.
[2020-03-17] MEDS: MIRTAZAPINE 7.5 MG TABLET. PO SCH (20:32)
[2020-03-17] MEDS: CYANOCOBALAMIN (VITAMIN B-12) 1,000 MCG TABLET. PO SCH (21:00)
[2020-03-17] MEDS ORDERED: FUROSEMIDE 40 MG/4 ML VIAL. IVP ONE (21:00)
[2020-03-17] MEDS: SERTRALINE 25 MG TABLET. PO SCH (21:00)
[2020-03-18] VITALS (16 sets, daily range): BP systolic 0–141; BP diastolic 0–62
[2020-03-18] MEDS: DILTIAZEM HCL 125 MG in IV NORMAL SALINE 100ML 100 ML IV PRN (02:45)
[2020-03-18] MEDS: PANTOPRAZOLE 40 MG TABLET.DR. PO SCH (07:30)
[2020-03-18 07:57] LABS: BASO % 0 % (0-3); EOS % 0 % (0-3); HEMATOCRIT 34.8 % (36.0-47.0); HEMOGLOBIN 11.4 g/dL (12.0-15.5); LYMPH # 0.4 x10^3/uL (1.0-4.8); LYMPH % 2 % (24-48); MEAN CORPUSCULAR HEMOGLOBIN 29 pg (25-35); MEAN CORPUSCULAR HGB CONC 33 g/dL (31-37); MEAN CORPUSCULAR VOLUME 88 fL (79-100); MONO % 6 % (0-9); NEUT # 15.9 x10^3/uL (1.8-7.7); NEUT % 92 % (31-73); PLATELET COUNT 372 x10^3/uL (140-400); RED BLOOD COUNT 3.96 x10^6/uL (3.50-5.40); RED CELL DISTRIBUTION WIDTH 13.6 % (11.5-14.5); WHITE BLOOD COUNT 17.3 x10^3/uL (4.0-11.0)
[2020-03-18 08:27] LABS: ALBUMIN 2.9 g/dL (3.4-5.0); ALBUMIN/GLOBULIN RATIO 0.7 (1.0-1.7); CALCIUM 9.6 mg/dL (8.5-10.1); CREATININE 0.8 mg/dL (0.6-1.0); MAGNESIUM 2.1 mg/dL (1.8-2.4); POTASSIUM 3.3 mmol/L (3.5-5.1); TOTAL BILIRUBIN 0.7 mg/dL (0.2-1.0); TOTAL PROTEIN 7.2 g/dL (6.4-8.2)
[2020-03-18] MEDS: ACETAMINOPHEN 325 MG TABLET. PO SCH (09:00)
[2020-03-18] MEDS: PYRIDOSTIGMINE BROMIDE 60 MG TABLET PO SCH (09:00)
[2020-03-18] MEDS: LOSARTAN POTASSIUM 25 MG TABLET. PO SCH (09:00)
[2020-03-18] MEDS: FUROSEMIDE 40 MG TABLET. PO SCH (09:00)
[2020-03-18] MEDS: GABAPENTIN 300 MG CAPSULE. PO SCH (09:00)
[2020-03-18] MEDS: PSYLLIUM HUSK (SUGAR FREE) 1 PKT PACKET PO SCH (09:00)
[2020-03-18] MEDS: FERROUS SULFATE 325 MG TABLET. PO SCH (09:00)
--- NOTE | 2020-03-18 09:10 | NUR ---
Pager showed patient in asystole. Upon entering patient room, pt noted to by cyanotic, not breathing, with no pulse. Code blue called and compression immediately started. Code team arrived and code in progress.
[2020-03-18] MEDS ORDERED: NOREPINEPHRINE VIAL 8 MG in IV DEXTROSE 5% 250 ML IV PRN (10:00)
--- NOTE | 2020-03-18 10:18 | RAD ---
XR CHEST 1V History: Reason: ET and OG placement / Spl. Instructions: / History: Comparison: March 16, 2020 Findings: Small to moderate right hydropneumothorax. Small left pleural effusion, unchanged. Increased diffuse interstitial and alveolar opacities. Unchanged heart size. Interval placement right IJ central line with tip projecting over the right atrium. Interval placemen t enteric tube with tip below the diaphragm beyond the image. Interval intubation with endotracheal t ube tip 7.2 cm above the flex. Impression: 1. Small to moderate right hydropneumothorax. 2. Increased diffuse interstitial and alveolar opacities. 3. Small left pleural effusion, unchanged. 4. Interval placement of lines and tubes, as described. FOR INTERNAL CODING PURPOSES Critical result: Findings discussed with patient's nurse at 03/18/2020 10:14 AM. RESULT CODE: (C) Electronically signed by: Gerald Ovalle DO (03/18/2020 10:16 AM) [id number]
--- NOTE | 2020-03-18 10:30 | NUR ---
Rec'd from floor post code with ER team Pt placed on vent 100%. BP low Dop infusing at 20M/K/M Levo added. DR Bolton at bedside and placed Rt CL. brown to DD. Dr Schaeffer here also Polly BUSINESS SUPPORT ASSISTANT talked with Ismael PERALES and pt is now DNR/DNI. NS ibolus infusing. Pt havoing seizure-like activity. CXR seen by Dr Bolton and Rt pigtail CT inserted for presence of PNX. Pupils very sluggish. ABG and vent incresaed to rate [address] Schaeffer talked with Dr Larson regarding current position of pigtail. Dr Rivas here. Will speak with Norah PERALES on phone. Cont present treatment. Another 500cc NS bolus to total 2000cc
[2020-03-18 10:39] LABS: BASE EXCESS ABG -8 mmol/L (-3-3); HCO3 ABG 19 mmol/L (21-28); PCO2 ABG 44 mmHg (35-46); PO2 ABG 55 mmHg (65-108); SAT O2 ABG 81 % (92-99)
--- NOTE | 2020-03-18 10:43 | PDOC ---
IM PROGRESS NOTES- Subjective Subjective Yesterday, the patient had become more dyspneic requiring BiPAP. She also had increased anxiety requiring IV Ativan. This morning patient complained of abdominal pain and then went into asystole. She was coded, intubated and transferred to intensive care unit. Postintubation x-ray shows mild to moderate right hydropneumothorax and small pleural effusion. She was also treated for V.Fib. Objective Vitals/I&O Vital Signs Date Time Temp Pulse Resp B/P (MAP) Pulse Ox O2 Delivery O2 Flow Rate FiO2 03/18/20 09:45 Ventilator 03/18/20 07:12 93 03/18/20 07:00 98.1 90 26 104/57 (73) 98.1 03/17/20 19:51 5.0 I & O 03/17/20 03/17/20 03/18/20 15:00 23:00 07:00 Intake Total 455 ml 200 ml Output Total 450 ml 950 ml Balance 455 ml -250 ml -950 ml Physical Exam Physical Exam General appearance -sedated on mechanical ventilation. Mental Status -sedated Head - normal Chest -decreased breath sounds at bases Heart - S1 and S2 normal Abdomen - soft, non tender, Neurological -sedated Musculoskeletal -generalized weakness Extremities - no pedal edema Skin - warm and dry Labs Laboratory Tests Test 03/18/20 07:02 03/18/20 09:12 White Blood Count 17.3 x10^3/uL (4.0-11.0) H Red Blood Count 3.96 x10^6/uL (3.50-5.40) Hemoglobin 11.4 g/dL (12.0-15.5) L Hematocrit 34.8 % (36.0-47.0) L Mean Corpuscular Volume 88 fL (79-100) Mean Corpuscular Hemoglobin 29 pg (25-35) Mean Corpuscular Hemoglobin Concent 33 g/dL (31-37) Red Cell Distribution Width 13.6 % (11.5-14.5) Platelet Count 372 x10^3/uL (140-400) Neutrophils (%) (Auto) 92 % (31-73) H Lymphocytes (%) (Auto) 2 % (24-48) L Monocytes (%) (Auto) 6 % (0-9) Eosinophils (%) (Auto) 0 % (0-3) Basophils (%) (Auto) 0 % (0-3) Neutrophils # (Auto) 15.9 x10^3/uL (1.8-7.7) H Lymphocytes # (Auto) 0.4 x10^3/uL (1.0-4.8) L Monocytes # (Auto) 1.0 x10^3/uL (0.0-1.1) Eosinophils # (Auto) 0.0 x10^3/uL (0.0-0.7) Basophils # (Auto) 0.0 x10^3/uL (0.0-0.2) Platelet Estimate Pending Sodium Level 143 mmol/L (136-145) Potassium Level 3.3 mmol/L (3.5-5.1) L Chloride Level 104 mmol/L (98-107) Carbon Dioxide Level 28 mmol/L (21-32) Anion Gap 11 (6-14) Blood Urea Nitrogen 22 mg/dL (7-20) H Creatinine 0.8 mg/dL (0.6-1.0) Estimated GFR (Cockcroft-Gault) 68.0 BUN/Creatinine Ratio 28 (6-20) H Glucose Level 134 mg/dL (70-99) H Calcium Level 9.6 mg/dL (8.5-10.1) Magnesium Level 2.1 mg/dL (1.8-2.4) Total Bilirubin 0.7 mg/dL (0.2-1.0) Aspartate Amino Transferase (AST) 19 U/L (15-37) Alanine Aminotransferase (ALT) 26 U/L (14-59) Alkaline Phosphatase 109 U/L (46-116) Total Protein 7.2 g/dL (6.4-8.2) Albumin 2.9 g/dL (3.4-5.0) L Albumin/Globulin Ratio 0.7 (1.0-1.7) L Triglycerides Level 80 mg/dL (0-150) Cholesterol Level 170 mg/dL (0-200) LDL Cholesterol, Calculated 97 mg/dL (0-100) VLDL Cholesterol, Calculated 16 mg/dL (0-40) Non-HDL Cholesterol Calculated 113 mg/dL (0-129) HDL Cholesterol 57 mg/dL (40-60) Cholesterol/HDL Ratio 3.0 Thyroid Stimulating Hormone (TSH) 3.313 uIU/mL (0.358-3.74) Glucose (Fingerstick) 160 mg/dL (70-99) H Laboratory Tests 03/18/20 07:02 Laboratory Tests 03/18/20 07:02 Meds Current Medications Medications (Trade) Dose Ordered Sig/Nathalie Route PRN Reason Start Time Stop Time Status Last Admin Dose Admin Venlafaxine HCl (Effexor Xr) 37.5 mg DAILYBFRLUN PO 03/17/20 11:30 03/17/20 12:11 Potassium Chloride (Klor-Con) 20 meq 1X ONCE PO 03/17/20 12:00 03/17/20 12:01 DC 03/17/20 12:11 Digoxin (Lanoxin) 500 mcg 1X ONCE IV 03/17/20 13:00 03/17/20 13:05 DC 03/17/20 15:28 Furosemide (Lasix) 20 mg 1X ONCE IVP 03/17/20 15:00 03/17/20 15:01 DC 03/17/20 15:26 Furosemide (Lasix) 40 mg 1X ONCE IVP 03/17/20 21:00 03/17/20 21:01 DC 03/17/20 21:36 Assessment Assessment 1. New-onset atrial fibrillation. 2. Acute hypoxic respiratory failure. Chest x-ray shows possible pulmonary edema. She is on oxygen by nasal cannula 5 liters per minute. Continue Lasix and potassium supplements. 3. Hypokalemia. Replace potassium. 4. Hypertension. 5. Myasthenia gravis. 6. Osteoarthritis. 7. Anxiety. 8. Frequent falls. 9. Gastroesophageal reflux disease. 10. Hypertension with chronic kidney disease 3. 11. Physical deconditioning. 12. Easy bruising and bleeding and frequent falls. PLAN: Consult Dr. Mclean for cardiology evaluation and management. The patient is on Cardizem drip. I will order venous Doppler of both lower extremities. I will also consult Dr. Mac for pulmonary evaluation and management. Continue oxygen by nasal cannula. Continue losartan and Lasix and increase potassium supplementation. Continue wound care. For details, please refer to the orders. The patient also has severe mitral regurgitation. For details, please refer to the orders. I have only given her low-dose anticoagulation with subcutaneous heparin because of her frequent falls, easy bruising, bleeding and wounds. For details, please refer to the orders Acute hypoxic respiratory failure-patient went into asystole and had to be intubated. Patient has been transferred to intensive care unit. Dr. Mac has been consulted for pulmonary evaluation and management. Prior to that she was on BiPAP. Bilateral lower extremity venous Dopplers are negative. Right mild to moderate hydropneumothorax status post intubation. Pig tail catheter placed. Atrial fibrillation with fast ventricular rate -controlled on Cardizem IV drip. Hypokalemia potassium is 3.4. Continue replacement Severe mitral regurgitation-echocardiogram on February 18, 2020 showed ejection fraction of 60 to 65%. Acute hypotension-IV fluids, pressure support. Myasthenia gravis-continue pyridostigmine Anxiety-as needed Ativan. Had abnormal movements- ? anoxic. Iv Versed will be started. Prognosis of this patient is extremely poor due to her multiple medical problems. DPOA wants her to be DNI/DNR. Detailed message left for DPJOSE Almazan. Plan Plan For more details regarding further plans, please refer to the orders. Justifications for Admission Other Justification SHY SIMON MD Mar 18, 2020 10:43
[2020-03-18 10:46] LABS: FIO2 ABG 100
--- NOTE | 2020-03-18 10:48 | RAD ---
XR CHEST 1V History: Reason: tube placement 105 / Spl. Instructions: / History: Comparison: March 18, 2020 Findings: Interval placement right chest tube traversing over the mediastinum with tip projecting over the left midlung. Minimal right lateral chest wall subcutaneous gas. Decreased small right hydropneumothorax. Diffuse interstitial and alveolar opacities, unchanged. Smal l left pleural effusion, unchanged. Stable endotracheal tube and enteric tube as well as right IJ jailene tral line. No left pneumothorax. Unchanged heart size. Impression: 1. Interval placement right chest tube with tip projecting over the left mid chest. Recommend CT to further evaluate tube location. 2. Decreased small right hydropneumothorax. 3. Unchanged diffuse interstitial and alveolar opacities. 4. Small left pleural effusion, unchanged. FOR INTERNAL CODING PURPOSES Critical result: Findings discussed with patient's nurse at 03/18/2020 10:43 AM. RESULT CODE: (C) Electronically signed by: Gerald Ovalle DO (03/18/2020 10:45 AM) [id number]
[2020-03-18] MEDS ORDERED: POTASSIUM CHLORIDE 20 MEQ TABLET.ER. PO SCH (11:00)
[2020-03-18] MEDS ORDERED: MIDAZOLAM HCL/PF 2 MG/2 ML VIAL. IV PRN (11:00)
[2020-03-18 11:39] LABS: % BANDS 5 % (0-9); % LYMPHS 5 % (24-48); % MONOS 5 % (0-10); % SEGS 85 % (35-66)
[2020-03-18 11:41] LABS: PLT ESTIMATE ADEQUATE (ADEQUATE)
[2020-03-18] MEDS ORDERED: IV NORMAL SALINE 500ML BAG 500 ML IV ONE (11:45)
--- NOTE | 2020-03-18 12:04 | PDOC ---
PATITO YO MACHINE OPERATOR PACKAGING 03/18/20 1204: CARDIO Progress Notes Date and Time Date of Service 03/18/20 Time of Evaluation 1200 Subjective Subjective: Other (intubated/sedated. ) Comments: transferred to ICU s/p asystole arrest this am Vitals Vitals Vital Signs Date Time Temp Pulse Resp B/P (MAP) Pulse Ox O2 Delivery O2 Flow Rate FiO2 03/18/20 09:45 Ventilator 03/18/20 07:12 93 03/18/20 07:00 98.1 90 26 104/57 (73) 98.1 03/17/20 19:51 5.0 Weight Weight [ ] Input and Output Intake and Output Intake and Output 03/18/20 07:00 Intake Total 655 ml Output Total 1400 ml Balance -745 ml Intake Oral 655 ml Output Urine Total 1400 ml # Voids 3 # Bowel Movements 2 Laboratory Labs Laboratory Tests Test 03/18/20 07:02 03/18/20 09:12 03/18/20 10:30 White Blood Count 17.3 x10^3/uL (4.0-11.0) Red Blood Count 3.96 x10^6/uL (3.50-5.40) Hemoglobin 11.4 g/dL (12.0-15.5) Hematocrit 34.8 % (36.0-47.0) Mean Corpuscular Volume 88 fL (79-100) Mean Corpuscular Hemoglobin 29 pg (25-35) Mean Corpuscular Hemoglobin Concent 33 g/dL (31-37) Red Cell Distribution Width 13.6 % (11.5-14.5) Platelet Count 372 x10^3/uL (140-400) Neutrophils (%) (Auto) 92 % (31-73) Lymphocytes (%) (Auto) 2 % (24-48) Monocytes (%) (Auto) 6 % (0-9) Eosinophils (%) (Auto) 0 % (0-3) Basophils (%) (Auto) 0 % (0-3) Neutrophils # (Auto) 15.9 x10^3/uL (1.8-7.7) Lymphocytes # (Auto) 0.4 x10^3/uL (1.0-4.8) Monocytes # (Auto) 1.0 x10^3/uL (0.0-1.1) Eosinophils # (Auto) 0.0 x10^3/uL (0.0-0.7) Basophils # (Auto) 0.0 x10^3/uL (0.0-0.2) Segmented Neutrophils % 85 % (35-66) Band Neutrophils % 5 % (0-9) Lymphocytes % 5 % (24-48) Monocytes % 5 % (0-10) Toxic Granulation Platelet Estimate Adequate (ADEQUATE) Sodium Level 143 mmol/L (136-145) Potassium Level 3.3 mmol/L (3.5-5.1) Chloride Level 104 mmol/L (98-107) Carbon Dioxide Level 28 mmol/L (21-32) Anion Gap 11 (6-14) Blood Urea Nitrogen 22 mg/dL (7-20) Creatinine 0.8 mg/dL (0.6-1.0) Estimated GFR (Cockcroft-Gault) 68.0 BUN/Creatinine Ratio 28 (6-20) Glucose Level 134 mg/dL (70-99) Calcium Level 9.6 mg/dL (8.5-10.1) Magnesium Level 2.1 mg/dL (1.8-2.4) Total Bilirubin 0.7 mg/dL (0.2-1.0) Aspartate Amino Transf (AST/SGOT) 19 U/L (15-37) Alanine Aminotransferase (ALT/SGPT) 26 U/L (14-59) Alkaline Phosphatase 109 U/L (46-116) Total Protein 7.2 g/dL (6.4-8.2) Albumin 2.9 g/dL (3.4-5.0) Albumin/Globulin Ratio 0.7 (1.0-1.7) Triglycerides Level 80 mg/dL (0-150) Cholesterol Level 170 mg/dL (0-200) LDL Cholesterol, Calculated 97 mg/dL (0-100) VLDL Cholesterol, Calculated 16 mg/dL (0-40) Non-HDL Cholesterol Calculated 113 mg/dL (0-129) HDL Cholesterol 57 mg/dL (40-60) Cholesterol/HDL Ratio 3.0 Thyroid Stimulating Hormone (TSH) 3.313 uIU/mL (0.358-3.74) Glucose (Fingerstick) 160 mg/dL (70-99) O2 Saturation 81 % (92-99) Arterial Blood pH 7.25 (7.35-7.45) Arterial Blood pCO2 at Patient Temp 44 mmHg (35-46) Arterial Blood pO2 at Patient Temp 55 mmHg (65-108) Arterial Blood HCO3 19 mmol/L (21-28) Arterial Blood Base Excess -8 mmol/L (-3-3) FiO2 100 Physical Exam HEENT: Neck Supple W Full Motion Chest: Symmetric LUNGS: Other (mechanical vent ) Heart: irregularly irregular (AFIB, bigeminal PVCs ) Abdomen: Other (soft ) Extremities: No Edema Neurology: alert, other (sedated ) Assessment Assessment 1. Asystole arrest. S/p approximately 16 mins of rescuscitaton with 2 rounds of epi, 300mg Amiodarone, and amp of Ca. Defibrillation x2 prior to ROSC. 2. AFIB with RVR; new onset. Remains in AFIB. Rate controlled 2. Acute respiratory failure with acute on chronic diastolic CHF 3. Mild troponin elevation; peak 0.1. Most probable type II, demand ischemia in setting of above 4. Hypertension; low end 5. Hyperlipidemia 6. MR; moderate to severe 7. Hypokalmemia 8. Hydropneumothorax s/p CPR, intubation. Pig tail catheter placed. Recommendations Cardizem for rate control ASA therapy Diuresis Now DNR Vent management as per pul Supportive care KASSIDY SHINE MD 03/17/20 1638: CARDIAC CONSULT ASSESSMENT/PLAN ASSESSMENT/PLAN Patient seen and examined I agree with our nurse practitioners assessment and plan as above. Atrial fibrillation with rapid ventricular response. Converting IV Cardizem to oral Cardizem. Continuing to monitor. Heart failure. Rate control as above. Continue mild diuresis at this time. Minimally elevated troponin at 0.1. No chest pain. No acute ischemic EKG changes. Will trend. Hypertension. Resume baseline medications. Hyperlipidemia. Statin. Mitral regurgitation. Moderate to severe. Medical treatment as noted above with monitoring clinical course. Thank you for allowing us to participate in the care of your patient. Justicifation of Admission Dx: Justifications for Admission: Justification of Admission Dx: Yes KASSIDY SHINE MD 03/18/20 8757: CARDIO Progress Notes Assessment Assessment Patient seen and evaluated I agree with our nurse practitioners assessment and plan. Asystole arrest. S/p approximately 16 mins of rescuscitaton with 2 rounds of epi, 300mg Amiodarone, and amp of Ca. Defibrillation x2 prior to ROSC. Transferred to the ICU. AFIB with RVR; new onset. Remains in AFIB. Rate controlled Acute respiratory failure with acute on chronic diastolic CHF Mild troponin elevation; peak 0.1. Most probable type II, demand ischemia in setting of above Hyperlipidemia MR; moderate to severe Hydropneumothorax s/p CPR, intubation. Pig tail catheter placed. PATITO YO APRN Mar 18, 2020 12:04 KASSIDY SHINE MD Mar 18, 2020 17:27
--- NOTE | 2020-03-18 12:16 | PDOC5 ---
CODE REPORT CODE REPORT I was called to 2 N. for CODE BLUE, 84-year-old female in [place] unwitnessed cardiac arrest 907. Pt a full code status. ACLS protocol started. Ventilations assisted pre mabu bag w/RT. Patient was admitted to the hospital for weakness, atrial fibrillation with rvr. Developed hypoxia with increased work of breathing was placed on BiPAP around 7 PM last night. This morning patient had called her nurse multiple times complaining of " upset stomach." During code patient was treated with epinephrine, bicarb, calcium, magnesium and amiodarone. Patient with ventricular fibrillation w/defibrillation x2-second incidence there was some suspicion for torsades. Patient was intubated by myself. Patient obtained ROSC at 9:20 AM and was transferred to the ICU -started on dopamine, considered TTM although shortly after CVC placement, family requested pt be a DNR code status. Poor EF squeeze on bedside pocus (SX and PSL). Please see nursing documents reguarding specific details of cardiac arrest. Suspect hypoxia with myocardial ischemia vs cardiogenic shock -pt also w/severe MR. Upon arrival to ICU CVC placed and post confirmatory xray showed right sided pneumothorax (suspect from cpr -central line via US guidance/saw needle advance to vein and post- placement, US w/ no surrounding extravasation or hematoma). Indication: Respiratory failure Consent: Unable to give consent due to emergent nature. Medications Used: see nursing note Procedure: The patient was placed in the appropriate position. Intubation was performed via MAC 4 glide scope, 7-0 endotracheal tube, secured with airway device per RT. Initial confirmation of placement included normal colorimetry (yellow), bilateral breath sounds, tube fogging, adequate chest rise, adequate pulse oximetry reading. A chest x-ray to verify correct placement of the tube showed appropriate tube position. The patient tolerated the procedure well. Complications: none. Indication: Vascular access Consent: Procedure was emergent for vasopressors Procedure: The patient was positioned appropriately and the skin over the right internal jugular vein was prepped and draped in a sterile fashion. Local anesthesia was used. Ultrasound guidance utilized. A large bore needle was used to identify the vein. A guide wire was then inserted into the vein through the needle. A triple lumen catheter was then inserted into the vessel over the guide wire using the Seldinger technique. All ports showed good, free flowing blood return and were flushed with saline solution. The catheter was then securely f astened to the skin with sutures and covered with a sterile dressing. A post procedure X-ray was ordered. The patient tolerated the procedure well. Complications: none. Indication: Right pneumothorax Consent: Emergent procedure to prevent cardiac arrest Procedure: The patient was placed in an appropriate position. An incision was made. Cook catheter ptx kit used and a small bore catheter was advanced approximately 3cm over the rib, stylet then removed and catheter slowly advanced while aspirating. No free air -approximately 60ccs serosanguinous fluid was drained. The tube was sutured in place and the site was covered with an occlusive dressing. All connections were banded. Breath sounds after the procedure were bilateral. A chest x-ray was obtained to evaluate placement. I reviewed CXR with radiology and IR (Dr. Larson). Chest tube anteriorly crossing midline. Pt with no active bleeding from the procedure-no worsening HD instability. Consider CT chest imaging. Complications: Chest tube anteriorly crossed midline. Critical Care: Authorized and Performed by: Lew Bolton DO Total critical care time: approximately 120 minutes Due to a high probability of clinically significant, life threatening deterioration, the patient required my highest level of preparedness to in tervene emergently and I personally spent this critical care time directly and personally managing the patient. This critical care time included obtaining a history; examining the patient; pulse oximetry; ventilator management if necessary; ordering and review of studies; arranging urgent treatment with development of a management plan; evaluation of patient's response to treatment; frequent reassessment; discussion with patient/family; and, discussions with other providers. This critical care time was performed to assess and manage the high probability of imminent, life-threatening deterioration that could result in multi-organ failure. It was exclusive of separately billable procedures and treating other patients and teaching time. Please see MDM section and the rest of the note for further information on patient assessment and treatment. LEW BOLTON DO Mar 18, 2020 12:16
--- NOTE | 2020-03-18 12:26 | EKG ---
[facility] [address] [place] [address] Test Date: 2020-03-16 Test Time: 15:29:56 Pat Name: SHEILA DAVIS Department: Room: Gender: F Medical Appointment Clerk: : 1935 Requested By: CHANDLER FONG Order Number: [id number] Reading MD: Measurements Intervals [place] Rate: 126 P: [place]: QRS: 12 QRSD: 86 T: 154 QT: 312 QTc: 452 Interpretive Statements IRREGULAR RHYTHM, NO P-WAVE FOUND LVH WITH REPOLARIZATION ABNORMALITY ABNORMAL ECG RI6.02 Compared to ECG 03/16/2020 15:08:48 No significant changes
[2020-03-18] MEDS ORDERED: MORPHINE SULFATE 2 MG/ML VIAL. IM ONE (14:00)
[2020-03-18] MEDS ORDERED: MORPHINE SULFATE 10 MG/ML VIAL. IV ONE (14:30)
--- NOTE | 2020-03-18 15:28 | NUR ---
Decision made by Norah PERALES to palliative extubation and allow natural . DR Rivas notified. Pt premedicated with Morphine and Ativan. Levo and Dop gtts dc'd and pt extubated. Several apneic periods and then w/in 10 min/ Norah notifeid per phone. Prayers by nursing at bedside. Body to morgue with pending covid status. Belongings still in ICU and Norah will crop picker tomorrow. Did not know what home at this time.
--- NOTE | 2020-03-18 17:14 | RAD ---
XR CHEST DECUBITUS 1V LT History: Reason: lateral view for chest tube placement /DECUBITUS VIEW / Spl. Instructions: / Histor y: Technique: Lateral radiograph of the chest. Comparison: March 09 Findings: Right chest tube courses anteriorly. Small bilateral pleural effusions. Right-sided pneumothorax bett er characterized on previous study. Pulmonary opacities better characterize on AP view. Impression: 1. Right chest tube courses anteriorly. Recommend chest CT to further evaluate tube location. Electronically signed by: Gerald Ovalle DO (03/18/2020 5:11 PM) [id number]
--- NOTE | 2020-03-18 23:34 | EKG ---
[facility] [address] [place] [address] Test Date: 2020-03-16 Test Time: 15:08:48 Pat Name: SHEILA DAVIS Department: Room: 105 1 Gender: F Executive Sales Manager: : 1935 Requested By: PATITO YO Order Number: [id number] Reading MD: Measurements Intervals [place] Rate: 160 P: [place]: QRS: 13 QRSD: 86 T: 165 QT: 276 QTc: 452 Interpretive Statements IRREGULAR RHYTHM, NO P-WAVE FOUND VENTRICULAR PREMATURE COMPLEX(ES) LVH WITH REPOLARIZATION ABNORMALITY ABNORMAL ECG RI6.02 No previous ECG available for comparison
== END 2020-03-18 15:00 | DRG 291 ==
LOC: ER 15:01 → ED HOLD 17:05 → 3 NORTH 21:02 → 2 NORTH 21:03 → 1 WEST ICU 03-18 09:40
PROVIDERS: ADMIT Internal Medicine; ATTEND Internal Medicine
PROC: 5A09357 Assistance with Respiratory Ventilation, Less than 24 Consecutive Hours, Continuous Positive Airway Pressure (ICD-10-PCS; 2020-03-17)
PROC: 5A1935Z Respiratory Ventilation, Less than 24 Consecutive Hours (ICD-10-PCS; principal; 2020-03-18)
PROC: 0BH17EZ Insertion of Endotracheal Airway into Trachea, Via Natural or Artificial Opening (ICD-10-PCS; 2020-03-18)
PROC: 02H633Z Insertion of Infusion Device into Right Atrium, Percutaneous Approach (ICD-10-PCS; 2020-03-18)
PROC: B548ZZA Ultrasonography of Superior Vena Cava, Guidance (ICD-10-PCS; 2020-03-18)
PROC: 5A12012 Performance of Cardiac Output, Single, Manual (ICD-10-PCS; 2020-03-18)
PROC: 0W9930Z Drainage of Right Pleural Cavity with Drainage Device, Percutaneous Approach (ICD-10-PCS; 2020-03-18)
DX: I13.0 Hypertensive heart and chronic kidney disease with heart failure and stage 1 through stage 4 chronic kidney disease, or unspecified chronic kidney disease (principal); J96.01 Acute respiratory failure with hypoxia; I50.33 Acute on chronic diastolic (congestive) heart failure; J94.8 Other specified pleural conditions; I24.8 Other forms of acute ischemic heart disease; I48.91 Unspecified atrial fibrillation; Z20.828 Contact with and (suspected) exposure to other viral communicable diseases; E78.5 Hyperlipidemia, unspecified; E87.6 Hypokalemia; F41.9 Anxiety disorder, unspecified; G70.00 Myasthenia gravis without (acute) exacerbation; I46.9 Cardiac arrest, cause unspecified; I49.01 Ventricular fibrillation; K21.9 Gastro-esophageal reflux disease without esophagitis; M19.90 Unspecified osteoarthritis, unspecified site; N18.30 Chronic kidney disease, stage 3 unspecified; F32.9 Major depressive disorder, single episode, unspecified; I34.0 Nonrheumatic mitral (valve) insufficiency; I95.9 Hypotension, unspecified; Z66 Do not resuscitate; R29.6 Repeated falls; Z80.3 Family history of malignant neoplasm of breast; Z80.8 Family history of malignant neoplasm of other organs or systems; Z82.49 Family history of ischemic heart disease and other diseases of the circulatory system; Z83.3 Family history of diabetes mellitus; Z85.828 Personal history of other malignant neoplasm of skin
CPT/HCPCS: 36415; 36600; 71045; 71046; 80048; 80053; 80061; 82805; 82962; 83735; 84443; 84484; 85007; 85025; 87426; 93005; 93970; 94002; 94660; 94760; 96365; 96366; J0171; J0282; J1160; J1265; J1644; J1940; J2060; J2250; J2270; J3475; J3490; J7040; U0003; 99285-25; G0378